=== PATIENT | male | born 1960 | race Caucasian/White ===

== ENCOUNTER 2022-03-05 08:15 | Outpatient (CLI) | payer BC, SELFPAY ==
[2022-03-05 14:59] LABS: PSA Screen* 7.67 ng/mL (0.10-4.00)
== END 2022-03-05 08:16 | disposition home or self-care (01) ==
PROVIDERS: PCP Family Medicine; Visit Provider Family Medicine
DX: R97.20 Elevated prostate specific antigen [PSA] (principal)
CPT/HCPCS: 84153

== ENCOUNTER 2022-03-29 13:44 | Outpatient (CLI) | payer BC, SELFPAY | END 2022-03-29 13:45 | disposition home or self-care (01) | LOC: LKVREF 13:45 | PROVIDERS: PCP Family Medicine; Visit Provider Family Medicine | DX: G51.0 Bell's palsy (principal) | CPT/HCPCS: 86618 ==

== ENCOUNTER 2022-11-05 08:55 | Outpatient (CLI) | payer BC, SELFPAY | END 2022-11-05 08:56 | disposition home or self-care (01) | LOC: NFLDREF 11-06 02:33 | PROVIDERS: PCP Family Medicine; Referring Provider Family Medicine; Visit Provider Family Medicine | DX: E11.9 Type 2 diabetes mellitus without complications (principal); I10 Essential (primary) hypertension; E78.5 Hyperlipidemia, unspecified; R97.20 Elevated prostate specific antigen [PSA] | CPT/HCPCS: 80048; 80061; 82043; 82570 ==

== ENCOUNTER 2023-02-25 09:10 | Outpatient (CLI) | payer BC, SELFPAY | END 2023-02-25 09:11 | disposition home or self-care (01) | LOC: NFLDREF 14:39 | PROVIDERS: PCP Family Medicine; Referring Provider Family Medicine; Visit Provider Family Medicine | DX: I10 Essential (primary) hypertension (principal); E11.9 Type 2 diabetes mellitus without complications; E78.5 Hyperlipidemia, unspecified; C61 Malignant neoplasm of prostate | CPT/HCPCS: 80053; 80061; 82043; 82570 ==

== ENCOUNTER 2023-03-13 08:55 | Outpatient (CLI) | payer BC, SELFPAY | END 2023-03-13 08:56 | disposition home or self-care (01) | LOC: NFLDREF 03-14 13:44 | PROVIDERS: PCP Family Medicine; Referring Provider Family Medicine; Visit Provider Family Medicine | DX: C61 Malignant neoplasm of prostate (principal) | CPT/HCPCS: 84153 ==

== ENCOUNTER 2023-06-12 14:26 | Outpatient (REF) | payer BC, SELFPAY ==
[2023-06-12 15:44] LABS: PSA Diagnostic* 0.56 ng/mL (0.10-4.00)
== END 2023-06-12 14:27 | disposition home or self-care (01) ==
LOC: NPINS 14:26
PROVIDERS: PCP Family Medicine; Visit Provider Urology
DX: C61 Malignant neoplasm of prostate (principal)
CPT/HCPCS: 84153

== ENCOUNTER 2023-06-20 07:04 | Outpatient (CLI) | payer BC, SELFPAY ==
--- NOTE | 2023-06-20 08:48 | W.ANESCHARGE ---
Anesthesia Charges Start Date/Time Anesthesia Start Date: 06/20/23 Anesthesia Start Time: 08:13 Stop Date/Time Anesthesia Stop Date: 06/20/23 Anesthesia Stop Time: 08:45
--- NOTE | 2023-06-20 11:19 | W.ANESCHARGE ---
Anesthesia Charges Start Date/Time Anesthesia Start Date: 06/20/23 Anesthesia Start Time: 08:13 Stop Date/Time Anesthesia Stop Date: 06/20/23 Anesthesia Stop Time: 08:45
== END 2023-06-20 07:05 | disposition home or self-care (01) ==
LOC: OP CLINIC 07:05
PROVIDERS: PCP Family Medicine; Visit Provider Surgery
DX: Z12.11 Encounter for screening for malignant neoplasm of colon (principal); K63.5 Polyp of colon; Z86.010 Personal history of colon polyps
CPT/HCPCS: 00811; 45385; 88305; J2704

== ENCOUNTER 2023-06-27 08:16 | Outpatient (CLI) | payer BC, SELFPAY ==
--- NOTE | 2023-06-27 08:15 | CRLHL7_ITS ---
For Patients: As a result of the Century Cures Act, medical imaging exams and procedure reports are released immediately into your electronic medical record. You may view this report before your referring provider. If you have questions, please contact your health care provider. NM whole-body bone Scan: Technique: Nuclear medicine whole-body bone scan per protocol including anterior and posterior whole body images and spot images of the pelvis. Radiopharmaceutical: 27.2 millicuries technetium 99 M MDP intravenously. Clinical information: Prostate cancer Comparison: CT abdomen pelvis June 27, 2023 Findings: There are no abnormal focal areas of activity suspicious for metastatic disease. Degenerative type uptake is noted within the shoulders, lumbar spine, hips and knees. There is normal renal and urinary bladder activity. There is no abnormal soft tissue uptake. Impression: No scintigraphic evidence of osteoblastic metastatic disease. Dictated by Marlo Gallo MD @ 06/28/2023 8:13:32 AM (Electronically Signed)
--- NOTE | 2023-06-27 09:00 | CRLHL7_ITS ---
For Patients: As a result of the Century Cures Act, medical imaging exams and procedure reports are released immediately into your electronic medical record. You may view this report before your referring provider. If you have questions, please contact your health care provider. Indication: Malignant tumor of prostate Technique: CT Abdomen/Pelvis W/ ISOVUE 370 Please note that all CT scans at this facility use dose modulation, iterative reconstruction, and/or weight-based dosing when appropriate to reduce radiation dose to as low as reasonably achievable. Comparison: None Findings: Lung bases clear. No pleural effusion. No free intraperitoneal air. No suspicious intrahepatic lesion. Mild hepatic steatosis. Gallbladder is incompletely distended. No biliary obstruction. Incidental duodenal diverticulum. No pancreatic lesion. Normal spleen. The adrenal glands are normal. Normal kidneys. No enlarged lymph nodes. Ureters normal. Postop changes prostatectomy. Bladder nondistended. Mild sigmoid diverticulosis. No diverticulitis. No bowel obstruction. No free fluid or abscess. Appendix normal. Small supraumbilical hernia defect containing fat measuring 1 cm. Bilateral pars defects L5 with slight anterolisthesis of L5 on S1. 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 Severe degenerative disc disease L3-4 with discogenic sclerosis. No vertebral body compression fracture. Mild spurring at the hip joints. Impression: No evidence of metastatic disease. Please note that all CT scans at this facility use dose modulation, iterative reconstruction, and/or weight-based dosing when appropriate to reduce radiation dose to as low as reasonably achievable. Dictated by Jean Camacho MD @ 06/27/2023 11:45:18 AM (Electronically Signed)
[2023-06-27 09:14] LABS: Creatinine* 0.7 mg/dL (0.5-1.5); Estimated Glomerular Filt Rate 102 ml/min
== END 2023-06-27 08:17 | disposition home or self-care (01) ==
LOC: NM 08:17
PROVIDERS: PCP Family Medicine; Visit Provider Urology
DX: C61 Malignant neoplasm of prostate (principal)
CPT/HCPCS: 36415; 74177; 78306; 82565; A9503; Q9967

== ENCOUNTER 2023-09-27 08:00 | Outpatient (RCR) | payer BC, MEDICARE, SELFPAY ==
--- NOTE | 2023-07-17 14:19 | URNOTE ---
Prior authorization is not required for Antonio ([id number]) per [facility] REf #[id number]
== END 2024-01-25 23:59 | disposition home or self-care (01) ==
PROVIDERS: PCP Family Medicine; Visit Provider Nurse Practitioner
DX: C61 Malignant neoplasm of prostate (principal); Z51.89 Encounter for other specified aftercare
CPT/HCPCS: 97110; 97162; 97535

== ENCOUNTER 2023-10-03 09:53 | Outpatient (CLI) | payer BC, MEDICARE, SELFPAY | END 2023-10-03 09:54 | disposition home or self-care (01) | LOC: NFLDREF 10-04 06:06 | PROVIDERS: PCP Family Medicine; Referring Provider Family Medicine; Visit Provider Family Medicine | DX: E11.9 Type 2 diabetes mellitus without complications (principal); E78.5 Hyperlipidemia, unspecified; I10 Essential (primary) hypertension; Z79.84 Long term (current) use of oral hypoglycemic drugs; Z79.85 Long-term (current) use of injectable non-insulin antidiabetic drugs | CPT/HCPCS: 80053; 80061 ==

== ENCOUNTER 2023-11-19 10:45 | Outpatient (RCR) | payer BC, MEDICARE, SELFPAY ==
--- NOTE | 2023-07-18 12:10 | PC.NURSE ---
Diagnosis: Prostate Cancer
--- NOTE | 2023-07-18 12:10 | PC.NURSE ---
Called pt today to schedule his first Eligard injection for today or tomorrow per [facility] instructions. Pt states that he hasn't received his bicalutamide yet so cannot get his shot. He was instructed to get his first shot 5 days after starting the oral medication. Vick will call to schedule once he starts. This production underwriter called to update [facility]. Understanding verbalized.
[2023-07-30 13:32] VITALS: BP 112/71; PULSE 77; RESP 16; TEMP 36.5; O2SAT 97
[2023-07-30] MEDS: LEUPROLIDE ACETATE 7.5 MG (SQ) SYRINGE SUBCUT (14:43)
[2023-08-27 13:31] VITALS: BP 128/77; PULSE 77; RESP 16; TEMP 36.3; O2SAT 96
[2023-08-27] MEDS: LEUPROLIDE ACETATE 22.5 MG (SQ) SYRINGE SUBCUT (13:43)
[2023-11-19 09:58] VITALS: BP 130/84; PULSE 82; RESP 16; TEMP 35.3; O2SAT 95
[2023-11-19] MEDS: LEUPROLIDE ACETATE 7.5 MG (SQ) SYRINGE SUBCUT (10:31)
== END 2024-01-26 23:59 | disposition home or self-care (01) ==
LOC: CCIC 10:45
PROVIDERS: PCP Family Medicine; Referring Provider Family Medicine; Visit Provider Clinical Nurse Specialist
DX: C61 Malignant neoplasm of prostate (principal)
CPT/HCPCS: 96401; J9217

== ENCOUNTER 2024-02-07 09:10 | Outpatient (CLI) | payer BC, MEDICARE, SELFPAY ==
--- OUTSIDE RECORDS SUMMARY | 2024-02-07 09:14 | XMS_ITS | Clinical Summary ---
Author Organization [facility] Address [address] [place] [address] Care Team Providers Care Yarder Engineer Name Role Phone Unavailable Primary Care Provider Unavailabl e Source Comments Patient records contain information from all sites at [facility]. For routine questions regarding patient records, call [phone] during business hours, M-F 8:00 AM - 5:00 PM Central Time. Record requests for emergency care only can be directed to [phone] at any time.[facility] Allergies Active Allergy Reactions Criticality Noted Date Comments Flu Vac 2015 (65 Up)-Mf59c(Pf) Other (see comments) 07/04/2023 Haemophilus Influenzae Type B Other (see comments) 01/26/2008 Influenza Virus Vaccines Other (see comments) 0 03/29/2022 Yellow Fever Vaccine Live Other (see comments) 01/26/2008 Medications Medication Sig Dispensed Refills Start Date End Date Status aspirin 81 mg chewable tablet Chew 81 mg. 07/11/2022 Active bisacodyL (DULCOLAX) 10 mg suppository Insert 10 mg into the rectum daily as needed. 07/11/2022 Active Contour Test Strips Use to check blood sugars twice daily.* 06/24/2023 Active calcium carbonate-vitamin D3 1,500 mg (600 mg calcium)-5 mcg (200 Unit) per tablet daily. Active glipiZIDE (GLUCOTROL XL) 10 mg 24 hr tablet TAKE ONE TABLET BY MOUTH TWICE DAILY* Active lisinopril-hydroCH LOROthiazide (PRINZIDE,ZESTORET IC) 20-25 mg per tablet take 1 tab orally daily* 09/14/2021 Active metFORMIN (GLUCOPHAGE) 500 mg tablet Active Ozempic 1 mg/dose (4 mg/3 mL) injection INJECT 1 mg (0.75 mL) subcutaneously every week* Active simvastatin (ZOCOR) 20 mg tablet Take 1 tablet by mouth at bedtime. 09/10/2013 Active SITagliptin phosphate (JANUVIA) 100 mg tablet Take 100 mg by mouth. 09/10/2013 Active bicalutamide (CASODEX) 50 mg tablet Take 1 tablet (50 mg total) by mouth daily for 21 days. Take at the same time everyday. Take with or without food. 21 tablet 07/16/2023 Active Active Problems Problem Noted Date Diagnosed Date Rising Prostate Specific Ant igen Following Treatment For Malignant Cancer Of Prostate 07/01/2023 Primary Malignant Neoplasm Of Prostate Cancer Staging:Pathologic stage from 07/11/2022: pT2, cN0, cM0, PSA: 6.5, Grade Group: 2 - Unsigned Encounters Date Type Department Care Team Description 01/09/2024 Clinical Communication Department of Radiation Oncology in [address] [address] Nathen Baker M.D. 12/03/2023 9:06 AM CDT - 12/03/2023 11:59 PM CDT Hospital Encounter Department of Radiation Oncology in [address] [address] Nathen Baker M.D. Discharge Disposition: Home or Self Care 12/03/2023 Documentation Department of Radiation Oncology in [address] [address] Nathen Baker M.D. 12/02/2023 9:04 AM CDT - 12/02/2023 11:59 PM CDT Hospital Encounter Department of Radiation Oncology in [address] [address] Nathen Baker M.D. Discharge Disposition: Home or Self Care 11/29/2023 9:03 AM CDT - 11/29/2023 11:59 PM CDT Hospital Encounter Department of Radiation Oncology in [address] [address] Nathen Baker M.D. Discharge Disposition: Home or Self Care 11/28/2023 9:05 AM CDT - 11/28/2023 11:59 PM CDT Hospital Encounter Department of Radiation Oncology in [address] [address] Nathen Baker M.D. Discharge Disposition: Home or Self Care 11/27/2023 9:12 AM CDT - 12/02/2023 6:50 PM CDT Hospital Encounter Department of Radiation Oncology in [address] [address] Nathen Baker M.D. Rising Prostate Specific Antigen Following Treatment For Malignant Cancer Of Prostate (Primary Dx); Primary Malignant Neoplasm Of Prostate (HCC) 11/27/2023 9:11 AM CDT Hospital Encounter Department of Radiation Oncology in [address] [address] Nathen Baker M.D. Discharge Disposition: Home or Self Care 11/26/2023 9:05 AM CDT - 11/26/2023 11:59 PM CDT Hospital Encounter Department of Radiation Oncology in [address] [address] Nathen Baker M.D. Discharge Disposition: Home or Self Care 11/25/2023 9:04 AM CDT - 11/25/2023 11:59 PM CDT Hospital Encounter Department of Radiation Oncology in [address] [address] Nathen Baker M.D. Discharge Disposition: Home or Self Care 11/22/2023 9:00 AM CDT - 11/22/2023 11:59 PM CDT Hospital Encounter Department of Radiation Oncology in [address] [address] Nathen Baker M.D. Discharge Disposition: Home or Self Care 11/21/2023 9:02 AM CDT - 11/21/2023 11:59 PM CDT Hospital Encounter Department of Radiation Oncology in [address] [address] Nathen Baker M.D. Discharge Disposition: Home or Self Care 11/20/2023 9:01 AM CDT - 11/22/2023 10:02 PM CDT Hospital Encounter Department of Radiation Oncology in [address] [address] Nathen Baker M.D. Primary Malignant Neoplasm Of Prostate (HCC) 11/20/2023 9:01 AM CDT - 11/20/2023 11:59 PM CDT Hospital Encounter Department of Radiation Oncology in [address] [address] Nathen Baker M.D. Discharge Disposition: Home or Self Care 11/19/2023 9:03 AM CDT - 11/19/2023 11:59 PM CDT Hospital Encounter Department of Radiation Oncology in [address] [address] Nathen Baker M.D. Discharge Disposition: Home or Self Care 11/18/2023 9:01 AM CDT - 11/18/2023 11:59 PM CDT Hospital Encounter Department of Radiation Oncology in [address] [address] Nathen Baker M.D. Discharge Disposition: Home or Self Care 11/15/2023 9:02 AM CDT - 11/15/2023 11:59 PM CDT Hospital Encounter Department of Radiation Oncology in [address] [address] Nathen Baker M.D. Discharge Disposition: Home or Self Care 11/14/2023 9:02 AM CDT - 11/14/2023 11:59 PM CDT Hospital Encounter Department of Radiation Oncology in [address] [address] Nathen Baker M.D. Discharge Disposition: Home or Self Care 11/13/2023 9:04 AM CDT - 11/15/2023 9:58 AM CDT Hospital Encounter Department of Radiation Oncology in [address] [address] Nathen Baker M.D. Primary Malignant Neoplasm Of Prostate (HCC) 11/13/2023 9:04 AM CDT - 11/13/2023 11:59 PM CDT Hospital Encounter Department of Radiation Oncology in [address] [address] Nathen Baker M.D. Discharge Disposition: Home or Self Care 11/12/2023 9:02 AM CDT - 11/12/2023 11:59 PM CDT Hospital Encounter Department of Radiation Oncology in [address] [address] Nathen Baker M.D. Discharge Disposition: Home or Self Care 11/11/2023 9:03 AM CDT - 11/11/2023 11:59 PM CDT Hospital Encounter Department of Radiation Oncology in [address] [address] Nathen Baker M.D. Discharge Disposition: Home or Self Care 11/08/2023 9:02 AM CDT - 11/08/2023 11:59 PM CDT Hospital Encounter Department of Radiation Oncology in [address] [address] Nathen Baker M.D. Discharge Disposition: Home or Self Care 11/06/2023 9:03 AM CDT - 11/10/2023 1:15 PM CDT Hospital Encounter Department of Radiation Oncology in [address] [address] Nathen Baker M.D. Primary Malignant Neoplasm Of Prostate (HCC) from Last 3 Months Family History Medical History Relation Name Comments Skin cancer Father Breast cancer Paternal Grandmother Kidney cancer Sister Prostate cancer Neg Hx Relation Name Status Comments Father Paternal Grandmother Sister Social History Tobacco Use Types Packs/Day Years Used Date Smoking Tobacco: Never Smokeless Tobacco: Never Tobacco Cessation:Counseling Given: Not Answered Alcohol Use Standard Drinks/Week Comments Yes 0 (1 standard drink = 0.6 oz pur e alcohol) rarely [facility] Utilities Answer Date Recorded In the past 12 months has e [employer], gas, oil, or water [employer] threatened to shut off services in your home? No 06/28/2023 Exercise Vital Sign Answer Date Recorde d On average, how many days pe r week do you engage in moderate to strenuous exercise (like a brisk walk)? 4 days 06/28/2023 On average, how many minutes do you engage in exercise at this level? 20 min 06/28/2023 Hunger Vital Sign Answer Date Recorded Within the past 12 months, y ou worried that your food would run out before you got the money to buy more. Never true 06/28/20 Within the past 12 months, t he food you bought just didn't last and you didn't have money to get more. Never true 06/28/2023 PRAPARE - Transportation Answer Date Re corded In the past 12 months, has l ack of transportation kept you from medical appointments or from getting medications? No 06/14 In the past 12 months, has l ack of transportation kept you from meetings, work, or from getting things needed for daily living? No 06/28/2023 Nutrition Answer Date Recorded Nutrition: EVOO Fat Source Unknown 06/28 On average, how many serving s of fruits and vegetables do you eat per day (serving size is equal to 1 cup or approximately the size of a tennis ball)? 0-2 06/28/2023 Dental Answer Date Recorded Dental: Regular Dentist Yes 06/28/20 Employment Answer Date Recorded Employment status Employed and actively working without restrictions 06/28/2023 Housing Stability Answer Date Recorded What is your living situation today? I have a [facility] place to live 06/28/2023 Sex and Gender Information Value Date Recorded Sex Assigned at Male 06/28/2023 6:50 PM DIRECTOR UTILIZATION MANAGEMENT Gender Identity Male 06/28/2023 6:50 PM DIRECTOR UTILIZATION MANAGEMENT Sexual Orientation Straight 06/28/2023 6: 50 PM DIRECTOR UTILIZATION MANAGEMENT Last Filed Vital Signs Vital Sign Reading Time Taken Comments Blood Pressure 138/67 10/03/2023 1:28 PM CDT Pulse 87 10/03/2023 1:28 PM CDT Temperature 36.7 ??C (98 ??F) 11/27/2023 9:43 AM CDT Respiratory Rate - - Oxygen Saturation - - Inhaled Oxygen Concentration - - Weight 101 kg (223 lb 1.7 oz) 11/27/2023 9:43 AM CDT Height - - Body Mass Index - - Plan of Treatment Upcoming Encounters Date Type Department Care Team (Latest Contact Info) Description 03/30/2024 9:45 AM CDT Clinical Communication Virtual Review in [place], [place] [address] [place] [address] 04/01/2024 3:30 PM CDT Appointment Department of Radiation Oncology in [address] [address] Nathen Baker M.D. [address] [place] [phone] Health Maintenance Due Date Last Done Comments CT Colonography 1958 Cologuard 1958 HIV Screening 1960 Hepatitis C Screening 1960 Pneumococcal vaccine (65+ years) (1 of 2 - PCV) 1964 DTaP,Tdap,and Td Vaccines (3 - Td or Tdap) 06/10/2022 06/10/2012, 12/05/2007, 12/05/2007, Additional history exists Colonoscopy 07/14/2022 07/14/2017, 01/04/2009 Colorectal Cancer Surveillance 07/14/2022 COVID-19 Vaccine ( season) 2023 03/26/2022, 07/05/2021, 10/28/2020, Additional history exists Creatinine Level (Kidney Function Test) 07/12/2023 07/12/2022 Potassium Level 07/12/2023 07/12/2022 Sodium Level 07/12/2023 07/12/2022 Depression Screening (Annual PHQ-2) 07/15/2023 Fasting Glucose for Diabetes Screening 07/11/2026 07/11/2023, 07/12/2022 Zoster Vaccines Completed 10/19/2020, 08/15, 08/19/2020, Additional history exists Fall Risk Screen (Annual) Completed 10/25/2023 HPV Vaccines Aged Out No longer eligi ble based on patient's age to complete this topic Procedures Procedure Name Priority Date/Time Associated Diagnosis Comments ARIA COURSE COMPLETE TREATMENT INFORMATION Routine 12/03/2023 9:15 AM CDT ARIA DAILY TREATMENT INFORMATION Routine 12/03/2023 9:15 AM CDT ARIA DAILY TREATMENT INFORMATION Routine 12/02/2023 9:13 AM CDT ARIA DAILY TREATMENT INFORMATION Routine 11/29/2023 9:21 AM CDT ARIA DAILY TREATMENT INFORMATION Routine 11/28/2023 9:46 AM CDT ARIA DAILY TREATMENT INFORMATION Routine 11/27/2023 9:30 AM CDT ARIA DAILY TREATMENT INFORMATION Routine 11/26/2023 9:26 AM CDT ARIA DAILY TREATMENT INFORMATION Routine 11/25/2023 9:17 AM CDT ARIA DAILY TREATMENT INFORMATION Routine 11/22/2023 9:24 AM CDT ARIA DAILY TREATMENT INFORMATION Routine 11/21/2023 9:15 AM CDT ARIA DAILY TREATMENT INFORMATION Routine 11/20/2023 9:17 AM CDT ARIA DAILY TREATMENT INFORMATION Routine 11/19/2023 9:15 AM CDT ARIA DAILY TREATMENT INFORMATION Routine 11/18/2023 9:21 AM CDT ARIA DAILY TREATMENT INFORMATION Routine 11/15/2023 9:32 AM CDT ARIA DAILY TREATMENT INFORMATION Routine 11/14/2023 9:55 AM CDT ARIA DAILY TREATMENT INFORMATION Routine 11/13/2023 9:30 AM CDT ARIA DAILY TREATMENT INFORMATION Routine 11/12/2023 9:22 AM CDT ARIA DAILY TREATMENT INFORMATION Routine 11/11/2023 9:18 AM CDT ARIA DAILY TREATMENT INFORMATION Routine 11/08/2023 10:19 AM CDT GLUCOSE POCT, B Routine 07/11/2023 2:50 PM DIRECTOR UTILIZATION MANAGEMENT from Last 3 Months or Most Recently Relevant to Health Maintenance Results * Aria Course Complete Treatment Information (12/03/2023 9:15 AM CDT) [facility] Signature Course ID [id number] ESQUEDA ARIA Course Start Date 4 09:30 CDT ESQUEDA ARIA Course End Date 4 16:06 CDT ESQUEDA ARIA First Treatment Date 4 11:34 CDT ESQUEDA ARIA Last Treatment Date 4 09:15 CDT ESQUEDA ARIA Treatment Elapsed Days 43 ESQUEDA ARIA Reference Point [id number] ESQUEDA ARIA Dosage Given to Date cGy 6880 ESQUEDA ARIA Plan ID [id number] ESQUEDA ARIA Fractions Treated to Date 25 ESQUEDA ARIA Planned Total Fractions 25 ESQUEDA ARIA Prescribed Dose Per Fraction 215 ESQUEDA ARIA Prescription Dose in cGy 5375 ESQUEDA ARIA Plan Primary Reference Point [id number] ESQUEDA ARIA Plan ID [id number] ESQUEDA ARIA Fractions Treated to Date 7 ESQUEDA ARIA Planned Total Fractions 7 ESQUEDA ARIA Prescribed Dose Per Fraction 215 ESQUEDA ARIA Prescription Dose in cGy 1505 ESQUEDA ARIA Plan Primary Reference Point [id number] ESQUEDA ARIA 12/03/2023 9:15 AM CDT Provider Not In System RADIATION ONCOLOG Y ORDERABLES YIN LIZAMA na * Aria Daily Treatment Information (12/03/2023 9:15 AM CDT) Only the most recent of18 resultswithin the time period is included. Course ID [id number] ESQUEDA ARIA Course Start Date 4 09:30 CDT ESQUEDA ARIA First Treatment Date 4 11:34 CDT ESQUEDA ARIA Last Treatment Date 4 09:15 CDT ESQUEDA ARIA Treatment Elapsed Days 43 ESQUEDA ARIA Reference Point [id number] ESQUEDA ARIA Dosage Given to Date cGy 6880 ESQUEDA ARIA Session Dosage Given 215 ESQUEDA ARIA Plan ID [id number] ESQUEDA ARIA Fractions Treated to Date 7 ESQUEDA ARIA Planned Total Fractions 7 ESQUEDA ARIA Prescribed Dose Per Fraction 215 ESQUEDA ARIA Prescription Dose in cGy 1505 ESQUEDA ARIA Plan Primary Reference Point [id number] ESQUEDA ARIA 12/03/2023 9:15 AM CDT Provider Not In System RADIATION ONCOLOG Y ORDERABLES Performing Organization Address City/[facility] Co de Phone Number YIN LIZAMA na * (ABNORMAL) Glucose, POCT (07/11/2023 2:50 PM DIRECTOR UTILIZATION MANAGEMENT) Glucose, POCT, B 212(H) 70 - 140 mg/dL 07/11/2023 2:54 PM DIRECTOR UTILIZATION MANAGEMENT PCMO Site Capillary 07/11/2023 2:54 PM DIRECTOR UTILIZATION MANAGEMENT PCMO Blood 07/11/2023 2:50 PM DIRECTOR UTILIZATION MANAGEMENT 07/11/2023 2:54 PM DIRECTOR UTILIZATION MANAGEMENT Unknown Provider LAB POCT ORDERABLES- MANUAL POC [facility] [address] [place] [address], [facility] PCMO [facility] POC [address] [place] [address] from Last 3 Months or Most Recently Relevant to Health Maintenance
--- OUTSIDE RECORDS SUMMARY | 2024-02-07 09:14 | XMS_ITS | Encounter Summary ---
Author Organization [facility] Address [address] [place] [address] Care Team Providers Care .Net Programmer Name Role Phone Unavailable Primary Care Provider Unavailabl e Encounter Details Date Type Department Care Team (Late st Contact Info) Description 01/09/2024 Clinical Communication Department of Radiation Oncology in [place], [place] [address] [place] [address] Nathen Baker M.D. [address] [place] [address] Social History Tobacco Use Types Packs/Day Years Used Date Smoking Tobacco: Never Smokeless Tobacco: Never Alcohol Use Standard Drinks/Week Comments Yes 0 (1 standard drink = 0.6 oz pur e alcohol) rarely [facility] Utilities Answer Date Recorded In the past 12 months has [employer], gas, oil, or water [employer] threatened to shut off services in your [...] money to buy more. Never true 06/28/20 23 Within the past 12 months, t he [...] your living situation today? I have a [facility] place to live 06/28/2023 Sex and Gender Information Value Date Recorded Sex Assigned at Male 06/28/2023 6:50 PM ORAL SURGERY PHYSICIAN Gender Identity Male 06/28/2023 6:50 PM ORAL SURGERY PHYSICIAN Sexual Orientation Straight 06/28/2023 6: 50 PM ORAL SURGERY PHYSICIAN documented as of this encounter Plan of Treatment Upcoming Encounters Date Type Department Care Team (Latest Contact Info) Description 03/30/2024 9:45 AM CDT Clinical Communication Virtual Review in [place], [place] [address] [place] [address] 04/01/2024 3:30 PM CDT Appointment Department of Radiation Oncology in [place] [address] [place] [address] Nathen Baker M.D. [address] [place] [address] documented as of this encounter Visit Diagnoses Not on filedocumented in this encounter
--- OUTSIDE RECORDS SUMMARY | 2024-02-07 09:14 | XMS_ITS | Encounter Summary ---
Author Organization [facility] Address [address] [place] [address] Care Team Providers Care Amusement Centre Manager Name Role Phone Unavailable Primary Care Provider Unavailabl e Encounter Details Date Type Department Care Team (Late st Contact Info) Description 12/03/2023 Documentation Department of Radiation Oncology in [place], [place] [address] [place] [address] Nathen Baker M.D. [address] [place] [phone] Social History Tobacco Use Types Packs/Day Years Used Date Smoking Tobacco: Never Smokeless Tobacco: Never Alcohol Use Standard Drinks/Week Comments Yes 0 (1 standard drink = 0.6 oz pur e alcohol) rarely [facility] Utilities Answer Date Recorded In the past 12 months has [employer], [employer], oil, or water [employer] threatened to shut off services in your [...] your living situation today? I have a [facility] place to live 06/28/2023 Sex and Gender Information Value Date Recorded Sex Assigned at Male 06/28/2023 6:50 PM C SOFTWARE DEVELOPER Gender Identity Male 06/28/2023 6:50 PM C SOFTWARE DEVELOPER Sexual Orientation Straight 06/28/2023 6: 50 PM C SOFTWARE DEVELOPER documented as of this encounter Miscellaneous Notes * Radiation Completion Notes - Anni Godwin R.N. - 12/03/2023 11:59 PM CDT DIAGNOSIS: 1. Primary Malignant Neoplasm Of Prostate (HCC) Attending Physician: Nathen Baker M.D. ([phone]) Treatment Intent: Curative Concomitant Therapy: Hormonal Therapy Single Plan Treatment Course: [id number] Plan ID Fractions Dose / Fraction (cGy) Dose Treated (cGy) Dose Planned (cGy) First Treatment Last Treatment Elapsed Days [id number] 215 5375 5375 10/21/2023 11/22/2023 32 [id number] 215 1505 1505 11/25/2023 12/03/2023 8 Treatment Site Summary 6880 6880 10/21/2023 12/03/2023 43 Course Summary 10/21/2023 12/03/2023 43 Radiation Modality: Photons CLINICAL SUMMARY Mr. Vick Lafleur completed radiation treatment as planned without interruptions. The course of treatment was tolerated well. The patient experienced toxicities of grade 1 diarrhea and grade 1 urinary frequency during radiation treatment. TREATMENT RESPONSE: Response to treatment will be determined by post-treatment imaging and/or laboratory work. RECOMMENDED FOLLOW UP: Radiation Oncologist. He will follow-up with us in March after pre-visitPSA and testosterone labs are drawn at [facility] in [place]. Signed by: Anni Godwin R.N., 12/16/2023 2:59 PM CDT [facility] [address] [place] [address] documented in this encounter Plan of Treatment Upcoming Encounters Date Type Department Care Team (Latest Contact Info) Description 03/30/2024 9:45 AM CDT Clinical Communication Virtual Review in [address] [address] 04/01/2024 3:30 PM CDT Appointment Department of Radiation Oncology in [address] [address] Nathen Baker M.D. [address] [place] [phone] documented as of this encounter Visit Diagnoses Diagnosis Primary Malignant Neoplasm Of Prostate (HCC)- Primary documented in this encounter
--- OUTSIDE RECORDS SUMMARY | 2024-02-07 09:14 | XMS_ITS | Encounter Summary ---
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 200 [place] [address] [facility] Referral ID Status Reason Start Date Expiration Date V isits Requested Visits Authorized [id number] Authorized 10/16/2023 07/14/2024 36 36 Encounter Details Date Type Department Care Team (Latest Contact Info) Description 12/02/2023 9:04 AM CDT - 12/02/2023 11:59 PM CDT Hospital Encounter Department of Radiation Oncology in [place], [place] [address] [place] [phone] Nathen Baker M.D. [address] [place] [phone] Discharge Disposition: Home or Self Care Social History Tobacco Use Types Packs/Day Years Used Date Smoking Tobacco: Never Smokeless Tobacco: Never Alcohol Use Standard Drinks/Week Comments Yes 0 (1 standard drink = 0.6 oz pur e alcohol) rarely [facility] Utilities Answer Date Recorded In the past 12 months has e [employer], [employer], oil, or water [employer] threatened to shut off services in your [...] your living situation today? 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 07/11/2022 bisacodyL (DULCOLAX) 10 mg suppository Insert 10 mg into the rectum daily as needed. 07/11/2022 calcium carbonate-vitamin D3 1,500 mg (600 mg calcium)-5 mcg (200 Unit) per tablet daily. Contour Test Strips Use to check blood sugars twice daily.* 06/24/2023 glipiZIDE (GLUCOTROL XL) 10 mg 24 hr tablet TAKE ONE TABLET BY MOUTH TWICE DAILY* lisinopril-hydroCHLORO thiazide (PRINZIDE,ZESTORETIC) 20-25 mg per tablet take 1 tab orally daily* metFORMIN (GLUCOPHAGE) 500 mg tablet Ozempic 1 mg/dose (4 mg/3 mL) injection INJECT 1 mg (0.75 mL) subcutaneously every week* simvastatin (ZOCOR) 20 mg tablet Take 1 tablet by mouth at bedtime. 09/10/2013 SITagliptin phosphate (JANUVIA) 100 mg tablet Take 100 mg by mouth. 09/10/2013 documented as of this encounter Plan of Treatment Upcoming Encounters Date Type Department Care Team (Latest Contact Info) Description 03/30/2024 9:45 AM CDT Clinical Communication Virtual Review in [place], [place] 200 [place] [address] 04/01/2024 3:30 PM CDT Appointment Department of Radiation Oncology in [address] [phone] Nathen Baker M.D. [address] [place] [phone] documented as of this encounter Visit Diagnoses Not on filedocumented in this encounter
--- OUTSIDE RECORDS SUMMARY | 2024-02-07 09:14 | XMS_ITS | Encounter Summary ---
Author Organization [facility] Address [address] [place] [address] Care Team Providers Care Transfer Pumper Name Role Phone Unavailable Primary Care Provider Unavailabl e Reason for Visit * Radiation Therapy (Routine) - Authorized Specialty Diagnoses / Procedures Referred By Amandeep baez Referred To Contact Diagnoses Primary Malignant Neoplasm Of Prostate (HCC) Procedures Prior Auth Rad Tx [place] IMRT SIMPLE IMRT prostate Nathen Baker M.D. 200 [place] [address] [facility] Referral ID Status Reason Start Date Expiration Date V isits Requested Visits Authorized [id number] Authorized 10/16/2023 07/14/2024 36 36 Encounter Details Date Type Department Care Team (Latest Contact Info) Description 11/29/2023 9:03 AM CDT - 11/29/2023 11:59 PM CDT Hospital Encounter Department of Radiation Oncology in [place], [place] [address] [place] [phone] Nathen Baker M.D. [address] [place] [phone] Discharge Disposition: Home or Self Care Social History Tobacco Use Types Packs/Day Years Used Date Smoking Tobacco: Never Smokeless Tobacco: Never Alcohol Use Standard Drinks/Week Comments Yes 0 (1 standard drink = 0.6 oz pur e alcohol) rarely [facility] Utilities Answer Date Recorded In the past 12 months has e [employer], [employer], oil, or water [employer] threatened to shut off services in your [...] your living situation today? 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 [address] [place] [phone] documented as of this encounter Visit Diagnoses Not on filedocumented in this encounter
--- OUTSIDE RECORDS SUMMARY | 2024-02-07 09:14 | XMS_ITS | Referral Summary ---
Author Organization [facility] Address [address] [place] [address] Care Team Providers Care Assurance Senior Manager Insurance Name Role Phone Unavailable Primary Care Provider Unavailabl e Source Comments Patient records contain information from all sites at [facility]. For routine questions regarding patient records, call [phone] during business hours, M-F 8:00 AM - 5:00 PM Central Time. Record requests for emergency care only can be directed to [phone] at any time.[facility] Encounters Date Type Department Care Team Description 01/09/2024 Clinical Communication Department of Radiation Oncology in [address] [phone] Nathen Baker M.D. 12/03/2023 Documentation Department of Radiation Oncology in [address] [phone] Nathen Baker M.D. 12/03/2023 9:06 AM CDT - 12/03/2023 11:59 PM CDT Hospital Encounter Department of Radiation Oncology in [address] [address] Nathen Baker M.D. Discharge Disposition: Home or Self Care 12/02/2023 9:04 AM CDT - 12/02/2023 11:59 PM CDT Hospital Encounter Department of Radiation Oncology in [address] [address] Nathen Baker M.D. Discharge Disposition: Home or Self Care 11/27/2023 9:12 AM CDT - 12/02/2023 6:50 PM CDT Hospital Encounter Department of Radiation Oncology in [address] [address] Nathen Baker M.D. Rising Prostate Specific Antigen Following Treatment For Malignant Cancer Of Prostate (Primary Dx); Primary Malignant Neoplasm Of Prostate (HCC) 11/29/2023 9:03 AM CDT - 11/29/2023 11:59 PM CDT Hospital Encounter Department of Radiation Oncology in [address] [address] Nathen Baker M.D. Discharge Disposition: Home or Self Care 11/28/2023 9:05 AM CDT - 11/28/2023 11:59 PM CDT Hospital Encounter Department of Radiation Oncology in [address] [address] Nathen Baker M.D. Discharge Disposition: Home or Self Care 11/27/2023 9:11 AM CDT Hospital Encounter Department of Radiation Oncology in [address] [phone] Nathen Baker M.D. Discharge Disposition: Home or Self Care 11/26/2023 9:05 AM CDT - 11/26/2023 11:59 PM CDT Hospital Encounter Department of Radiation Oncology in [address] [address] Nathen Baker M.D. Discharge Disposition: Home or Self Care 11/25/2023 9:04 AM CDT - 11/25/2023 11:59 PM CDT Hospital Encounter Department of Radiation Oncology in [address] [address] Nathen Baker M.D. Discharge Disposition: Home or Self Care 11/22/2023 9:00 AM CDT - 11/22/2023 11:59 PM CDT Hospital Encounter Department of Radiation Oncology in [address] [address] Nathen Baker M.D. Discharge Disposition: Home or Self Care 11/20/2023 9:01 AM CDT - 11/22/2023 10:02 PM CDT Hospital Encounter Department of Radiation Oncology in [address] [phone] Nathen Baker M.D. Primary Malignant Neoplasm Of Prostate (HCC) 11/21/2023 9:02 AM CDT - 11/21/2023 11:59 PM CDT Hospital Encounter Department of Radiation Oncology in [address] [address] Nathen Baker M.D. Discharge Disposition: Home or Self Care 11/20/2023 9:01 AM CDT - 11/20/2023 11:59 PM CDT Hospital Encounter Department of Radiation Oncology in [address] [address] Nathen Baker M.D. Discharge Disposition: Home or Self Care 11/19/2023 9:03 AM CDT - 11/19/2023 11:59 PM CDT Hospital Encounter Department of Radiation Oncology in [address] [address] Nathen Baker M.D. Discharge Disposition: Home or Self Care 11/18/2023 9:01 AM CDT - 11/18/2023 11:59 PM CDT Hospital Encounter Department of Radiation Oncology in [address] [address] Nathen Baker M.D. Discharge Disposition: Home or Self Care 11/15/2023 9:02 AM CDT - 11/15/2023 11:59 PM CDT Hospital Encounter Department of Radiation Oncology in [address] [address] Nathen Baker M.D. Discharge Disposition: Home or Self Care 11/13/2023 9:04 AM CDT - 11/15/2023 9:58 AM CDT Hospital Encounter Department of Radiation Oncology in [address] [address] Nathen Baker M.D. Primary Malignant Neoplasm Of Prostate (HCC) 11/14/2023 9:02 AM CDT - 11/14/2023 11:59 PM CDT Hospital Encounter Department of Radiation Oncology in [address] [address] Nathen Baker M.D. Discharge Disposition: Home or Self Care 11/13/2023 9:04 AM CDT - 11/13/2023 11:59 PM CDT Hospital Encounter Department of Radiation Oncology in [address] [address] Nathen Baker M.D. Discharge Disposition: Home or Self Care 11/12/2023 9:02 AM CDT - 11/12/2023 11:59 PM CDT Hospital Encounter Department of Radiation Oncology in [address] [address] Nathen Baker M.D. Discharge Disposition: Home or Self Care 11/11/2023 9:03 AM CDT - 11/11/2023 11:59 PM CDT Hospital Encounter Department of Radiation Oncology in [address] [address] Nathen Baker M.D. Discharge Disposition: Home or Self Care 11/06/2023 9:03 AM CDT - 11/10/2023 1:15 PM CDT Hospital Encounter Department of Radiation Oncology in [address] [address] Nathen Baker M.D. Primary Malignant Neoplasm Of Prostate (HCC) 11/08/2023 9:02 AM CDT - 11/08/2023 11:59 PM CDT Hospital Encounter Department of Radiation Oncology in [place], [place] [address] [place] [address] Nathen Baker M.D. Discharge Disposition: Home or Self Care from Last 3 Months Allergies Active Allergy Reactions Criticality Noted Date Comments Flu Vac 2014 (65 Up)-Mf59c(Pf) Other (see comments) 07/04/2023 Haemophilus [...] PSA: 6.5, Grade Group: 2 - Unsigned Social History Tobacco Use Types Packs/Day Years Used Date Smoking Tobacco: Never Smokeless Tobacco: Never Tobacco Cessation:Counseling Given: Not Answered Alcohol Use Standard Drinks/Week Comments Yes 0 (1 standard drink = 0.6 oz pur e alcohol) rarely [facility] Utilities Answer Date Recorded In the past 12 months has e electric, gas, oil, or water company threatened to shut off services in your [...] your living situation today? I have a [facility] place to live 06/28/2023 Sex and Gender Information Value Date Recorded Sex Assigned at Male 06/28/2023 6:50 PM ACCOUNTS PAYABLE ASSOCIATE Gender Identity Male 06/28/2023 6:50 PM ACCOUNTS PAYABLE ASSOCIATE Sexual Orientation Straight 06/28/2023 6: 50 PM ACCOUNTS PAYABLE ASSOCIATE Last Filed Vital Signs Vital Sign Reading [...] AM CDT Clinical Communication Virtual Review in [place], [place] [address] [place] [address] 04/01/2024 3:30 PM CDT Appointment Department of Radiation Oncology in [place], [place] [address] [place] [phone] Nathen Baker M.D. [address] [place] [address] Procedures Procedure Name Priority Date/Time Associated Diagnosis [...] GLUCOSE POCT, B Routine 07/11/2023 2:50 PM ACCOUNTS PAYABLE ASSOCIATE from Last 3 Months or Most Recently Relevant to Health Maintenance Results * Aria Course Complete Treatment Information (12/03/2023 9:15 AM CDT) [facility] Signature Course ID [id number] ESQUEDA ARIA Course Start Date 4 09:30 CDT [place] ARIA Course End Date 4 16:06 CDT [place] ARIA First Treatment Date 4 11:34 CDT ESQUEDA ARIA Last Treatment Date 4 09:15 CDT ESQUEDA ARIA Treatment Elapsed Days 43 [place] ARIA Reference Point [id number] ESQUEDA ARIA Dosage Given to Date cGy 6880 ESQUEDA ARIA Plan ID [id number] ESQUEDA ARIA Fractions Treated to Date 25 ESQUEDA ARIA Planned Total Fractions 25 ESQUEDA ARIA Prescribed Dose Per Fraction 215 ESQUEDA ARIA Prescription Dose in cGy 5375 ESQUEDA ARIA Plan Primary Reference Point [id number] ESQUEDA ARIA Plan ID [id number] S ESQUEDA ARIA Fractions Treated to Date 7 ESQUEDA ARIA Planned Total Fractions 7 ESQUEDA ARIA Prescribed Dose Per Fraction 215 ESQUEDA ARIA Prescription Dose in cGy 1505 ESQUEDA ARIA Plan Primary Reference Point [id number] ESQUEDA ARIA 12/03/2023 9:15 AM CDT Provider [...] Elapsed Days 43 ESQUEDA ARIA Reference Point [id number] ESQUEDA ARIA Dosage Given to Date cGy 6880 ESQUEDA ARIA Session Dosage Given 215 ESQUEDA ARIA Plan ID [id number] S ESQUEDA ARIA Fractions Treated to Date 7 ESQUEDA ARIA Planned Total Fractions 7 ESQUEDA ARIA Prescribed Dose Per Fraction 215 ESQUEDA ARIA Prescription Dose in cGy 1505 ESQUEDA ARIA Plan Primary Reference Point [id number] ESQUEDA ARIA 12/03/2023 9:15 AM CDT Provider Not In System RADIATION ONCOLOG Y ORDERABLES YIN LIZAMA na * (ABNORMAL) Glucose, POCT (07/11/2023 2:50 PM ACCOUNTS PAYABLE ASSOCIATE) Glucose, POCT, B 212(H) 70 - 140 mg/dL 07/11/2023 2:54 PM ACCOUNTS PAYABLE ASSOCIATE PCMO Site Capillary 07/11/2023 2:54 PM ACCOUNTS PAYABLE ASSOCIATE PCMO Blood 07/11/2023 2:50 PM ACCOUNTS PAYABLE ASSOCIATE 07/11/2023 2:54 PM ACCOUNTS PAYABLE ASSOCIATE Unknown Provider LAB POCT ORDERABLES- MANUAL POC [facility] [address] [place] [address], [facility] PCMO [facility] POC [address] [place] [address] from Last 3 Months or Most Recently Relevant to Health Maintenance
--- OUTSIDE RECORDS SUMMARY | 2024-02-07 09:14 | XMS_ITS ---
Author Organization [facility] Address [address] [place] [address] Care Team Providers Care Spanner Operator Name Role Phone Unavailable Primary Care Provider Unavailabl e Active Problems Problem Noted Date Diagnosed Date Rising Prostate Specific Ant igen Following Treatment For Malignant Cancer Of Prostate 07/01/2023 Primary Malignant Neoplasm Of Prostate Cancer Staging:Pathologic stage from 07/11/2022: pT2, cN0, cM0, PSA: 6.5, Grade Group: 2 - Unsigned Current Oncology Plans Leuprolide Acetate Every 12 Weeks* Plan Start Date:08/27/2023 Plan Provider:Magdalena Haskins APRN, C.N.P., D.N.P. Linked Problems Primary Malignant Neoplasm O f Prostate (HCC) Treatment Medications No medications scheduled. Leuprolide Acetate Every 4 Weeks* Plan Start Date:11/20/2023 Plan Provider:Nathen Baker M.D. Linked Problems Primary Malignant Neoplasm O f Prostate (HCC)Rising Prostate Specific Antigen Following Treatment For Malignant Cancer Of Prostate Treatment Medications No medications scheduled. Past Plans Hem/Onc Therapy Plan 1 Plan Name Start Date Discontinue Date Treatment Medications Discontinue Reason Plan Provider Leuprolide Acetate Every 4 Weeks 07/12/2023 08/26/2023 No medications scheduled. Amendment Change Nathen Baker M.D. Radiation Treatments * Plan Last Treated On Elapsed Days Fractions Treated Prescribed Fraction Dose Prescribed Total Dose [id number] 12/03/2023 43 7 of 7 215 cGy 1,505 cGy [id number] 11/22/2023 32 25 of 25 215 cGy 5,375 cGy Reference Point Last Treated On Elapsed Days Session Dose Total Dose [id number] 12/03/2023 43 215 cGy 6,880 cGy
--- OUTSIDE RECORDS SUMMARY | 2024-02-07 09:14 | XMS_ITS | Encounter Summary ---
Author Organization [facility] Address [address] [place] [address] Care Team Providers Care Manager Star Name Role Phone Unavailable Primary Care Provider Unavailabl e Reason for Referral * Outpatient (Routine) - Authorized Specialty Diagnoses / Procedures Referred By Amandeep baez Referred To Contact Radiation Oncology Nathen Baker M.D. [address] [place] [address] [facility] Region Referral ID Status Reason Start Date Expiration Date V isits Requested Visits Authorized [id number] Authorized 12/02/2023 06/02/2025 1 1 Scheduling Instructions Mar 2024 * Radiation Therapy (Routine) - Authorized Specialty Diagnoses / Procedures Referred By Amandeep baez Referred To Contact Diagnoses Primary Malignant Neoplasm Of Prostate (HCC) Procedures Management Visit Nathen Baker M.D. [address] [place] [address] [facility] Region Referral ID Status Reason Start Date Expiration Date V isits Requested Visits Authorized [id number] Authorized 08/26/2023 08/25/2024 10 10 Reason for Visit * Radiation Therapy (Routine) - Authorized Specialty Diagnoses / Procedures Referred By Contac t Referred To Contact Diagnoses Primary Malignant Neoplasm Of Prostate (HCC) Procedures Management Visit Nathen Baker M.D. [address] [place] [address] [facility] Referral ID Status Reason Start Date Expiration Date V isits Requested Visits Authorized [id number] Authorized 08/26/2023 08/25/2024 10 10 Encounter Details Date Type Department Care Team (Latest Contact Info) Description 11/27/2023 9:12 AM CDT - 12/02/2023 6:50 PM CDT Hospital Encounter Department of Radiation Oncology in [place], [place] [address] [place] [phone] Nathen Baker M.D. [address] [place] [phone] Rising Prostate Specific Antigen Following Treatment For Malignant Cancer Of Prostate (Primary Dx); Primary Malignant Neoplasm Of Prostate (HCC) Social History Tobacco Use Types Packs/Day Years Used Date Smoking Tobacco: Never Smokeless Tobacco: Never Alcohol Use Standard Drinks/Week Comments Yes 0 (1 standard drink = 0.6 oz pur e alcohol) rarely [facility] Utilities Answer Date Recorded In the past 12 months has e [employer], gas, oil, or water [employer] threatened to shut off services in your [...] your living situation today? I have a [facility] place to live 06/28/2023 Sex and Gender Information Value Date Recorded Sex Assigned at Male 06/28/2023 6:50 PM INJECTION MOLD TECHNICIAN Gender Identity Male 06/28/2023 6:50 PM INJECTION MOLD TECHNICIAN Sexual Orientation Straight 06/28/2023 6: 50 PM INJECTION MOLD TECHNICIAN documented as of this encounter Last Filed Vital Signs Vital Sign Reading Time Taken Comments Blood Pressure - - Pulse - - Temperature 36.7 ??C (98 ??F) 11/27/2023 9:43 AM CDT Respiratory Rate - - Oxygen Saturation - - Inhaled Oxygen Concentration - - Weight 101 kg (223 lb 1.7 oz) 11/27/2023 9:43 AM CDT Height - - Body Mass Index - - documented in this encounter Medications at Time of Discharge [...] mouth. 09/10/2013 documented as of this encounter Progress Notes * Nathen Baker M.D. - 11/27/2023 9:30 AM CDT SUBJECTIVE REASON FOR VISIT Evaluation for side effects while receiving radiation treatment for 1. Primary Malignant Neoplasm Of Prostate (HCC) SUPERVISED BY: Nathen Baker M.D. ([id number]) HISTORY OF PRESENT ILLNESS Mr. Vick Lafleur is a 63 y.o. male with a rising PSA following prostatectomy for prostate cancer. This was completed on July 11, 2022. Postoperative PSA on March 13, 2023 was elevated at 0.4 ng/mL, with an increase on June 12, 2023 at 0.56 ng/mL. PSMA PET/MRI demonstrated indeterminate lesion at the vesicourethral anastomosis. He was initiated on androgen deprivation therapy with 50 mg bicalutamide for 21 days and a 7.5 mg leuprolide injection on July 30, 2023. He received a 22.5mg leuprolide injection on August 27, 2023. Patient is now undergoing salvage radiotherapy to theprostate fossa and pelvic lymph nodes. Treatment Course: 1xProsLN Plan ID Fractions Dose / Fraction (cGy) Dose Treated (cGy) Dose Planned (cGy) First Treatment Last Treatment Elapsed Days [id number] 10/21/2023 11/22/2023 32 [id number] 11/25/2023 11/27/2023 2 Treatment Site Summary [id number] 10/21/2023 11/27/2023 37 Course Summary 10/21/2023 11/27/2023 37 Oncology History Primary Malignant Neoplasm Of Prostate (HCC) 11/29/2021 Other 09/08/2021: PSA 6.28 ng/mL 11/29/2021: PSA 6.5 ng/mL Patient evaluated by Dr. Aubrey Stringer, Urology, for elevated PSA. RAUL demonstrated 40 cc prostate without firmness or nodularity, no tenderness or bogginess 01/20/2022 Critical Imaging MR prostate FINDINGS: The prostate measures 4.8 x 4.0 x 3.6 cm. The prostate volume was estimated at 35.4 mL. No suspicious area of restricted diffusion either within the peripheral zone or within a transitionzone. No focal masslike area of reduced T2 signal or suspicious or enhancement. 03/21/2022 Biopsy/Pathology Final diagnosis Left: A. Benign prostatic tissue B. Adenocarcinoma; Santa Maria score 6 (3+3); 20% of the needle core tissue involved by tumor; 1 of 1 core involved C. Adenocarcinoma; Hemal score 6 (3+3); 5% of the needle core tissue involved by tumor; 1 of 1 core involved D. Adenocarcinoma; Hemal score 6 (3+3); 5% of the needle core tissue involved by tumor; 1 of 1 core involved E. Adenocarcinoma; Hemal score 6 (3+3); 20% of the needle core tissue involved by tumor; 1 of 1 core involved F. Benign prostatic tissue Right: G. Benign prostatic tissue H. Benign prostatic tissue I. Adenocarcinoma; Santa Maria score 6 (3+3); 5% of the needle core tissue involved by tumor; 1 of 1 core involved J. Atypical small acinar proliferation K. Adenocarcinoma; Santa [place] score 6 (3+3); 50% of the needle core tissue involved by tumor; 1 of 1 core involved L. Atypical small acinar proliferation 6/12 positive cores 05/02/2022 Critical Imaging Bone scan demonstrated no signs of osseous metastases CT abdomen and pelvis demonstrated mild prostatic enlargement with no convincing evidence for metastatic disease in the abdomen or pelvis 07/11/2022 Surgery and Procedures Robotic assisted laparoscopic prostatectomy performed by Dr. Mal Serrano Final Diagnosis A) PROSTATE AND PERIPROSTATIC ADIPOSE TISSUE, ROBOT ASSISTED PROSTATECTOMY: 1. Adenocarcinoma, characterized by: a. Santa Maria grade: 3 + 4 = 7 b. Grade group: 2 of 5 c. Extent: pT2c. (Tumor confined within prostate, involves both lobes) d. Margins: Positive (limited extent) - Right apical (1 mm), right mid lateral (2 mm) and right posterior (2 mm) - See synoptic staging parameters for details e. Extracapsular extension: Not identified f. Seminal vesicle involvement: Absent g. Angiolymphatic invasion: Not identified h. Perineural invasion: Present 2. Benign periprostatic adipose tissue; no lymph nodes identified 3. See synoptic staging parameters below SYNOPTIC REPORTING SPECIMEN Procedure: Radical prostatectomy Prostate Size: Prostate Weight (Grams): 34 g Prostate Greatest Dimension (Centimeters): 4.6 cm Additional Prostate Dimension (Centimeters): 4.1 cm Additional Prostate Dimension (Centimeters): 3.5 cm TUMOR Histologic Type: Acinar adenocarcinoma Histologic Grade: Grade: Grade group 2 (Hemal Score 3 + 4 = 7) Minor Tertiary Pattern 5 (less than 5%): Not applicable Percentage of Pattern 4: 6 - 10% Intraductal Carcinoma (IDC): Not identified Treatment Effect: No known presurgical therapy TUMOR QUANTITATION: Estimated Percentage of Prostate Involved by Tumor: 11 - 20% Extraprostatic Extension (EPE): Not identified Urinary Bladder Neck Invasion: Not identified Seminal Vesicle Invasion: Not identified Lymphovascular Invasion: Not Identified Perineural Invasion: Present MARGINS Margin Status: Invasive carcinoma present at margin Linear Length of Margin(s) Involved by Carcinoma: Less than 3 mm (limited) Focality of Margin Involvement: Multifocal Margin(s) Involved by Invasive Carcinoma: Right apical Margin(s) Involved by Invasive Carcinoma: Right lateral Margin(s) Involved by Invasive Carcinoma: Right posterior Margin Involvement by Invasive Carcinoma in Area of Extraprostatic Extension (EPE): Not identified Hemal Pattern at Margin(s) Involved by Carcinoma: Pattern 3 REGIONAL LYMPH NODES Regional Lymph Node Status: Not applicable (no regional lymph nodes submitted or found) PATHOLOGIC STAGE CLASSIFICATION (pTNM, AJCC 8th Edition) Primary Tumor (pT): pT2 pN Category: pN not assigned (no nodes submitted or found) ADDITIONAL FINDINGS Additional Findings: High-grade prostatic intraepithelial neoplasia (PIN) 03/13/2023 Other 03/13/2023: PSA 0.4 ng/mL 06/12/2023: PSA 0.56 ng/mL 06/19/[address] Stringer recommended referral to Radiation Oncology to discuss salvage radiation therapy. 06/27/2023 Critical Imaging Bone scan revealed no evidence of metastatic osseous disease CT abdomen and pelvis demonstrated no evidence of metastatic disease 07/11/2023 Critical Imaging PSA 0.45 ng/mL. Testosterone 188 ng/dL PSMA PET/MRI revealed an area indeterminate lesion measuring 1.3 x 2.2 cm in the right prostatectomy bed between the vesicourethral anastomosis in the rectum that had very low level PSMA uptake. There were no metastatic lymph nodes or bone lesions. There was another area of minimal patchy PSMA activity between the right obturator internus and adjacent to the bulbous spongiosis that was indeterminate. 07/30/2023 - Biological/Targeted/Hormone Therapy 07/30/2023: 7.5 mg leuprolide injection 08/27/2023: 22.5 mg leuprolide injection Planned 4-6 months 10/16/2023 - Radiation Therapy Radiation Therapy Treatment Details (Noted on 08/26/2023) Site: Prostate bed Technique: No technique specified Goal: Curative Planned Treatment Start Date: 10/16/2023 The patient was seen and examined today with Dr. Baker. Patient reports to be feeling well overall. Diarrhea is minimal and he takes 1 tablet of Imodium at3 pm and 1 at 5 pm. He also takes Ibuprofen. Patient denies incontinence, hematuria, dysuria or urinary retention. Patient reports mild urinary frequency. Nocturia x 2. PATIENT REPORTED SYMPTOM SCREEN FATIGUE (Scale: 0 = no fatigue; 10 = worst fatigue you can imagine): 1 PAIN (Scale: 0 = no pain; 10 = worst pain you can imagine): 0 OVERALL QUALITY OF LIFE (Scale: 0 = as bad as can be; 10 = as good as can be): 10 OBJECTIVE Temp 36.7 ??C (Temporal) Wt 101 kg PHYSICAL EXAM General: Alert and oriented in no apparent distress. ASSESSMENT / PLAN #1 Stage IIB (pT2, cN0, cM0, PSA 6.5, Grade Group 2) adenocarcinoma of the prostate s/p margin positive prostatectomy on July 11, 2022 #2 Postoperative PSA detectable on March 13, 2023 at 0.4 ng/mL; most recent at 0.56 ng/mL on June 12, 2023 #3 Stress urinary incontinence following prostatectomy #4 Indeterminate lesion at the vesicourethral anastomosis on PET/MRI on July 11, 2023 #5 ADT initiated in July 2023 with 50 mg bicalutamide x21 days and 7.5 mg leuprolide injection on July 30, 2023; 22.5 mg leuprolide injection on August 27, 2023; Leuprolide 7.5 mg on November 19, 2023; no further ADT planned #6 Intensity modulated radiotherapy to the prostate fossa and pelvic lymph nodes initiated on 2023; anticipated completion on December 03, 2023 Patient is tolerating treatment well overall. Radiation related side effects should start to improve in the coming weeks. Patient will stop Ibuprofen with in the next 2 weeks as urination symptoms improve. Dr. Baker will follow up with patient in March 2024. We will check PSA, testosterone at [facility] location in March 2024. He received his last 7.5 mgleuprolide injection at [facility] on November 19, 2023. He will contact us with any questions or concerns. We will continue with radiation treatment as planned. Toxicities reviewed with Dr. Baker today. Signed by: Anni Godwin R.N. 11/27/2023 10:16 AM CDT I saw and evaluated the patient and participated in the burkett portions of the service. I reviewed thedocumentation of Anni Godwin R.N. and agree with the findings and plan. The patient appears well on exam. He is tolerating treatment well with anticipated side effects including grade 1 diarrhea and grade 1 urinary frequency. He will finish treatment as planned next Saturday. He will follow-up with us in March after pre-visit PSA and testosterone labs are drawn at [facility] in [place]. He will contact us in the interim with questions or concerns. He verbalized satisfaction with this plan. Signed by: Nathen Baker M.D. 12/02/2023 6:49 PM CDT [facility] [address] [place] [address] documented in this encounter Miscellaneous Notes * Addendum Note - Emily Cross C.N.ALizzette - 11/27/2023 9:30 AM CDTEncounter addended by: Emily Cross C.NEnoch on: 12/03/2023 7:57 AM Actions taken: Letter saved documented in this encounter Plan of Treatment Upcoming Encounters Date Type Department Care Team (Latest Contact Info) Description 03/30/2024 9:45 AM CDT Clinical Communication Virtual Review in [address] [phone] 04/01/2024 3:30 PM CDT Appointment Department of Radiation Oncology in [place], [place] [address] [place] [phone] Nathen Baker M.D. [address] [place] [address] Scheduled Orders Name Type Priority Associated Diagnoses Order Schedule Management Visit Radiation Oncology Routine Primary Malignant Neoplasm Of Prostate (HCC) Once for 1 Occurrences starting 11/27/2023 until 11/27/2023 PSA (Prostate-Specific Antigen), Diagnostic Lab Routine Rising Prostate Specific Antigen Following Treatment For Malignant Cancer Of Prostate Expected: 03/19/2024 (Approximate), Expires: 11/26/2024 Testosterone, Total by Mass Spectrometry, Serum Lab Routine Rising Prostate Specific Antigen Following Treatment For Malignant Cancer Of Prostate Expected: 03/19/2024 (Approximate), Expires: 11/26/2024 Scheduled Referrals Name Type Priority Associated Diagnoses Orde r Schedule Radiation Oncology office visit (clinic) Outpatient Referral Routine Expected: 03/26/2024 (Approximate), Expires: 11/26/2024 documented as of this encounter Visit Diagnoses Diagnosis Rising Prostate Specific Antigen Following Treatment For Malignant Cancer Of Prostate- Primary Primary Malignant Neoplasm Of Prostate (HCC) documented in this encounter
--- OUTSIDE RECORDS SUMMARY | 2024-02-07 09:14 | XMS_ITS | Encounter Summary ---
Author Organization [facility] Address [address] [place] [id number] Care Team Providers Care Superintendent [employer] Name Role Phone Unavailable Primary Care Provider Unavailabl e Reason for Visit * Radiation Therapy (Routine) - Authorized Specialty Diagnoses / Procedures Referred By Amandeep baez Referred To Contact Diagnoses Primary Malignant Neoplasm Of Prostate (HCC) Procedures Prior Auth Rad Tx [place] IMRT SIMPLE IMRT prostate Nathen Baker M.D. [address] [place] [address] [facility] Referral ID Status Reason Start Date Expiration Date V isits Requested Visits Authorized [id number] Authorized 10/16/2023 07/14/2024 36 36 Encounter Details Date Type Department Care Team (Latest Contact Info) Description 12/03/2023 9:06 AM CDT - 12/03/2023 11:59 PM CDT Hospital Encounter Department of Radiation Oncology in [place], [place] [address] [place] [phone] Nathen Baker M.D. [address] [place] [phone] Discharge Disposition: Home or Self Care Social History Tobacco Use Types Packs/Day Years Used Date Smoking Tobacco: Never Smokeless Tobacco: Never Alcohol Use Standard Drinks/Week Comments Yes 0 (1 standard drink = 0.6 oz pur e alcohol) rarely [facility] Utilities Answer Date Recorded In the past 12 months has e [employer], [employer] oil, or water [employer] threatened to shut off services in your [...] your living situation today? I have a [facility] place to live 06/28/2023 Sex and Gender Information Value Date Recorded Sex Assigned at Male 06/28/2023 6:50 PM DIRECTOR LABOR STANDARDS Gender Identity Male 06/28/2023 6:50 PM DIRECTOR LABOR STANDARDS Sexual Orientation Straight 06/28/2023 6: 50 PM DIRECTOR LABOR STANDARDS documented as of this encounter Medications at [...] AM CDT Clinical Communication Virtual Review in [place], [place] [address] [place] [phone] 04/01/2024 3:30 PM CDT Appointment Department of Radiation Oncology in [address] [phone] Nathen Baker M.D. [address] [place] [phone] documented as of this encounter Visit Diagnoses Not on filedocumented in this encounter
--- OUTSIDE RECORDS SUMMARY | 2024-02-07 09:14 | XMS_ITS ---
Author Organization [facility] Address [address] [place] [address] Care Team Providers Care Nitrocellulose Maker Name Role Phone Unavailable Unavailable Unavailable Surgery Details Not on file Complications Check Surgery Details section. Procedure Estimated Blood Loss Check Surgery Details section. Procedure Findings Check Surgery Details section. Procedure Specimens Taken Check Surgery Details section.
--- OUTSIDE RECORDS SUMMARY | 2024-02-07 09:15 | XMS_ITS | Encounter Summary ---
Author Organization [facility] Address [address] [place] [address] Care Team Providers Care Career Resource Technician Name Role Phone Unavailable Primary Care Provider Unavailabl e Reason for Referral * Radiation Therapy (Routine) - Authorized Specialty Diagnoses / Procedures Referred By Amandeep baez Referred To Contact Diagnoses Primary Malignant Neoplasm Of Prostate (HCC) Procedures Management Visit Nathen Baker M.D. [address] [place] [address] [facility] Region Referral ID Status Reason Start Date Expiration Date V isits Requested Visits Authorized [id number] Authorized 08/26/2023 08/25/2024 10 10 Reason for Visit * Radiation Therapy (Routine) - Authorized Specialty Diagnoses / Procedures Referred By Amandeep baez Referred To Contact Diagnoses Primary Malignant Neoplasm Of Prostate (HCC) Procedures Management Visit Nathen Baker M.D. [address] [place] [address] [facility] Region Referral ID Status Reason Start Date Expiration Date V isits Requested Visits Authorized [id number] Authorized 08/26/2023 08/25/2024 10 10 Encounter Details Date Type Department Care Team (Latest Contact Info) Description 11/20/2023 9:01 AM CDT - 11/22/2023 10:02 PM CDT Hospital Encounter Department of Radiation Oncology in [place], [place] [address] [place] [phone] Nathen Baker M.D. [address] [place] [address] Primary Malignant Neoplasm Of Prostate (HCC) Social History Tobacco Use Types Packs/Day Years Used Date Smoking Tobacco: Never Smokeless Tobacco: Never Alcohol Use Standard Drinks/Week Comments Yes 0 (1 standard drink = 0.6 oz pur e alcohol) rarely [facility] Utilities Answer Date Recorded In the past 12 months has th e electric, gas, oil, or water company [...] your living situation today? I have a [facility] place to live 06/28/2023 Sex and Gender Information Value Date Recorded Sex Assigned at Male 06/28/2023 6:50 PM GLIDING PILOT INSTRUCTOR Gender Identity Male 06/28/2023 6:50 PM GLIDING PILOT INSTRUCTOR Sexual Orientation Straight 06/28/2023 6: 50 PM GLIDING PILOT INSTRUCTOR documented as of this encounter Last Filed Vital Signs Vital Sign Reading Time Taken Comments Blood Pressure - - Pulse - - Temperature 36.6 ??C (97.9 ??F) 11/20/2023 9:29 AM CD T Respiratory Rate - - Oxygen Saturation - - Inhaled Oxygen Concentration - - Weight 98.6 kg (217 lb 6 oz) 11/20/2023 9:29 AM CDT Height - - Body Mass [...] Progress Notes * Nathen Baker M.D. - 11/20/2023 9:30 AM CDT SUBJECTIVE REASON FOR VISIT Evaluation for side effects while receiving radiation treatment for 1. Primary Malignant Neoplasm Of Prostate (HCC) SUPERVISED BY: Nathen Baker M.D. ([id number]) HISTORY OF PRESENT ILLNESS Mr. Vick Lafleur [...] (cGy) First Treatment Last Treatment Elapsed Days [id number] 215 [id number] 10/21/2023 11/19/2023 29 Course Summary 10/21/2023 11/19/2023 The patient was seen and examined today with Dr. Baker. Patient reports to be feeling well overall. He started taking Ibuprofen 200 mg with his evening meal and that has helped with nocturia. He reports nocturia x 2-3 which is his baseline. He continues to take 1/2 tablet of Imodium for diarrhea management. Patient denies hematuria, rectal bleeding, dysuria. PATIENT REPORTED SYMPTOM SCREEN FATIGUE (Scale: 0 = no fatigue; 10 = worst fatigue you can imagine): 1 PAIN (Scale: 0 = no pain; 10 = worst pain you can imagine): 0 OVERALL QUALITY OF LIFE (Scale: 0 = as bad as can be; 10 = as good as can be): 10 OBJECTIVE There were no vitals taken for this visit. PHYSICAL EXAM General: Alert and oriented in [...] 2023; Leuprolide 7.5 mg on November 19, 2023-No further ADT planned. #6 Intensity modulated radiotherapy to the prostate fossa and pelvic lymph nodes initiated on 2023; anticipated completion on December 03, 2023 Patient is tolerating treatment well overall. He can continue to take Imodium for diarrhea management. He can continue to take Ibuprofen to help manage nocturia. He received his last 7.5 [address] injection at [facility] on November 19, 2023. He will contact us with any questions or concerns. We will continue with radiation treatment as planned. Signed by: Megha Alfred R.N. 11/20/2023 9:12 AM CDT I saw and evaluated the patient and participated in the burkett portions of the service. I reviewed thedocumentation of Megha Alfred R.N. and agree with the findings and plan. The patient appears well on exam. He is tolerating treatment well. He will continue with treatment as planned. Signed by: Nathen Baker M.D. 11/22/2023 10:02 PM CDT [facility] [address] [place] [phone] documented in this encounter Plan of Treatment Upcoming Encounters Date Type Department Care Team (Latest Contact Info) Description 03/30/2024 9:45 AM CDT Clinical Communication Virtual Review in [place], [place] [address] [place] [address] 04/01/2024 3:30 PM CDT Appointment Department of Radiation Oncology in [address] [phone] Nathen Baker M.D. [address] [place] [phone] Scheduled Orders Name Type Priority Associated Diagnoses Orde r Schedule Management Visit Radiation Oncology Routine Primary Malignant Neoplasm Of Prostate (HCC) Once for 1 Occurrences starting 11/20/2023 until 11/20/2023 documented as of this encounter Visit Diagnoses Diagnosis Primary Malignant Neoplasm Of Prostate (HCC) documented in this encounter
--- OUTSIDE RECORDS SUMMARY | 2024-02-07 09:15 | XMS_ITS | Encounter Summary ---
Author Organization [facility] Address [address] [place] [address] Care Team Providers Care Sheet Metal Engineer Name Role Phone Unavailable Primary Care Provider Unavailabl e Reason for Visit * Radiation Therapy (Routine) - Authorized Specialty Diagnoses / Procedures Referred By Amandeep baez Referred To Contact Diagnoses Primary Malignant Neoplasm Of Prostate (HCC) Procedures Prior Auth Rad Tx [place] IMRT SIMPLE IMRT prostate Nathen Baker M.D. 200 [place] [address] [facility] Referral ID Status Reason Start Date Expiration Date V isits Requested Visits Authorized [id number] Authorized 10/16/2023 07/14/2024 36 36 Encounter Details Date Type Department Care Team (Latest Contact Info) Description 11/12/2023 9:02 AM CDT - 11/12/2023 11:59 PM CDT Hospital Encounter Department of Radiation Oncology in [place], [place] [address] [place] [phone] Nathen Baker M.D. [address] [place] [phone] Discharge Disposition: Home or Self Care Social History Tobacco Use Types Packs/Day Years Used Date Smoking Tobacco: Never Smokeless Tobacco: Never Alcohol Use Standard Drinks/Week Comments Yes 0 (1 standard drink = 0.6 oz pur e alcohol) rarely [facility] Utilities Answer Date Recorded In the past 12 months has e [employer], [employer], oil, or water [employer] threatened to shut off services in your [...] your living situation today? I have a [facility] place to live 06/28/2023 Sex and Gender Information Value Date Recorded Sex Assigned at Male 06/28/2023 6:50 PM AUTO PARKER Gender Identity Male 06/28/2023 6:50 PM AUTO PARKER Sexual Orientation Straight 06/28/2023 6: 50 PM AUTO PARKER documented as of this encounter Medications at [...] AM CDT Clinical Communication Virtual Review in [place], [place] 200 [place] [address] 04/01/2024 3:30 PM CDT Appointment Department of Radiation Oncology in [address] [phone] Nathen Baker M.D. [address] [place] [phone] documented as of this encounter Visit Diagnoses Not on filedocumented in this encounter
--- OUTSIDE RECORDS SUMMARY | 2024-02-07 09:15 | XMS_ITS | Encounter Summary ---
Author Organization [facility] Address [address] [place] [address] Care Team Providers Care Diamond Wheel Molder Name Role Phone Unavailable Primary Care Provider Unavailabl e Reason for Visit * Radiation Therapy (Routine) - Authorized Specialty Diagnoses / Procedures Referred By Amandeep baez Referred To Contact Diagnoses Primary Malignant Neoplasm Of Prostate (HCC) Procedures Prior Auth Rad Tx [place] IMRT SIMPLE IMRT prostate Nathen Baker M.D. 200 [place] [address] [facility] Referral ID Status Reason Start Date Expiration Date V isits Requested Visits Authorized [id number] Authorized 10/16/2023 07/14/2024 36 36 Encounter Details Date Type Department Care Team (Latest Contact Info) Description 11/27/2023 9:11 AM CDT Hospital Encounter Department of Radiation Oncology in [place], [place] [address] [place] [address] Nathen Baker M.D. [address] [place] [phone] Discharge Disposition: Home or Self Care Social History Tobacco Use Types Packs/Day Years Used Date Smoking Tobacco: Never Smokeless Tobacco: Never Alcohol Use Standard Drinks/Week Comments Yes 0 (1 standard drink = 0.6 oz pur e alcohol) rarely C Utilities Answer Date Recorded In the past 12 months has [employer], oil, or [employer] threatened to shut off services in your [...] your living situation today? I have a [facility] place to live 06/28/2023 Sex and Gender Information Value Date Recorded Sex Assigned at Male 06/28/2023 6:50 PM ROVING CARRIER Gender Identity Male 06/28/2023 6:50 PM ROVING CARRIER Sexual Orientation Straight 06/28/2023 6: 50 PM ROVING CARRIER documented as of this encounter Medications at [...] AM CDT Clinical Communication Virtual Review in [place], [place] 200 [place] [address] 04/01/2024 3:30 PM CDT Appointment Department of Radiation Oncology in [address] [phone] Nathen Baker M.D. [address] [place] [phone] documented as of this encounter Visit Diagnoses Not on filedocumented in this encounter
--- OUTSIDE RECORDS SUMMARY | 2024-02-07 09:15 | XMS_ITS | Encounter Summary ---
Author Organization [facility] Address [address] [place] [address] Care Team Providers Care Customs Compliance Specialist Name Role Phone Unavailable Primary Care Provider Unavailabl e Reason for Visit * Radiation Therapy (Routine) - Authorized Specialty Diagnoses / Procedures Referred By Amandeep baez Referred To Contact Diagnoses Primary Malignant Neoplasm Of Prostate (HCC) Procedures Prior Auth Rad Tx [place] IMRT SIMPLE IMRT prostate Nathen Baker M.D. 200 [place] [address] [facility] Referral ID Status Reason Start Date Expiration Date V isits Requested Visits Authorized [id number] Authorized 10/16/2023 07/14/2024 36 36 Encounter Details Date Type Department Care Team (Latest Contact Info) Description 11/11/2023 9:03 AM CDT - 11/11/2023 11:59 PM CDT Hospital Encounter Department of Radiation Oncology in [place], [place] [address] [place] [phone] Nathen Baker M.D. [address] [place] [phone] Discharge Disposition: Home or Self Care Social History Tobacco Use Types Packs/Day Years Used Date Smoking Tobacco: Never Smokeless Tobacco: Never Alcohol Use Standard Drinks/Week Comments Yes 0 (1 standard drink = 0.6 oz pur e alcohol) rarely [facility] Utilities Answer Date Recorded In the past 12 months has e [employer], [employer], oil, or water [employer] threatened to shut off services in your [...] your living situation today? I have a [facility] place to live 06/28/2023 Sex and Gender Information Value Date Recorded Sex Assigned at Male 06/28/2023 6:50 PM TETRYL BOILING TUB OPERATOR Gender Identity Male 06/28/2023 6:50 PM TETRYL BOILING TUB OPERATOR Sexual Orientation Straight 06/28/2023 6: 50 PM TETRYL BOILING TUB OPERATOR documented as of this encounter Medications at [...] AM CDT Clinical Communication Virtual Review in [place], [place] 200 [place] [address] 04/01/2024 3:30 PM CDT Appointment Department of Radiation Oncology in [address] [phone] Nathen Baker M.D. [address] [place] [phone] documented as of this encounter Visit Diagnoses Not on filedocumented in this encounter
--- OUTSIDE RECORDS SUMMARY | 2024-02-07 09:15 | XMS_ITS | Encounter Summary ---
Author Organization [facility] Address [address] [place] [address] Care Team Providers Care Plumbing Hardware Assembler Name Role Phone Unavailable Primary Care Provider Unavailabl e Reason for Visit * Radiation Therapy (Routine) - Authorized Specialty Diagnoses / Procedures Referred By Amandeep baez Referred To Contact Diagnoses Primary Malignant Neoplasm Of Prostate (HCC) Procedures Prior Auth Rad Tx [place] IMRT SIMPLE IMRT prostate Nathen Baker M.D. 200 [place] [address] [facility] Referral ID Status Reason Start Date Expiration Date V isits Requested Visits Authorized [id number] Authorized 10/16/2023 07/14/2024 36 36 Encounter Details Date Type Department Care Team (Latest Contact Info) Description 11/19/2023 9:03 AM CDT - 11/19/2023 11:59 PM CDT Hospital Encounter Department of Radiation Oncology in [place], [place] [address] [place] [phone] Nathen Baker M.D. [address] [place] [phone] Discharge Disposition: Home or Self Care Social History Tobacco Use Types Packs/Day Years Used Date Smoking Tobacco: Never Smokeless Tobacco: Never Alcohol Use Standard Drinks/Week Comments Yes 0 (1 standard drink = 0.6 oz pur e alcohol) rarely [facility] Utilities Answer Date Recorded In the past 12 months has e [employer], [employer], oil, or water [employer] threatened to shut off services in your [...] situation today? I have a [facility] place to live 06/28/2023 Sex and Gender Information Value Date Recorded Sex Assigned at Male 06/28/2023 6:50 PM COMMISSION SALES ASSOCIATE Gender Identity Male 06/28/2023 6:50 PM COMMISSION SALES ASSOCIATE Sexual Orientation Straight 06/28/2023 6: 50 PM COMMISSION SALES ASSOCIATE documented as of this encounter Medications at [...] AM CDT Clinical Communication Virtual Review in [place], [place] 200 [place] [address] 04/01/2024 3:30 PM CDT Appointment Department of Radiation Oncology in [address] [phone] Nathen Baker M.D. [address] [place] [phone] documented as of this encounter Visit Diagnoses Not on filedocumented in this encounter
--- OUTSIDE RECORDS SUMMARY | 2024-02-07 09:15 | XMS_ITS | Encounter Summary ---
Author Organization [facility] Address [address] [place] [address] Care Team Providers Care Outreach Counselor Name Role Phone Unavailable Primary Care Provider Unavailabl e Reason for Visit * Radiation Therapy (Routine) - Authorized Specialty Diagnoses / Procedures Referred By Amandeep baez Referred To Contact Diagnoses Primary Malignant Neoplasm Of Prostate (HCC) Procedures Prior Auth Rad Tx [place] IMRT SIMPLE IMRT prostate Nathen Baker M.D. 200 [place] [address] [facility] Referral ID Status Reason Start Date Expiration Date V isits Requested Visits Authorized [id number] Authorized 10/16/2023 07/14/2024 36 36 Encounter Details Date Type Department Care Team (Latest Contact Info) Description 11/28/2023 9:05 AM CDT - 11/28/2023 11:59 PM CDT Hospital Encounter Department of Radiation Oncology in [place], [place] [address] [place] [phone] aNthen Baker M.D. [address] [place] [phone] Discharge Disposition: Home or Self Care Social History Tobacco Use Types Packs/Day Years Used Date Smoking Tobacco: Never Smokeless Tobacco: Never Alcohol Use Standard Drinks/Week Comments Yes 0 (1 standard drink = 0.6 oz pur e alcohol) rarely [place] Utilities Answer Date Recorded In the past 12 months has e [employer], [employer], oil, or water [employer] threatened to shut off services in your [...] your living situation today? I have a [facility] place to live 06/28/2023 Sex and Gender Information Value Date Recorded Sex Assigned at Male 06/28/2023 6:50 PM INCOMING FREIGHT CLERK Gender Identity Male 06/28/2023 6:50 PM INCOMING FREIGHT CLERK Sexual Orientation Straight 06/28/2023 6: 50 PM INCOMING FREIGHT CLERK documented as of this encounter Medications at [...] AM CDT Clinical Communication Virtual Review in [place], [place] 200 [place] [address] 04/01/2024 3:30 PM CDT Appointment Department of Radiation Oncology in [address] [phone] Nathen Baker M.D. [address] [place] [phone] documented as of this encounter Visit Diagnoses Not on filedocumented in this encounter
--- OUTSIDE RECORDS SUMMARY | 2024-02-07 09:15 | XMS_ITS | Encounter Summary ---
Author Organization [facility] Address [address] [place] [address] Care Team Providers Care Composite Engineer Name Role Phone Unavailable Primary Care Provider Unavailabl e Reason for Visit * Radiation Therapy (Routine) - Authorized Specialty Diagnoses / Procedures Referred By Amandeep baez Referred To Contact Diagnoses Primary Malignant Neoplasm Of Prostate (HCC) Procedures Prior Auth Rad Tx [place] IMRT SIMPLE IMRT prostate Nathen Baker M.D. 200 [place] [address] [facility] Referral ID Status Reason Start Date Expiration Date V isits Requested Visits Authorized [id number] Authorized 10/16/2023 07/14/2024 36 36 Encounter Details Date Type Department Care Team (Latest Contact Info) Description 11/15/2023 9:02 AM CDT - 11/15/2023 11:59 PM CDT Hospital Encounter Department of Radiation Oncology in [place], [place] [address] [place] [phone] Nathen Baker M.D. [address] [place] [phone] Discharge Disposition: Home or Self Care Social History Tobacco Use Types Packs/Day Years Used Date Smoking Tobacco: Never Smokeless Tobacco: Never Alcohol Use Standard Drinks/Week Comments Yes 0 (1 standard drink = 0.6 oz pur e alcohol) rarely [facility] Utilities Answer Date Recorded In the past 12 months has e [employer], [employer], oil, or water [employer] threatened to shut off services in your [...] your living situation today? I have a [facility] place to live 06/28/2023 Sex and Gender Information Value Date Recorded Sex Assigned at Male 06/28/2023 6:50 PM LEATHER HEEL BREASTER Gender Identity Male 06/28/2023 6:50 PM LEATHER HEEL BREASTER Sexual Orientation Straight 06/28/2023 6: 50 PM LEATHER HEEL BREASTER documented as of this encounter Medications at [...] AM CDT Clinical Communication Virtual Review in [place], [place] 200 [place] [address] 04/01/2024 3:30 PM CDT Appointment Department of Radiation Oncology in [address] [phone] Nathen Baker M.D. [address] [place] [phone] documented as of this encounter Visit Diagnoses Not on filedocumented in this encounter
--- OUTSIDE RECORDS SUMMARY | 2024-02-07 09:15 | XMS_ITS | Encounter Summary ---
Author Organization [facility] Address [address] [place] [address] Care Team Providers Care Urban Anthropologist Name Role Phone Unavailable Primary Care Provider Unavailabl e Reason for Visit * Radiation Therapy (Routine) - Authorized Specialty Diagnoses / Procedures Referred By Amandeep baez Referred To Contact Diagnoses Primary Malignant Neoplasm Of Prostate (HCC) Procedures Prior Auth Rad Tx [place] IMRT SIMPLE IMRT prostate Nathen Baker M.D. 200 [place] [address] [facility] Referral ID Status Reason Start Date Expiration Date V isits Requested Visits Authorized [id number] Authorized 10/16/2023 07/14/2024 36 36 Encounter Details Date Type Department Care Team (Latest Contact Info) Description 11/18/2023 9:01 AM CDT - 11/18/2023 11:59 PM CDT Hospital Encounter Department of Radiation Oncology in [place], [place] [address] [place] [phone] Nathen Baker M.D. [address] [place] [phone] Discharge Disposition: Home or Self Care Social History Tobacco Use Types Packs/Day Years Used Date Smoking Tobacco: Never Smokeless Tobacco: Never Alcohol Use Standard Drinks/Week Comments Yes 0 (1 standard drink = 0.6 oz pur e alcohol) rarely [facility] Utilities Answer Date Recorded In the past 12 months has e [employer], [employer], oil, or water [employer] threatened to shut off services in your [...] your living situation today? I have a [facility] place to live 06/28/2023 Sex and Gender Information Value Date Recorded Sex Assigned at Male 06/28/2023 6:50 PM DUAL HOSE CEMENTER Gender Identity Male 06/28/2023 6:50 PM DUAL HOSE CEMENTER Sexual Orientation Straight 06/28/2023 6: 50 PM DUAL HOSE CEMENTER documented as of this encounter Medications at [...] AM CDT Clinical Communication Virtual Review in [place], [place] 200 [place] [address] 04/01/2024 3:30 PM CDT Appointment Department of Radiation Oncology in [address] [phone] Nathen Baker M.D. [address] [place] [phone] documented as of this encounter Visit Diagnoses Not on filedocumented in this encounter
--- OUTSIDE RECORDS SUMMARY | 2024-02-07 09:15 | XMS_ITS | Encounter Summary ---
Author Organization [facility] Address [address] [place] [address] Care Team Providers Care Grinder Name Role Phone Unavailable Primary Care Provider Unavailabl e Reason for Visit * Radiation Therapy (Routine) - Authorized Specialty Diagnoses / Procedures Referred By Amandeep baez Referred To Contact Diagnoses Primary Malignant Neoplasm Of Prostate (HCC) Procedures Prior Auth Rad Tx [place] IMRT SIMPLE IMRT prostate Nathen Baker M.D. 200 [place] [address] [facility] Referral ID Status Reason Start Date Expiration Date V isits Requested Visits Authorized [id number] Authorized 10/16/2023 07/14/2024 36 36 Encounter Details Date Type Department Care Team (Latest Contact Info) Description 11/14/2023 9:02 AM CDT - 11/14/2023 11:59 PM CDT Hospital Encounter Department of Radiation Oncology in [place], [place] [address] [place] [phone] Nathen Baker M.D. [address] [place] [phone] Discharge Disposition: Home or Self Care Social History Tobacco Use Types Packs/Day Years Used Date Smoking Tobacco: Never Smokeless Tobacco: Never Alcohol Use Standard Drinks/Week Comments Yes 0 (1 standard drink = 0.6 oz pur e alcohol) rarely [facility] Utilities Answer Date Recorded In the past 12 months has e [employer], [employer], oil, or water [employer] threatened to shut off services in your [...] your living situation today? I have a [facility] place to live 06/28/2023 Sex and Gender Information Value Date Recorded Sex Assigned at Male 06/28/2023 6:50 PM DIRECTOR DIVERSITY Gender Identity Male 06/28/2023 6:50 PM DIRECTOR DIVERSITY Sexual Orientation Straight 06/28/2023 6: 50 PM DIRECTOR DIVERSITY documented as of this encounter Medications at [...] AM CDT Clinical Communication Virtual Review in [place], [place] 200 [place] [address] 04/01/2024 3:30 PM CDT Appointment Department of Radiation Oncology in [address] [phone] Nathen Baker M.D. [address] [place] [phone] documented as of this encounter Visit Diagnoses Not on filedocumented in this encounter
--- OUTSIDE RECORDS SUMMARY | 2024-02-07 09:15 | XMS_ITS | Encounter Summary ---
Author Organization [facility] Address [address] [place] [address] Care Team Providers Care Cementer Machine Applicator Name Role Phone Unavailable Primary Care Provider Unavailabl e Reason for Referral * Radiation Therapy (Routine) - Authorized Specialty Diagnoses / Procedures Referred By Amandeep baez Referred To Contact Diagnoses Primary Malignant Neoplasm Of Prostate (HCC) Procedures Management Visit Nathen Baker M.D. 200 [place] [address] [facility] Region Referral ID Status Reason Start Date Expiration Date V isits Requested Visits Authorized [id number] Authorized 08/26/2023 08/25/2024 10 10 Reason for Visit * Radiation Therapy (Routine) - Authorized Specialty Diagnoses / Procedures Referred By Amandeep baez Referred To Contact Diagnoses Primary Malignant Neoplasm Of Prostate (HCC) Procedures Management Visit Nathen Baker M.D. 200 [place] [address] [facility] Region Referral ID Status Reason Start Date Expiration Date V isits Requested Visits Authorized [id number] Authorized 08/26/2023 08/25/2024 10 10 Encounter Details Date Type Department Care Team (Latest Contact Info) Description 11/06/2023 9:03 AM CDT - 11/10/2023 1:15 PM CDT Hospital Encounter Department of Radiation Oncology in [place], [place] [address] [place] [phone] Nathen Baker M.D. [address] [place] [address] Primary Malignant Neoplasm Of Prostate (HCC) Social History Tobacco Use Types Packs/Day Years Used Date Smoking Tobacco: Never Smokeless Tobacco: Never Alcohol Use Standard Drinks/Week Comments Yes 0 (1 standard drink = 0.6 oz pur e alcohol) rarely [facility] Utilities Answer Date Recorded In [...] Sex Assigned at Male 06/28/2023 6:50 PM GARAGE LABORER Gender Identity Male 06/28/2023 6:50 PM GARAGE LABORER Sexual Orientation Straight 06/28/2023 6: 50 PM GARAGE LABORER documented as of this encounter Last Filed Vital Signs Vital Sign Reading Time Taken Comments Blood Pressure - - Pulse - - Temperature 36.8 ??C (98.2 ??F) 11/06/2023 9:47 AM CD T Respiratory Rate - - Oxygen Saturation - - Inhaled Oxygen Concentration - - Weight 98.3 kg (216 lb 11.4 oz) 11/06/2023 9:47 AM CDT Height - - Body Mass [...] Progress Notes * Nathen Baker M.D. - 11/06/2023 9:30 AM CDT SUBJECTIVE REASON FOR VISIT Evaluation for side effects while receiving radiation treatment for 1. Primary Malignant Neoplasm Of Prostate (HCC) SUPERVISED BY: Nathen Baker M.D. ([id number]) HISTORY OF PRESENT ILLNESS Mr. Vick Lafleur [...] (cGy) First Treatment Last Treatment Elapsed Days [id number] 10/21/2023 11/06/2023 16 Course Summary 10/21/2023 11/06/2023 16 The patient was seen and examined today with Dr. Baker. Patient reports that he has started to experience small, frequent episodes of diarrhea that happen each time he urinates. He has been taking 1/2 tablet of Imodium daily. He does feel like the Imodiumis helpful. The patient denies dysuria, hematuria or rectal bleeding. Baseline nocturia of 2-3 has not changed in nature. PATIENT REPORTED SYMPTOM SCREEN FATIGUE (Scale: 0 = no fatigue; 10 = worst fatigue you can imagine): 2 PAIN (Scale: 0 = no pain; 10 = worst pain you can imagine): 0 OVERALL QUALITY OF LIFE (Scale: 0 = as bad as can be; 10 = as good as can be): 10 OBJECTIVE Temp 36.8 ??C (Temporal) Wt 98.3 kg PHYSICAL EXAM General: Alert and oriented [...] 27, 2023; Leuprolide 7.5 mg on November 20, 2023-No further ADT planned. #6 Intensity modulated radiotherapy to the prostate fossa and pelvic lymph nodes initiated on 2023; anticipated completion on December 03, 2023 The patient is tolerating radiation treatment well overall. Discussed with patient that if needed he could increase the amount of Imodium he is taking to help better control his diarrhea. Reviewed low fiber dietary modifications that he could make to also help with diarrhea management. He will contact us with any questions or concerns. We will continue with radiation treatment as planned. Signed by: Megha Alfred R.N. 11/06/2023 3:55 PM CDT I saw and evaluated the patient and participated in the burkett portions of the service. I reviewed thedocumentation of Megha Alfred R.N. and agree with the findings and plan. The patient appears well on exam. He is tolerating treatment well. He will continue with treatment as planned. Signed by: Nathen Baker M.D. 11/10/2023 1:14 PM CDT [facility] [address] [place] [address] documented in this encounter Plan of Treatment Upcoming Encounters Date Type Department Care Team (Latest Contact Info) Description 03/30/2024 9:45 AM CDT Clinical Communication Virtual Review in [place], [place] 200 [place] [address] 04/01/2024 3:30 PM CDT Appointment Department of Radiation Oncology in [address] [phone] Nathen Baker M.D. [address] [place] [phone] Scheduled Orders Name Type Priority Associated Diagnoses Orde r Schedule Management Visit Radiation Oncology Routine Primary Malignant Neoplasm Of Prostate (HCC) Once for 1 Occurrences starting 11/06/2023 until 11/06/2023 documented as of this encounter Visit Diagnoses Diagnosis Primary Malignant Neoplasm Of Prostate (HCC) documented in this encounter
--- OUTSIDE RECORDS SUMMARY | 2024-02-07 09:15 | XMS_ITS | Encounter Summary ---
Author Organization [facility] Address [address] [place] [address] Care Team Providers Care Glass Driller Name Role Phone Unavailable Primary Care Provider Unavailabl e Reason for Visit * Radiation Therapy (Routine) - Authorized Specialty Diagnoses / Procedures Referred By Amandeep baez Referred To Contact Diagnoses Primary Malignant Neoplasm Of Prostate (HCC) Procedures Prior Auth Rad Tx CT IMRT SIMPLE IMRT prostate Nathen Baker M.D. 200 [place] [address] [facility] Referral ID Status Reason Start Date Expiration Date V isits Requested Visits Authorized [id number] Authorized 10/16/2023 07/14/2024 36 36 Encounter Details Date Type Department Care Team (Latest Contact Info) Description 11/20/2023 9:01 AM CDT - 11/20/2023 11:59 PM CDT Hospital Encounter Department of Radiation Oncology in [place], [place] [address] [place] [phone] Nathen Baker M.D. [address] [place] [address] [phone] Discharge Disposition: Home or Self Care Social History Tobacco Use Types Packs/Day Years Used Date Smoking Tobacco: Never Smokeless Tobacco: Never Alcohol Use Standard Drinks/Week Comments Yes 0 (1 standard drink = 0.6 oz pur e alcohol) rarely [facility] Utilities Answer Date Recorded In the past 12 months has e [employer], [employer], oil, or water [employer] threatened to shut off services in your [...] your living situation today? I have a [facility] place to live 06/28/2023 Sex and Gender Information Value Date Recorded Sex Assigned at Male 06/28/2023 6:50 PM FIELD PIPE LINES SUPERVISOR Gender Identity Male 06/28/2023 6:50 PM FIELD PIPE LINES SUPERVISOR Sexual Orientation Straight 06/28/2023 6: 50 PM FIELD PIPE LINES SUPERVISOR documented as of this encounter Medications at [...] AM CDT Clinical Communication Virtual Review in [place], [place] 200 [place] [address] 04/01/2024 3:30 PM CDT Appointment Department of Radiation Oncology in [address] [phone] Nathen Baker M.D. [address] [place] [phone] documented as of this encounter Visit Diagnoses Not on filedocumented in this encounter
--- OUTSIDE RECORDS SUMMARY | 2024-02-07 09:15 | XMS_ITS | Encounter Summary ---
Author Organization [facility] Address [address] [place] [address] Care Team Providers Care Gauger Chief Delivery Name Role Phone Unavailable Primary Care Provider Unavailabl e Reason for Visit * Radiation Therapy (Routine) - Authorized Specialty Diagnoses / Procedures Referred By Amandeep baez Referred To Contact Diagnoses Primary Malignant Neoplasm Of Prostate (HCC) Procedures Prior Auth Rad Tx [place] IMRT SIMPLE IMRT prostate Nathen Baker M.D. 200 [place] [address] [facility] Referral ID Status Reason Start Date Expiration Date V isits Requested Visits Authorized [id number] Authorized 10/16/2023 07/14/2024 36 36 Encounter Details Date Type Department Care Team (Latest Contact Info) Description 11/25/2023 9:04 AM CDT - 11/25/2023 11:59 PM CDT Hospital Encounter Department of Radiation Oncology in [place], [place] [address] [place] [address] Nathen Baker M.D. [address] [place] [address] [phone] Discharge Disposition: Home or Self Care Social History Tobacco Use Types Packs/Day Years Used Date Smoking Tobacco: Never Smokeless Tobacco: Never Alcohol Use Standard Drinks/Week Comments Yes 0 (1 standard drink = 0.6 oz pur e alcohol) rarely [facility] Utilities Answer Date Recorded In the past 12 months has e [employer], [employer], oil, or water [employer] threatened to shut off services in your [...] your living situation today? I have a [facility] place to live 06/28/2023 Sex and Gender Information Value Date Recorded Sex Assigned at Male 06/28/2023 6:50 PM TRASH COLLECTOR Gender Identity Male 06/28/2023 6:50 PM TRASH COLLECTOR Sexual Orientation Straight 06/28/2023 6: 50 PM TRASH COLLECTOR documented as of this encounter Medications at [...] AM CDT Clinical Communication Virtual Review in [place], [place] 200 [place] [address] 04/01/2024 3:30 PM CDT Appointment Department of Radiation Oncology in [address] [phone] Nathen Baker M.D. [address] [place] [phone] documented as of this encounter Visit Diagnoses Not on filedocumented in this encounter
--- OUTSIDE RECORDS SUMMARY | 2024-02-07 09:15 | XMS_ITS | Encounter Summary ---
Author Organization [facility] Address [address] [place] [address] Care Team Providers Care Therapy Coordinator Name Role Phone Unavailable Primary Care Provider Unavailabl e Reason for Visit * Radiation Therapy (Routine) - Authorized Specialty Diagnoses / Procedures Referred By Amandeep baez Referred To Contact Diagnoses Primary Malignant Neoplasm Of Prostate (HCC) Procedures Prior Auth Rad Tx [place] IMRT SIMPLE IMRT prostate Nathen Baker M.D. 200 [place] [address] [facility] Referral ID Status Reason Start Date Expiration Date V isits Requested Visits Authorized [id number] Authorized 10/16/2023 07/14/2024 36 36 Encounter Details Date Type Department Care Team (Latest Contact Info) Description 11/26/2023 9:05 AM CDT - 11/26/2023 11:59 PM CDT Hospital Encounter Department of Radiation Oncology in [place], [place] [address] [place] [phone] Nathen Baker M.D. [address] [place] [address] [phone] Discharge Disposition: Home or Self Care Social History Tobacco Use Types Packs/Day Years Used Date Smoking Tobacco: Never Smokeless Tobacco: Never Alcohol Use Standard Drinks/Week Comments Yes 0 (1 standard drink = 0.6 oz pur e alcohol) rarely [facility] Utilities Answer Date Recorded In the past 12 months has e [email or web address], [employer], oil, or water [employer] threatened to shut off services in your [...] your living situation today? I have a [facility] place to live 06/28/2023 Sex and Gender Information Value Date Recorded Sex Assigned at Male 06/28/2023 6:50 PM WIRE STRETCHER Gender Identity Male 06/28/2023 6:50 PM WIRE STRETCHER Sexual Orientation Straight 06/28/2023 6: 50 PM WIRE STRETCHER documented as of this encounter Medications at [...] AM CDT Clinical Communication Virtual Review in [place], [place] 200 [place] [address] 04/01/2024 3:30 PM CDT Appointment Department of Radiation Oncology in [address] [phone] Nathen Baker M.D. [address] [place] [phone] documented as of this encounter Visit Diagnoses Not on filedocumented in this encounter
--- OUTSIDE RECORDS SUMMARY | 2024-02-07 09:15 | XMS_ITS | Encounter Summary ---
Author Organization [facility] Address [address] [place] [address] Care Team Providers Care Sales Representative Sales Manager Name Role Phone Unavailable Primary Care Provider Unavailabl e Reason for Visit * Radiation Therapy (Routine) - Authorized Specialty Diagnoses / Procedures Referred By Amandeep baez Referred To Contact Diagnoses Primary Malignant Neoplasm Of Prostate (HCC) Procedures Prior Auth Rad Tx [place] IMRT SIMPLE IMRT prostate Nathen Baker M.D. 200 [place] [address] [facility] Referral ID Status Reason Start Date Expiration Date V isits Requested Visits Authorized [id number] Authorized 10/16/2023 07/14/2024 36 36 Encounter Details Date Type Department Care Team (Latest Contact Info) Description 11/07/2023 9:02 AM CDT - 11/07/2023 11:59 PM CDT Hospital Encounter Department of Radiation Oncology in [place], [place] [address] [place] [address] Nathen Baker M.D. [address] [place] [address] [phone] Discharge Disposition: Home or Self Care Social History Tobacco Use Types Packs/Day Years Used Date Smoking Tobacco: Never Smokeless Tobacco: Never Alcohol Use Standard Drinks/Week Comments Yes 0 (1 standard drink = 0.6 oz pur e alcohol) rarely [facility] Utilities Answer Date Recorded In the past 12 months has e [employer], [employer], oil, or water [email or web address] threatened to shut off services in your [...] your living situation today? I have a [facility] place to live 06/28/2023 Sex and Gender Information Value Date Recorded Sex Assigned at Male 06/28/2023 6:50 PM ASSURANCE SENIOR MANAGER Gender Identity Male 06/28/2023 6:50 PM ASSURANCE SENIOR MANAGER Sexual Orientation Straight 06/28/2023 6: 50 PM ASSURANCE SENIOR MANAGER documented as of this encounter Medications at [...] AM CDT Clinical Communication Virtual Review in [place], [place] 200 [place] [address] 04/01/2024 3:30 PM CDT Appointment Department of Radiation Oncology in [address] [phone] Nathen Baker M.D. [address] [place] [phone] documented as of this encounter Visit Diagnoses Not on filedocumented in this encounter
--- OUTSIDE RECORDS SUMMARY | 2024-02-07 09:15 | XMS_ITS | Encounter Summary ---
Author Organization [facility] Address [address] [place] [address] Care Team Providers Care Electrical Control Assembler Name Role Phone Unavailable Primary Care Provider Unavailabl e Reason for Visit * Radiation Therapy (Routine) - Authorized Specialty Diagnoses / Procedures Referred By Amandeep beaz Referred To Contact Diagnoses Primary Malignant Neoplasm Of Prostate (HCC) Procedures Prior Auth Rad Tx [place] IMRT SIMPLE IMRT prostate Nathen Baker M.D. 200 [place] [address] [facility] Referral ID Status Reason Start Date Expiration Date V isits Requested Visits Authorized [id number] Authorized 10/16/2023 07/14/2024 36 36 Encounter Details Date Type Department Care Team (Latest Contact Info) Description 11/13/2023 9:04 AM CDT - 11/13/2023 11:59 PM CDT Hospital Encounter Department of Radiation Oncology in [place], [place] [address] [place] [phone] Nathen Baker M.D. [address] [place] [phone] Discharge Disposition: Home or Self Care Social History Tobacco Use Types Packs/Day Years Used Date Smoking Tobacco: Never Smokeless Tobacco: Never Alcohol Use Standard Drinks/Week Comments Yes 0 (1 standard drink = 0.6 oz pur e alcohol) rarely [facility] Utilities Answer Date Recorded In the past 12 months has e Remote [employer], [employer], oil, or water [employer] threatened to shut off services in your [...] your living situation today? I have a [facility] place to live 06/28/2023 Sex and Gender Information Value Date Recorded Sex Assigned at Male 06/28/2023 6:50 PM DIGITAL PHOTOGRAPHER Gender Identity Male 06/28/2023 6:50 PM DIGITAL PHOTOGRAPHER Sexual Orientation Straight 06/28/2023 6: 50 PM DIGITAL PHOTOGRAPHER documented as of this encounter Medications at [...] AM CDT Clinical Communication Virtual Review in [place], [place] 200 [place] [address] 04/01/2024 3:30 PM CDT Appointment Department of Radiation Oncology in [address] [phone] Nathen Baker M.D. [address] [place] [phone] documented as of this encounter Visit Diagnoses Not on filedocumented in this encounter
--- OUTSIDE RECORDS SUMMARY | 2024-02-07 09:15 | XMS_ITS | Encounter Summary ---
Author Organization [facility] Address [address] [place] [address] Care Team Providers Care Supervisor Baking Name Role Phone Unavailable Primary Care Provider Unavailabl e Reason for Visit * Radiation Therapy (Routine) - Authorized Specialty Diagnoses / Procedures Referred By Amandeep baez Referred To Contact Diagnoses Primary Malignant Neoplasm Of Prostate (HCC) Procedures Prior Auth Rad Tx [place] IMRT SIMPLE IMRT prostate Nathen Baker M.D. 200 [place] [address] [facility] Referral ID Status Reason Start Date Expiration Date V isits Requested Visits Authorized [id number] Authorized 10/16/2023 07/14/2024 36 36 Encounter Details Date Type Department Care Team (Latest Contact Info) Description 11/08/2023 9:02 AM CDT - 11/08/2023 11:59 PM CDT Hospital Encounter Department of Radiation Oncology in [place], [place] [address] [place] [phone] Nathen Baker M.D. [address] [place] [address] [phone] Discharge Disposition: Home or Self Care Social History Tobacco Use Types Packs/Day Years Used Date Smoking Tobacco: Never Smokeless Tobacco: Never Alcohol Use Standard Drinks/Week Comments Yes 0 (1 standard drink = 0.6 oz pur e alcohol) rarely [facility] Utilities Answer Date Recorded In the past 12 months has e [employer], [employer], oil, or water [employer] threatened to shut off services in your [...] your living situation today? I have a [facility] place to live 06/28/2023 Sex and Gender Information Value Date Recorded Sex Assigned at Male 06/28/2023 6:50 PM CLAM DIGGER Gender Identity Male 06/28/2023 6:50 PM CLAM DIGGER Sexual Orientation Straight 06/28/2023 6: 50 PM CLAM DIGGER documented as of this encounter Medications at [...] AM CDT Clinical Communication Virtual Review in [place], [place] 200 [place] [address] 04/01/2024 3:30 PM CDT Appointment Department of Radiation Oncology in [address] [phone] Nathen Baker M.D. [address] [place] [phone] documented as of this encounter Visit Diagnoses Not on filedocumented in this encounter
--- OUTSIDE RECORDS SUMMARY | 2024-02-07 09:15 | XMS_ITS | Encounter Summary ---
Author Organization [facility] Address [address] [place] [address] Care Team Providers Care Spare Hand Carding Name Role Phone Unavailable Primary Care Provider Unavailabl e Reason for Referral * Radiation Therapy (Routine) - Authorized Specialty Diagnoses / Procedures Referred By Amandeep baez Referred To Contact Diagnoses Primary Malignant Neoplasm Of Prostate (HCC) Procedures Management Visit Nathen Baker M.D. 200 [place] [address] [facility] Region Referral ID Status Reason Start Date Expiration Date V isits Requested Visits Authorized [id number] Authorized 08/26/2023 08/25/2024 10 10 Reason for Visit * Radiation Therapy (Routine) - Authorized Specialty Diagnoses / Procedures Referred By Amandeep baez Referred To Contact Diagnoses Primary Malignant Neoplasm Of Prostate (HCC) Procedures Management Visit Nathen Baker M.D. 200 [place] [address] [facility] Region Referral ID Status Reason Start Date Expiration Date V isits Requested Visits Authorized [id number] Authorized 08/26/2023 08/25/2024 10 10 Encounter Details Date Type Department Care Team (Latest Contact Info) Description 11/13/2023 9:04 AM CDT - 11/15/2023 9:58 AM CDT Hospital Encounter Department of Radiation Oncology in [place], [place] [address] [place] [address] Nathen Baker M.D. [address] [place] [address] Primary Malignant Neoplasm Of Prostate (HCC) Social History Tobacco Use Types Packs/Day Years Used Date Smoking Tobacco: Never Smokeless Tobacco: Never Alcohol Use Standard Drinks/Week Comments Yes 0 (1 standard drink = 0.6 oz pur e alcohol) rarely [facility] Utilities Answer Date Recorded In [...] Sex Assigned at Male 06/28/2023 6:50 PM CUTTER AND PASTER PRESS CLIPPINGS Gender Identity Male 06/28/2023 6:50 PM CUTTER AND PASTER PRESS CLIPPINGS Sexual Orientation Straight 06/28/2023 6: 50 PM CUTTER AND PASTER PRESS CLIPPINGS documented as of this encounter Last Filed Vital Signs Vital Sign Reading Time Taken Comments Blood Pressure - - Pulse - - Temperature 36.4 ??C (97.5 ??F) 11/13/2023 9:37 AM CD T Respiratory Rate - - Oxygen Saturation - - Inhaled Oxygen Concentration - - Weight 98.3 kg (216 lb 11.4 oz) 11/13/2023 9:37 AM CDT Height - - Body Mass [...] Progress Notes * Nathen Baker M.D. - 11/13/2023 9:30 AM CDT SUBJECTIVE REASON FOR VISIT Evaluation for side effects while receiving radiation treatment for 1. Primary Malignant Neoplasm Of Prostate (HCC) SUPERVISED BY: Nathen Baker M.D. ([id number]) HISTORY OF PRESENT ILLNESS Mr. Vick Lafleur [...] (cGy) First Treatment Last Treatment Elapsed Days [id number] 10/21/2023 11/13/2023 Course Summary 10/21/2023 11/13/2023 The patient was seen and examined today with Dr. Baker. Patient reports nocturia hourly at night time. Baseline nocturia is 2-3 times a night. He has been taking 1/2 tablet of Imodium twice a day for management of diarrhea. Patient reports that last nighthe experienced more occurrences of diarrhea at night time compared to usual. Patient denies hematuria, rectal bleeding, dysuria. PATIENT REPORTED SYMPTOM SCREEN FATIGUE (Scale: 0 = no fatigue; 10 = worst fatigue you can imagine): 1 PAIN (Scale: 0 = no pain; 10 = worst pain you can imagine): 0 OVERALL QUALITY OF LIFE (Scale: 0 = as bad as can be; 10 = as good as can be): 10 OBJECTIVE Temp 36.4 ??C (Temporal) Wt 98.3 kg PHYSICAL EXAM [...] completion on December 03, 2023 Patient is to titrate up Imodium dosage depending on frequency of diarrhea. We discussed trialing 2tablets of Ibuprofen at bedtime to help manage nocturia. Ibuprofen is to be taken with food to avoid stomach upset. Patient will stop usage when nocturia improves post treatment completion. He will have his final 7.5 mg leuprolide injection at [facility] on November 20, 2023. He will contact us with any questions or concerns. We will continue with radiation treatment as planned. Signed by: Anni Godwin R.N. 11/13/2023 9:51 AM CDT I saw and evaluated the patient and participated in the burkett portions of the service. I reviewed thedocumentation of Anni Godwin R.N. and agree with the findings and plan. The patient appears well on exam. He is tolerating treatment well. He will continue with treatment as planned. Signed by: Nathen Baker M.D. 11/15/2023 9:58 AM CDT [facility] [address] [place] [address] documented in this encounter Plan of Treatment Upcoming Encounters Date Type Department Care Team (Latest Contact Info) Description 03/30/2024 9:45 AM CDT Clinical Communication Virtual Review in [place], [place] 200 [place] [address] 04/01/2024 3:30 PM CDT Appointment Department of Radiation Oncology in [address] [phone] Nathen Baker M.D. [address] [place] [phone] Scheduled Orders Name Type Priority Associated Diagnoses Orde r Schedule Management Visit Radiation Oncology Routine Primary Malignant Neoplasm Of Prostate (HCC) Once for 1 Occurrences starting 11/13/2023 until 11/13/2023 documented as of this encounter Visit Diagnoses Diagnosis Primary Malignant Neoplasm Of Prostate (HCC) documented in this encounter
--- OUTSIDE RECORDS SUMMARY | 2024-02-07 09:15 | XMS_ITS | Encounter Summary ---
Author Organization [facility] Address [address] [place] [address] Care Team Providers Care Roll Mill Operator Name Role Phone Unavailable Primary Care Provider Unavailabl e Reason for Visit * Radiation Therapy (Routine) - Authorized Specialty Diagnoses / Procedures Referred By Amandeep baez Referred To Contact Diagnoses Primary Malignant Neoplasm Of Prostate (HCC) Procedures Prior Auth Rad Tx [place] IMRT SIMPLE IMRT prostate Nathen Baker M.D. 200 [place] [address] [facility] Referral ID Status Reason Start Date Expiration Date V isits Requested Visits Authorized [id number] Authorized 10/16/2023 07/14/2024 36 36 Encounter Details Date Type Department Care Team (Latest Contact Info) Description 11/21/2023 9:02 AM CDT - 11/21/2023 11:59 PM CDT Hospital Encounter Department of Radiation Oncology in [place], [place] [address] [place] [phone] Nathen Baker M.D. [address] [place] [phone] Discharge Disposition: Home or Self Care Social History Tobacco Use Types Packs/Day Years Used Date Smoking Tobacco: Never Smokeless Tobacco: Never Alcohol Use Standard Drinks/Week Comments Yes 0 (1 standard drink = 0.6 oz pur e alcohol) rarely [facility] Utilities Answer Date Recorded In the past 12 months has e [employer], [employer], oil, or water [employer] threatened to shut off services in your [...] your living situation today? I have a [facility] place to live 06/28/2023 Sex and Gender Information Value Date Recorded Sex Assigned at Male 06/28/2023 6:50 PM CAR AUDIO INSTALLER Gender Identity Male 06/28/2023 6:50 PM CAR AUDIO INSTALLER Sexual Orientation Straight 06/28/2023 6: 50 PM CAR AUDIO INSTALLER documented as of this encounter Medications at [...] AM CDT Clinical Communication Virtual Review in [place], [place] 200 [place] [address] 04/01/2024 3:30 PM CDT Appointment Department of Radiation Oncology in [address] [phone] Nathen Baker M.D. [address] [place] [phone] documented as of this encounter Visit Diagnoses Not on filedocumented in this encounter
--- OUTSIDE RECORDS SUMMARY | 2024-02-07 09:15 | XMS_ITS | Encounter Summary ---
Author Organization [facility] Address [address] [place] [address] Care Team Providers Care Depositing Machine Operator Name Role Phone Unavailable Primary Care Provider Unavailabl e Reason for Visit * Radiation Therapy (Routine) - Authorized Specialty Diagnoses / Procedures Referred By Amandeep baez Referred To Contact Diagnoses Primary Malignant Neoplasm Of Prostate (HCC) Procedures Prior Auth Rad Tx [place] IMRT SIMPLE IMRT prostate Nathen Baker M.D. 200 [place] [address] [facility] Referral ID Status Reason Start Date Expiration Date V isits Requested Visits Authorized [id number] Authorized 10/16/2023 07/14/2024 36 36 Encounter Details Date Type Department Care Team (Latest Contact Info) Description 11/22/2023 9:00 AM CDT - 11/22/2023 11:59 PM CDT Hospital Encounter Department of Radiation Oncology in [place], [place] [address] [place] [phone] Nathen Baker M.D. [address] [place] [phone] Discharge Disposition: Home or Self Care Social History Tobacco Use Types Packs/Day Years Used Date Smoking Tobacco: Never Smokeless Tobacco: Never Alcohol Use Standard Drinks/Week Comments Yes 0 (1 standard drink = 0.6 oz pur e alcohol) rarely [facility] Utilities Answer Date Recorded In the past 12 months has e [employer], [employer], oil, or water [employer] threatened to shut off services in your [...] your living situation today? I have a [facility] place to live 06/28/2023 Sex and Gender Information Value Date Recorded Sex Assigned at Male 06/28/2023 6:50 PM PIN DRAFTER OPERATOR Gender Identity Male 06/28/2023 6:50 PM PIN DRAFTER OPERATOR Sexual Orientation Straight 06/28/2023 6: 50 PM PIN DRAFTER OPERATOR documented as of this encounter Medications [...] AM CDT Clinical Communication Virtual Review in [place], [place] 200 [place] [address] 04/01/2024 3:30 PM CDT Appointment Department of Radiation Oncology in [address] [phone] Nathen Baker M.D. [address] [place] [phone] documented as of this encounter Visit Diagnoses Not on filedocumented in this encounter
--- OUTSIDE RECORDS SUMMARY | 2024-02-07 09:16 | XMS_ITS | Encounter Summary ---
Author Organization [facility] Address [address] [place] [address] Care Team Providers Care Breaker Boss Name Role Phone Unavailable Primary Care Provider Unavailabl e Reason for Referral * Radiation Therapy (Routine) - Authorized Specialty Diagnoses / Procedures Referred By Amandeep baez Referred To Contact Diagnoses Primary Malignant Neoplasm Of Prostate (HCC) Procedures Management Visit Nathen Baker M.D. 200 [place] [address] [facility] Region Referral ID Status Reason Start Date Expiration Date V isits Requested Visits Authorized [id number] Authorized 08/26/2023 08/25/2024 10 10 Reason for Visit * Radiation Therapy (Routine) - Authorized Specialty Diagnoses / Procedures Referred By Amandeep baez Referred To Contact Diagnoses Primary Malignant Neoplasm Of Prostate (HCC) Procedures Management Visit Nathen Baker M.D. [address] [place] [address] [facility] Region Referral ID Status Reason Start Date Expiration Date V isits Requested Visits Authorized [id number] Authorized 08/26/2023 08/25/2024 10 10 Encounter Details Date Type Department Care Team (Latest Contact Info) Description 10/30/2023 9:34 AM CDT - 11/03/2023 9:05 AM CDT Hospital Encounter Department of Radiation Oncology in [place], [place] [address] [place] [phone] Nathen Baker M.D. [address] [place] [address] Rising Prostate Specific Antigen Following Treatment For [...] In the past 12 months has e [email or web address], gas, oil, or water company threatened to [...] your living situation today? I have a [place] place to live 06/28/2023 Sex and Gender Information Value Date Recorded Sex Assigned at Male 06/28/2023 6:50 PM ENTEROSTOMAL THERAPY NURSE Gender Identity Male 06/28/2023 6:50 PM ENTEROSTOMAL THERAPY NURSE Sexual Orientation Straight 06/28/2023 6: 50 PM ENTEROSTOMAL THERAPY NURSE documented as of this encounter Last Filed Vital Signs Vital Sign Reading Time Taken Comments Blood Pressure - - Pulse - - Temperature 36.2 ??C (97.1 ??F) 10/30/2023 10:10 AM C DT Respiratory Rate - - Oxygen Saturation - - Inhaled Oxygen Concentration - - Weight 99 kg (218 lb 4.1 oz) 10/30/2023 10:10 AM CDT Height - - Body Mass [...] Progress Notes * Nathen Baker M.D. - 10/30/2023 10:00 AM CDT SUBJECTIVE REASON FOR VISIT Evaluation for side effects while receiving radiation treatment for 1. Rising Prostate Specific Antigen Following Treatment For Malignant Cancer Of Prostate 2. Primary Malignant Neoplasm Of Prostate (HCC) SUPERVISED BY: Nathen Baker M.D. ([phone]) HISTORY OF PRESENT ILLNESS Mr. Vick Lafleur [...] (cGy) First Treatment Last Treatment Elapsed Days [id number] 10/21/2023 10/30/2023 9 Course Summary 10/21/2023 10/30/2023 9 The patient was seen and examined today with Dr. Baker. The patient denies dysuria, hematuria, rectal bleeding, diarrhea. He is participating in pelvic floor therapy in [place]. He denies hot flashes are any side effects from ADT. Baseline nocturia of 2-3 has not changed in nature. PATIENT REPORTED SYMPTOM SCREEN FATIGUE (Scale: 0 = no fatigue; 10 = worst fatigue you can imagine): 2 PAIN (Scale: 0 = no pain; 10 = worst pain you can imagine): 0 OVERALL QUALITY OF LIFE (Scale: 0 = as bad as can be; 10 = as good as can be): 10 OBJECTIVE Temp 36.2 ??C (Temporal) Wt 99 kg PHYSICAL EXAM General: Alert and oriented [...] mg leuprolide injection on August 27, 2023; planned 4-6 months #6 Intensity modulated radiotherapy to the prostate fossa and pelvic lymph nodes initiated on 2023; anticipated completion on December 03, 2023 The patient is tolerating radiation treatment well overall. Dr. Baker ordered 1 month leuprolideinjection to be completed at [facility] on November 20, 2023. This will complete a total of 5 months of ADT and no more further ADT planned. He will contact us with any questions or concerns. We will continue with radiation treatment as planned. Signed by: Anni Godwin R.N. 10/30/2023 10:36 AM CDT I saw and evaluated the patient and participated in the burkett portions of the service. I reviewed thedocumentation of Anni Godwin R.N. and agree with the findings and plan. The patient appears well on exam. He is tolerating treatment well. He will have his final 7.5 mg leuprolide injection at [facility] on November 20, 2023. He will continue with treatment as planned. Signed by: Nathen Baker M.D. 11/03/2023 9:04 AM CDT [facility] [address] [place] [address] documented in this encounter Miscellaneous Notes * Addendum Note - Emily Cross C.NEnoch - 10/30/2023 10:00 AM CDTEncounter addended by: Emily Cross C.NEnoch on: 11/04/2023 10:06 AM Actions taken: Letter saved documented in this encounter Plan of Treatment Upcoming Encounters Date Type Department Care Team (Latest Contact Info) Description 03/30/2024 9:45 AM CDT Clinical Communication Virtual Review in [place], [place] [address] [place] [address] 04/01/2024 3:30 PM CDT Appointment Department of Radiation Oncology in [place], [place] [address] [place] [address] Nathen Baker M.D. [address] [place] [address] Scheduled Orders Name Type Priority Associated Diagnoses Orde r Schedule Management Visit Radiation Oncology Routine Primary Malignant Neoplasm Of Prostate (HCC) Once for 1 Occurrences starting 10/30/2023 until 10/30/2023 documented as of this encounter Visit Diagnoses Diagnosis Rising Prostate Specific Antigen Following Treatment For Malignant Cancer Of Prostate- Primary Primary Malignant Neoplasm Of Prostate (HCC) documented in this encounter
--- OUTSIDE RECORDS SUMMARY | 2024-02-07 09:16 | XMS_ITS | Encounter Summary ---
Author Organization [facility] Address [address] [place] [address] Care Team Providers Care Dental Chair Assembler Name Role Phone Unavailable Primary Care Provider Unavailabl e Reason for Visit * Radiation Therapy (Routine) - Authorized Specialty Diagnoses / Procedures Referred By Amandeep baez Referred To Contact Diagnoses Primary Malignant Neoplasm Of Prostate (HCC) Procedures Prior Auth Rad Tx [place] IMRT SIMPLE IMRT prostate aNthen Baker M.D. 200 [place] [address] [facility] Referral ID Status Reason Start Date Expiration Date V isits Requested Visits Authorized [id number] Authorized 10/16/2023 07/14/2024 36 36 Encounter Details Date Type Department Care Team (Latest Contact Info) Description 10/30/2023 9:34 AM CDT - 10/30/2023 11:59 PM CDT Hospital Encounter Department of Radiation Oncology in [place], [place] [address] [place] [phone] Nathen Baker M.D. [address] [place] [phone] Discharge Disposition: Home or Self Care Social History Tobacco Use Types Packs/Day Years Used Date Smoking Tobacco: Never Smokeless Tobacco: Never Alcohol Use Standard Drinks/Week Comments Yes 0 (1 standard drink = 0.6 oz pur e alcohol) rarely [facility] Utilities Answer Date Recorded In the past 12 months has e [employer], [employer], oil, or water [employer] threatened to shut off services in your [...] your living situation today? I have a [facility] place to live 06/28/2023 Sex and Gender Information Value Date Recorded Sex Assigned at Male 06/28/2023 6:50 PM MEDICATION ADMINISTRATION PROFESSIONAL Gender Identity Male 06/28/2023 6:50 PM MEDICATION ADMINISTRATION PROFESSIONAL Sexual Orientation Straight 06/28/2023 6: 50 PM MEDICATION ADMINISTRATION PROFESSIONAL documented as of this encounter Medications at [...] AM CDT Clinical Communication Virtual Review in [place], [place] [address] [place] [address] 04/01/2024 3:30 PM CDT Appointment Department of Radiation Oncology in [address] [phone] Nathen Baker M.D. [address] [place] [phone] documented as of this encounter Visit Diagnoses Not on filedocumented in this encounter
--- OUTSIDE RECORDS SUMMARY | 2024-02-07 09:16 | XMS_ITS | Clinical Summary ---
Author Organization [facility] Address [place], [place] [address] Care Team Providers Care Production Service Manager Name Role Phone Toi Schwartz MD Primary Care Provider Allergies Active Allergy Reactions Criticality Noted Date Comments Unlisted Allergen (Include D etail In Comments) *Unknown 09/14/2021 Yellow Fever Vaccine Live *Unknown 09/14/2021 Medications Medication Sig Dispensed Refills Start Date End Date Status calcium carbonate-cholec alciferol, 600mg-200 units, (CALTRATE-600 + VIT D) tablet Daily Active glipiZIDE (GLUCOTROL) 10 mg tablet TAKE 1 TABLET (10 MG) BY MOUTH 2 TIMES A DAY. 09/24/2021 Active lisinopril-hydro chlorothiazide, 20-25 mg, (PRINZIDE, ZESTORETIC) 20-25 mg per tablet Daily 09/14/2021 Active metFORMIN (GLUCOPHAGE XR) 500 mg Extended-Release tablet 2,000 mg. 09/14/2021 Active simvastatin (ZOCOR) 20 mg tablet Bedtime 09/14/2021 Active semaglutide (OZEMPIC) 1 mg/dose (4 mg/3 mL) Inject 1 mg subcutaneous once weekly. Active aspirin chewable 81 mg chewable tabletIndication s:Prostate cancer (HC) Chew 1 Tablet (81 mg) by mouth once daily. Ok to resume taking 5 days after surgery 0 07/11/2022 Active bisacodyL (DULCOLAX) 10 mg suppositoryIndic ations:Prostate cancer (HC) Unwrap and insert 1 Suppository (10 mg) rectally one time if needed for Constipation (If no bowel movement 3 days after surgery (two days after hospital discharge), use one suppository) for up to 1 dose. 1 Suppository 07/11/2022 Active oxyCODONE (ROXICODONE) 5 mg immediate release tabletIndication s:Prostate cancer (HC) Take 1 Tablet (5 mg) by mouth every 6 hours if needed for Pain (For severe pain.). 10 Tablet 07/12/2022 Active Active Problems Problem Noted Date Diagnosed Date Prostate cancer 07/11/2022 Type 2 diabetes mellitus without complication HTN (hypertension) 01/27/2015 Hyperlipidemia 01/27/2015 Social History Tobacco Use Types Packs/Day Years Used Date Smoking Tobacco: Never Smokeless Tobacco: Former Chew Quit: 07/15/1980 Tobacco Cessation:Counseling Given: Not Answered Comments:only chewed occasionally for one year Alcohol Use Standard Drinks/Week Comments Yes 1 (1 standard drink = 0.6 oz pur e alcohol) I go months without drinking Sex and Gender Information Value Date Recorded Sex Assigned at Not on file Gender Identity Not on file Sexual Orientation Not on file Obstetrics History Last Filed Vital Signs Vital Sign Reading Time Taken Comments Blood Pressure 117/61 07/12/2022 7:00 AM MINESWEEPING OFFICER Pulse 79 07/12/2022 7:00 AM MINESWEEPING OFFICER Temperature 36.7 ??C (98.1 ??F) 07/12/2022 7:00 AM CS T Respiratory Rate 14 07/12/2022 7:00 AM MINESWEEPING OFFICER Oxygen Saturation 93% 07/12/2022 7:00 AM MINESWEEPING OFFICER Inhaled Oxygen Concentration - - Weight 97.7 kg (215 lb 4.8 oz) 07/12/2022 6:00 A M MINESWEEPING OFFICER Height 167.6 cm (5' 6) 07/11/2022 6:47 AM MINESWEEPING OFFICER Body Mass Index 34.75 07/11/2022 6:47 AM MINESWEEPING OFFICER Plan of Treatment Health Maintenance Due Date Last Done Comments Tdap 1969 Depression screening for age 12+ 1970 HIV for age 15-65 1973 BMI (ht and wt on same day) for age 18+ 1976 Hepatitis C screening for ag e 18-79 1976 Tetanus booster 1978 Colonoscopy through age 75 2003 Lipids for age 45-75 2003 Zoster (shingles) series for age 50+ (1 of 2) 2008 Pneumococcal series for age 65+ (1 of 1 - PCV) 2023 COVID-19 vaccine series (5 - 2022- season) 2023 03/26/2022, 07/05/2021, 10/28/2020, Additional history exists Influenza for age 65+ 03/15/2024 Advance Directives * Full Code (Latest Code Status on File) Date Activated Date Inactivated Comments 07/11/2022 5:59 AM 07/12/2022 3:22 PM Question Answer Comments Code Status Discussion: Not Discussed Care Teams Production Service Manager Relationship Specialty Start Date End Date Toi Schwartz MD [address] [place] [address] PCP - General Family Practice 06/22/22
--- OUTSIDE RECORDS SUMMARY | 2024-02-07 09:16 | XMS_ITS | Encounter Summary ---
Author Organization [facility] Address [address] [place] [address] Care Team Providers Care Cuprous Chloride Operator Name Role Phone Unavailable Primary Care Provider Unavailabl e Reason for Visit * Radiation Therapy (Routine) - Authorized Specialty Diagnoses / Procedures Referred By Amandeep baez Referred To Contact Diagnoses Primary Malignant Neoplasm Of Prostate (HCC) Procedures Prior Auth Rad Tx [place] IMRT SIMPLE IMRT prostate Nathen Baker M.D. 200 [place] [address] [facility] Referral ID Status Reason Start Date Expiration Date V isits Requested Visits Authorized [id number] Authorized 10/16/2023 07/14/2024 36 36 Encounter Details Date Type Department Care Team (Latest Contact Info) Description 11/01/2023 9:35 AM CDT - 11/01/2023 11:59 PM CDT Hospital Encounter Department of Radiation Oncology in [place], [place] [address] [place] [phone] Nathen Baker M.D. [address] [place] [phone] Discharge Disposition: Home or Self Care Social History Tobacco Use Types Packs/Day Years Used Date Smoking Tobacco: Never Smokeless Tobacco: Never Alcohol Use Standard Drinks/Week Comments Yes 0 (1 standard drink = 0.6 oz pur e alcohol) rarely [facility] Utilities Answer Date Recorded In the past 12 months has e [employer], oil, or water [employer] threatened to shut off services in your [...] Sex Assigned at Male 06/28/2023 6:50 PM ACTOR UNDERSTUDY Gender Identity Male 06/28/2023 6:50 PM ACTOR UNDERSTUDY Sexual Orientation Straight 06/28/2023 6: 50 PM ACTOR UNDERSTUDY documented as of this encounter Medications at [...] CDT Clinical Communication Virtual Review in [place], [place] 200 [place] [address] 04/01/2024 3:30 PM CDT Appointment Department of Radiation Oncology in [address] [phone] Nathen Baker M.D. [address] [place] [phone] documented as of this encounter Visit Diagnoses Not on filedocumented in this encounter
--- OUTSIDE RECORDS SUMMARY | 2024-02-07 09:16 | XMS_ITS | Encounter Summary ---
Author Organization [facility] Address [address] [place] [address] Care Team Providers Care Industrial Garage Servicer Name Role Phone Unavailable Primary Care Provider Unavailabl e Reason for Visit * Radiation Therapy (Routine) - Authorized Specialty Diagnoses / Procedures Referred By Amandeep baez Referred To Contact Diagnoses Primary Malignant Neoplasm Of Prostate (HCC) Procedures Prior Auth Rad Tx [place] IMRT SIMPLE IMRT prostate Nathen Baker M.D. 200 [place] [address] [facility] Referral ID Status Reason Start Date Expiration Date V isits Requested Visits Authorized [id number] Authorized 10/16/2023 07/14/2024 36 36 Encounter Details Date Type Department Care Team (Latest Contact Info) Description 11/06/2023 9:03 AM CDT - 11/06/2023 11:59 PM CDT Hospital Encounter Department of Radiation Oncology in [place], [place] [address] [place] [phone] Nathen Baker M.D. [address] [place] [phone] Discharge Disposition: Home or Self Care Social History Tobacco Use Types Packs/Day Years Used Date Smoking Tobacco: Never Smokeless Tobacco: Never Alcohol Use Standard Drinks/Week Comments Yes 0 (1 standard drink = 0.6 oz pur e alcohol) rarely [facility] Utilities Answer Date Recorded In the past 12 months has e [employer], [employer], oil, or water [employer] threatened to shut off services in your [...] your living situation today? I have a [facility] place to live 06/28/2023 Sex and Gender Information Value Date Recorded Sex Assigned at Male 06/28/2023 6:50 PM MEDICAL RECEPTIONIST ASSISTANT Gender Identity Male 06/28/2023 6:50 PM MEDICAL RECEPTIONIST ASSISTANT Sexual Orientation Straight 06/28/2023 6: 50 PM MEDICAL RECEPTIONIST ASSISTANT documented as of this encounter Medications at [...] AM CDT Clinical Communication Virtual Review in [place], [place] [address] [place] [address] 04/01/2024 3:30 PM CDT Appointment Department of Radiation Oncology in [address] [phone] Nathen Baker M.D. [address] [place] [phone] documented as of this encounter Visit Diagnoses Not on filedocumented in this encounter
--- OUTSIDE RECORDS SUMMARY | 2024-02-07 09:16 | XMS_ITS | Referral Summary ---
Author Organization [facility] Address [address] [place] [address] Care Team Providers Care Print Binding Worker Name Role Phone No Ref-Primary, Physician Primary Care Provider Allergies Active Allergy Reactions Criticality Noted Date Comments Flu Virus Vaccine 01/26/2008 Yellow Fever Vaccine 01/26/2008 Medications Medication Sig Dispensed Refills Start Date End Date Status ACCU-CHEK MULTICLIX LANCETS MISCIndications:Type II or unspecified type diabetes mellitus without mention of complication, not stated as uncontrolled test QID as directed 3 months 1 year 02/09/2008 Active ASPIRIN 81 MG OR TABSIndications:Type II or unspecified type diabetes mellitus without mention of complication, not stated as uncontrolled ONE DAILY 0 0 02/18/2008 Active FISH OIL 1000 MG PO CAPS 1 daily Active CALCIUM + D PO 1 daily Active glucose blood test strips stripIndications:Type II or unspecified type diabetes mellitus without mention of complication, not stated as uncontrolled 1 strip by In Vitro route 4 times daily (before meals and nightly) test QID as directed. 3 Month 0 06/09/2013 Active metFORMIN (GLUCOPHAGE-XR) 500 MG 24 hr tabletIndications:Typ e 2 diabetes, HbA1c goal < 7% (H) Take 2 tablets (1,000 mg) by mouth 2 times daily (with meals) 360 tablet 1 09/10/2013 Active glipiZIDE (GLUCOTROL) 10 MG tabletIndications:Typ e 2 diabetes, HbA1c goal < 7% (H) Take 1 tablet (10 mg) by mouth 2 times daily (before meals) 180 tablet 1 09/10/2013 Active sitagliptan (JANUVIA) 100 MG tabletIndications:Typ e 2 diabetes, HbA1c goal < 7% (H) Take 1 tablet (100 mg) by mouth daily 90 tablet 1 09/10/2013 Active lisinopril-hydrochlor othiazide (PRINZIDE,ZESTORETIC) 20-12.5 MG per tabletIndications:Hyp ertension goal BP (blood pressure) < 140/90 Take 2 tablets by mouth daily 180 tablet 1 09/10/2013 Active simvastatin (ZOCOR) 20 MG tabletIndications:Hyp erlipidemia LDL goal <100 1 tab in the evening 90 tablet 1 09/10/2013 Active Active Problems Problem Noted Date Diagnosed Date Hypertension goal BP (blood pressure) < 140/90 0 12/12/2010 TYPE 2 DIABETES, HBA1C GOAL < 7% 05/14/2010 Hyperlipidemia LDL goal <100 01/26/2008 Resolved Problems Problem Noted Date Diagnosed Date Resolved Date Diabetes mellitus, type 2 01/26/2008 Overview: Problem list name updated by automated process. Provider to review HTN (hypertension) 01/26/2008 1 Immunizations Name Administration Dates Next Due TD,PF 7+ (Tenivac) 12/05/2007,08/15/1998 TDAP Vaccine (Boostrix) 06/10/2012 Social History Tobacco Use Types Packs/Day Years Used Date Smoking Tobacco: Never Smokeless Tobacco: Never Alcohol Use Standard Drinks/Week Comments Yes 0 (1 standard drink = 0.6 oz pur e alcohol) RARE Adolescent Education Answer Date Record ed Getting School Help Needed Not on file 04/28 Sex and Gender Information Value Date Recorded Sex Assigned at Not on file Gender Identity Not on file Sexual Orientation Not on file Last Filed Vital Signs Vital Sign Reading Time Taken Comments Blood Pressure 134/78 11/23/2013 10:19 AM CDT Pulse 75 11/23/2013 10:19 AM CDT Temperature 36.7 ??C (98.1 ??F) 11/23/2013 10:19 AM C DT Respiratory Rate 16 12/26/2011 9:46 AM CDT Oxygen Saturation 95% 11/23/2013 10:19 AM CDT Inhaled Oxygen Concentration - - Weight 111.7 kg (246 lb 5 oz) 11/23/2013 10:19 A M CDT Height 170.2 cm (5' 7) 11/23/2013 10:19 AM CDT Body Mass Index 38.58 11/23/2013 10:19 AM CDT Plan of Treatment Not on file Procedures Procedure Name Priority Date/Time Associated Diagnosis Comments BASIC METABOLIC PANEL Routine 11/13/2013 8:17 AM CDT Type 2 diabetes, HbA1C goal < 7% (H) Hypertension goal BP (blood pressure) < 140/90 HEMOGLOBIN A1C Routine 11/13/2013 8:17 AM CDT Type 2 diabetes, HbA1C goal < 7% (H) ALBUMIN RANDOM URINE QUANTITATIVE Routine 05/07/2013 8:32 AM CDT Hypertension goal BP (blood pressure) < 140/90 Type 2 diabetes, HbA1C goal < 7% (H) LIPID REFLEX TO DIRECT LDL PANEL Routine 05/07/2013 8:22 AM CDT Hyperlipidemia LDL goal <100 Hypertension goal BP (blood pressure) < 140/90 HCL PROSTATE SPEC ANTIGEN,SCREEN Routine 08/01/2009 9:37 AM AIRCRAFT PART ASSEMBLER Screening PSA (Prostate Specific Antigen) COLONOSCOPY Routine 01/04/2009 10:55 AM CDT from Last 3 Months or Most Recently Relevant to Health Maintenance Results * (ABNORMAL) Hemoglobin A1c (11/13/2013 8:17 AM CDT) Hemoglobin A1C 7.9(H) 4.3 - 6.0 % [facility] Blood specimen (specimen) 11/13/2013 8:17 AM CDT 11/13/2013 8:22 AM CDT Hardeep Pickett MD LAB - BLOOD OR DERABLES [facility] [address] [place] [address] * (ABNORMAL) Basic metabolic panel (11/13/2013 8:17 AM CDT) Sodium 135 133 - 144 mmol/L [facility] Potassium 4.3 3.4 - 5.3 mmol/L [facility] Chloride 95 94 - 109 mmol/L [facility] Carbon Dioxide 27 20 - 32 mmol/L [facility] Anion Gap 13 6 - 17 mmol/L [facility] Glucose 177(H) 60 - 99 mg/dL [facility] Urea Nitrogen 14 7 - 30 mg/dL [facility] Creatinine 0.77 0.66 - 1.25 mg/dL [facility] GFR Estimate >90 >60 mL/min/1.[address] [facility] GFR Estimate If Black >90 >60 mL/min/1.[address] [facility] Calcium 8.8 8.5 - 10.4 mg/dL [facility] Blood specimen (specimen) 11/13/2013 8:17 AM CDT 11/13/2013 8:22 AM CDT Hardeep Pickett MD LAB - BLOOD OR DERABLES Performing Organization Address City/[facility]/ZIP Co de Phone Number [facility] [address] [place], [place] [id number] * Microalbumin quantitative random urine (05/07/2013 8:32 AM CDT) Creatinine Urine 154 mg/dL [facility] Albumin Urine mg/L <5 Urine Microalbumin lowest reportable value has been changed from 2 mg/L to 5 mg/L due to a methodology change on October. mg/L [facility] Albumin Urine mg/g Cr Unable to calculate 0 - 17 mg/g Cr [facility] Urine specimen (specimen) 05/07/2013 8:32 AM CDT 05/07/2013 8:34 AM CDT Hardeep Pickett MD LAB - URINE OR DERABLES [facility] * (ABNORMAL) Lipid Profile with reflex to direct LDL (05/07/2013 8:22 AM CDT) Cholesterol 122 0 - 200 mg/dL [facility] Comment: LDL Cholesterol is the primary guide to therapy. The NCEP recommends further evaluation of: patients with cholesterol greater than 200 mg/dL if additional risk factors are present, cholesterol greater than 240 mg/dL, triglycerides greater than 150 mg/dL, or HDL less than 40 mg/dL. Triglycerides 248(H) 0 - 150 mg/dL [facility] HDL Cholesterol 32(L) 40 - 110 mg/dL [facility] LDL Cholesterol Calculated 40 0 - 129 mg/dL [facility] Comment: LDL Cholesterol is the primary guide to therapy: LDL-cholesterol goal in high risk patients is <100 mg/dL and in very high risk patients is <70 mg/dL. VLDL-Cholesterol 50(H) 0 - 30 mg/dL [facility] Cholesterol/HDL Ratio 3.8 0.0 - 5.0 [facility] Blood specimen (specimen) 05/07/2013 8:22 AM CDT 05/07/2013 8:24 AM CDT Hardeep Pickett MD LAB - BLOOD OR DERABLES Performing Organization Address City/[facility]/ZIP Co de Phone Number [address] [address] * PROSTATE SPEC ANTIGEN,SCREEN (08/01/2009 9:37 AM AIRCRAFT PART ASSEMBLER) PSA 2.60 0 - 4 ug/L [facility] 08/01/2009 9:37 AM AIRCRAFT PART ASSEMBLER 08/01/2009 9:39 AM AIRCRAFT PART ASSEMBLER Hardeep Pickett MD LABORATORY [facility] * COLONOSCOPY (01/04/2009 10:55 AM CDT) COLONOSCOPY Endoscopy Patient Name: Vick Lafleur ? Gender: M ? Procedure Date: 01/04/2009 10:55 AM ? Date of : 1960 ?Age: 48 ? Admit Type: Outpatient ? Attending MD: Jassi Menezes MD ? Procedure: ? Colonoscopy Indications: ? Average risk screening for malignant neoplasm in the ? colon Providers: ? Jassi Menezes MD Referring MD: ?Hardeep Pickett MD Medicines: ? Fentanyl 100 micrograms IV, Midazolam 2 mg IV, Atropine ? 0.6 mg IV Complications: ? No immediate complications Procedure: ? - Prior to the procedure, a History and Physical was ? performed, and patient medication allergies were ? reviewed. The patient is competent. The risks and ? benefits of the procedure and the sedation options and ? risks were discussed with the patient. All questions ? were answered and informed consent was obtained. Patient ? identification and proposed procedure were verified by ? the physician in the procedure room. Mental Status ? Examination: alert and oriented. Airway Examination: ? normal oropharyngeal airway and neck mobility. ? Respiratory Examination: clear to auscultation. CV ? Examination: normal. ASA Grade Assessment: II - A ? patient with mild systemic disease. After reviewing the ? risks and benefits, the patient was deemed in ? satisfactory condition to undergo the procedure. The ? anesthesia plan was to use moderate sedation / analgesia ? (conscious sedation). Immediately prior to ? administration of medications, the patient was ? re-assessed for adequacy to receive sedatives. The heart ? rate, respiratory rate, oxygen saturations, blood ? pressure, adequacy of pulmonary ventilation, and ? response to care were monitored throughout the ? procedure. The physical status of the patient was ? re-assessed after the procedure. ? After obtaining informed consent, the colonoscope was ? passed under direct vision. Throughout the procedure, ? the patient's blood pressure, pulse, and oxygen ? saturations were monitored continuously. The ? [id number] was introduced through the anus and ? advanced to the ileum. The colonoscopy was performed ? without difficulty. The patient tolerated the procedure ? well. The quality of the prep was good. ? Findings: ? The digital rectal exam was normal. A benign appearing sessile polyp was ? found in the rectum. The polyp was 2 mm in size. This was biopsied with ? a hot forceps for histology. The sigmoid colon, descending colon, ? splenic flexure, transverse colon, hepatic flexure, ascending colon, ? cecum, ileocecal valve and ileum appeared normal. The retroflexed view ? of the anal verge was normal and showed no anal or rectal abnormalities. ? The terminal ileum appeared normal. ? Impression: ?- A 2 mm polyp in the rectum. Tissue was removed. ? - The sigmoid colon, descending colon, splenic flexure, ? transverse colon, hepatic flexure, ascending colon, ? cecum, ileocecal valve and terminal ileum are normal. ? - The terminal ileum is normal. Recommendation: ?- Discharge patient to home (ambulatory). ? - Patient should telephone endoscopist in 1 week. ? - If polyp is adenomatous repeat colonoscopy in 3 years. ? If polyp is hyperplastic then hemoccults q yr and flex ? sigmoidoscopy in 3 yrs. ? - Return to primary care physician PRN. ? R Riri Landin Jassi Menezes MD Signed Date: 01/04/2009 11:10 AM Number of Addenda: 0 I was physically present for the entire viewing portion of the exam. Note initiated on 01/04/2009 10:53 AM RADIOLOGY RESULTS COLONOSCOPY RADIOLOG Y RESULTS 01/04/2009 10:5 5 AM CDT Hardeep Pickett MD PROCEDURES RADIOLOGY RESULTS from Last 3 Months or Most Recently Relevant to Health Maintenance Care Teams Print Binding Worker Relationship Specialty Start Date End Date No Ref-Primary, Physician PCP - General 05/02/22
--- OUTSIDE RECORDS SUMMARY | 2024-02-07 09:16 | XMS_ITS | Encounter Summary ---
Author Organization [facility] Address [address] [place] [address] Care Team Providers Care Layout Man Name Role Phone Unavailable Primary Care Provider Unavailabl e Reason for Visit * Radiation Therapy (Routine) - Authorized Specialty Diagnoses / Procedures Referred By Amandeep baez Referred To Contact Diagnoses Primary Malignant Neoplasm Of Prostate (HCC) Procedures Prior Auth Rad Tx [place] IMRT SIMPLE IMRT prostate Nathen Baker M.D. 200 [place] [address] Health System Referral ID Status Reason Start Date Expiration Date V isits Requested Visits Authorized [id number] Authorized 10/16/2023 07/14/2024 36 36 Encounter Details Date Type Department Care Team (Latest Contact Info) Description 11/04/2023 9:16 AM CDT - 11/04/2023 11:59 PM CDT Hospital Encounter Department of Radiation Oncology in [place], [place] [address] [place] [phone] Nathen Baker M.D. [address] [place] [phone] Discharge Disposition: Home or Self Care Social History Tobacco Use Types Packs/Day Years Used Date Smoking Tobacco: Never Smokeless Tobacco: Never Alcohol Use Standard Drinks/Week Comments Yes 0 (1 standard drink = 0.6 oz pur e alcohol) rarely [facility] Utilities Answer Date Recorded In the past 12 months has e [employer], [employer], oil, or water [employer] threatened to shut off services in your [...] your living situation today? I have a [facility] place to live 06/28/2023 Sex and Gender Information Value Date Recorded Sex Assigned at Male 06/28/2023 6:50 PM PRODUCTION SUPPORT SUPERVISOR Gender Identity Male 06/28/2023 6:50 PM PRODUCTION SUPPORT SUPERVISOR Sexual Orientation Straight 06/28/2023 6: 50 PM PRODUCTION SUPPORT SUPERVISOR documented as of this encounter Medications [...] AM CDT Clinical Communication Virtual Review in [place], [place] [address] [place] [address] 04/01/2024 3:30 PM CDT Appointment Department of Radiation Oncology in [address] [phone] Nathen Baker M.D. [address] [place] [phone] documented as of this encounter Visit Diagnoses Not on filedocumented in this encounter
--- OUTSIDE RECORDS SUMMARY | 2024-02-07 09:16 | XMS_ITS | Encounter Summary ---
Author Organization [facility] Address [address] [place] [address] Care Team Providers Care Trumpet Teacher Name Role Phone Unavailable Primary Care Provider Unavailabl e Reason for Visit * Radiation Therapy (Routine) - Authorized Specialty Diagnoses / Procedures Referred By Amandeep baez Referred To Contact Diagnoses Primary Malignant Neoplasm Of Prostate (HCC) Procedures Prior Auth Rad Tx [place] IMRT SIMPLE IMRT prostate Nathen Baker M.D. 200 [place] [address] [facility] Referral ID Status Reason Start Date Expiration Date V isits Requested Visits Authorized [id number] Authorized 10/16/2023 07/14/2024 36 36 Encounter Details Date Type Department Care Team (Latest Contact Info) Description 10/29/2023 9:32 AM CDT - 10/29/2023 11:59 PM CDT Hospital Encounter Department of Radiation Oncology in [place], [place] [address] [place] [phone] Nathen Baker M.D. [address] [place] [phone] Discharge Disposition: Home or Self Care Social History Tobacco Use Types Packs/Day Years Used Date Smoking Tobacco: Never Smokeless Tobacco: Never Alcohol Use Standard Drinks/Week Comments Yes 0 (1 standard drink = 0.6 oz pur e alcohol) rarely [facility] Utilities Answer Date Recorded In the past 12 months has e [employer], [employer], oil, or water [employer] threatened to shut off services in your [...] your living situation today? I have a [facility] place to live 06/28/2023 Sex and Gender Information Value Date Recorded Sex Assigned at Male 06/28/2023 6:50 PM ASSISTANT PASTRY CHEF Gender Identity Male 06/28/2023 6:50 PM ASSISTANT PASTRY CHEF Sexual Orientation Straight 06/28/2023 6: 50 PM ASSISTANT PASTRY CHEF documented as of this encounter Medications at [...] AM CDT Clinical Communication Virtual Review in [place], [place] 200 [place] [address] 04/01/2024 3:30 PM CDT Appointment Department of Radiation Oncology in [address] [phone] Nathen Baker M.D. [address] [place] [phone] documented as of this encounter Visit Diagnoses Not on filedocumented in this encounter
--- OUTSIDE RECORDS SUMMARY | 2024-02-07 09:16 | XMS_ITS | Encounter Summary ---
Author Organization [facility] Address [address] [place] [address] Care Team Providers Care Nut Former Name Role Phone Unavailable Primary Care Provider Unavailabl e Reason for Visit * Radiation Therapy (Routine) - Authorized Specialty Diagnoses / Procedures Referred By Amandeep baez Referred To Contact Diagnoses Primary Malignant Neoplasm Of Prostate (HCC) Procedures Prior Auth Rad Tx [place] IMRT SIMPLE IMRT prostate Nathen Baker M.D. 200 [place] [address] [facility] Referral ID Status Reason Start Date Expiration Date V isits Requested Visits Authorized [id number] Authorized 10/16/2023 07/14/2024 36 36 Encounter Details Date Type Department Care Team (Latest Contact Info) Description 10/31/2023 9:34 AM CDT - 10/31/2023 11:59 PM CDT Hospital Encounter Department of Radiation Oncology in [place], [place] [address] [place] [phone] Nathen Baker M.D. [address] [place] [phone] Discharge Disposition: Home or Self Care Social History Tobacco Use Types Packs/Day Years Used Date Smoking Tobacco: Never Smokeless Tobacco: Never Alcohol Use Standard Drinks/Week Comments Yes 0 (1 standard drink = 0.6 oz pur e alcohol) rarely [facility] Utilities Answer Date Recorded In the past 12 months has e [employer], [employer], oil, or water [employer] threatened to shut off services in your [...] your living situation today? I have a [facility] place to live 06/28/2023 Sex and Gender Information Value Date Recorded Sex Assigned at Male 06/28/2023 6:50 PM ANGLE ROLL OPERATOR Gender Identity Male 06/28/2023 6:50 PM ANGLE ROLL OPERATOR Sexual Orientation Straight 06/28/2023 6: 50 PM ANGLE ROLL OPERATOR documented as of this encounter Medications [...] AM CDT Clinical Communication Virtual Review in [place], [place] 200 [place] [phone] 04/01/2024 3:30 PM CDT Appointment Department of Radiation Oncology in [address] [phone] Nathen Baker M.D. [address] [place] [phone] documented as of this encounter Visit Diagnoses Not on filedocumented in this encounter
--- OUTSIDE RECORDS SUMMARY | 2024-02-07 09:16 | XMS_ITS | Clinical Summary ---
Author Organization [facility] Address [address] [place] [id number] Care Team Providers Care Credit Associate Name Role Phone No Ref-Primary, Physician Primary [...] 7+ (Tenivac) 12/05/2007,08/15/1998 TDAP Vaccine (Boostrix) 06/10/2012 Family History Medical History Relation Comments Breast Cancer Daughter Diabetes Father Heart Disease Father pacemaker Hypertension Father Heart Disease Maternal Grandfather Cerebrovascular Disease Maternal Grandmother Neurologic Disorder Maternal Grandmother [place] ONS Heart Disease Mother Hypertension Mother Cancer Paternal Grandmother Cancer Sister Diabetes Sister Relation Status Comments Daughter Father Alive Maternal Grandfather Maternal Grandmother Mother Alive Paternal Grandfather Paternal Grandmother Sister Social History Tobacco Use [...] 11/23/2013 10:19 AM CDT Plan of Treatment Health Maintenance Due Date Last Done Comments ADVANCE CARE PLANNING 1960 ANNUAL REVIEW OF HM ORDERS 1960 CT COLONOGRAPHY 1958 DIABETIC FOOT EXAM 1960 EYE EXAM 1960 FIT 1960 FLEX SIG 1958 sDNA (Cologuard) 1960 Pneumococcal Vaccine: 65+ Years (1 of 2 - PCV) 1964 HIV SCREENING 1973 HEPATITIS C SCREENING 1976 PSA 08/01/2010 08/01/2009, 06/14, 12/08/2004, Additional history exists LIPID 05/07/2014 05/07/2013, 05/16, 05/02/2011, Additional history exists MICROALBUMIN 05/07/2014 05/07/2013, 06/01/2012, 05/02/2011, Additional history exists A1C 05/16/2014 11/13/2013, 08/16, 05/07/2013, Additional history exists BMP 11/13/2014 11/13/2013, 04/15, 01/13/2013, Additional history exists RSV VACCINE ( & 60+) (1 - 1-dose 60+ series) 2018 COLONOSCOPY 01/04/2019 01/04/2009 COLORECTAL CANCER SCREENING 01/04/2019 DTAP/TDAP/TD IMMUNIZATION (2 - Td or Tdap) 06/10/2022 06/10/2012, 12/05/2007, 12/05/2007, Additional history exists FALL RISK ASSESSMENT 2023 MEDICARE ANNUAL WELLNESS VISIT 2023 COVID-19 Vaccine (5 - 2023-24 season) 2023 03/26/2022, 07/05/2021, 10/28/2020, Additional history exists PHQ-2 (once per calendar year) 2023 INFLUENZA VACCINE (#1) 2024 ZOSTER IMMUNIZATION Completed 10/19/2020, 08/30/2020, 08/19/2020, Additional history exists HPV IMMUNIZATION Aged Out No longer e ligible based on patient's age to complete this topic IPV IMMUNIZATION Aged Out No longer e ligible based on patient's age to complete this topic MENINGITIS IMMUNIZATION Aged Out No l onger eligible based on patient's age to complete this topic RSV MONOCLONAL ANTIBODY Aged Out No l onger eligible based on patient's age to complete this [...] PROSTATE SPEC ANTIGEN,SCREEN Routine 08/01/2009 9:37 AM FINANCIAL REPRESENTATIVE Screening PSA (Prostate Specific Antigen) COLONOSCOPY Routine 01/04/2009 10:55 AM CDT from Last 3 Months or Most Recently Relevant to Health Maintenance Results * (ABNORMAL) Hemoglobin A1c (11/13/2013 8:17 AM CDT) Hemoglobin A1C 7.9(H) 4.3 - 6.0 % [facility] Blood specimen (specimen) 11/13/2013 8:17 AM CDT 11/13/2013 8:22 AM CDT Hardeep Pickett MD LAB - BLOOD OR DERABLES Performing Organization Address [facility] Co de Phone Number [facility] [address] [place] [address] * (ABNORMAL) Basic metabolic panel (11/13/2013 8:17 AM CDT) Sodium 135 133 - 144 mmol/L [facility] Potassium 4.3 3.4 - 5.3 mmol/L [facility] Chloride 95 94 - 109 mmol/L [facility] Carbon Dioxide 27 20 - 32 mmol/L [facility] Anion Gap 13 6 - 17 mmol/L [facility] Glucose 177(H) 60 - 99 mg/dL [facility] Urea Nitrogen 14 7 - 30 mg/dL [facility] Creatinine 0.77 0.66 - 1.25 mg/dL [facility] GFR Estimate >90 >60 mL/min/1.7 m2 [facility] G[facility] Estimate If Black >90 >60 mL/min/1.7 m2 [facility] Calcium 8.8 8.5 - 10.4 mg/dL [facility] Blood specimen (specimen) 11/13/2013 8:17 AM CDT 11/13/2013 8:22 AM CDT Hardeep Pickett MD LAB - BLOOD OR DERABLES Performing Organization Address City/[facility]/ZIP Co de Phone Number [facility] [address] [place] [address] * Microalbumin quantitative random urine (05/07/2013 8:32 AM CDT) Creatinine Urine 154 mg/dL [facility] Albumin Urine mg/L <5 Urine Microalbumin lowest reportable value has been changed from 2 mg/L to 5 mg/L due to a methodology change on October. mg/L [facility] Albumin Urine mg/g Cr Unable to calculate 0 - 17 mg/g Cr [facility] Urine specimen (specimen) 05/07/2013 8:32 AM CDT 05/07/2013 8:34 AM CDT Hardeep Pickett MD LAB - URINE OR DERABLES [facility] * (ABNORMAL) Lipid Profile with reflex to direct LDL (05/07/2013 8:22 AM CDT) Cholesterol 122 0 - 200 mg/dL [facility] Comment: LDL Cholesterol is the primary guide to therapy. The NCEP recommends further evaluation of: patients with cholesterol greater than 200 mg/dL if additional risk factors are present, cholesterol greater than 240 mg/dL, triglycerides greater than 150 mg/dL, or HDL less than 40 mg/dL. Triglycerides 248(H) 0 - 150 mg/dL [facility] HDL Cholesterol 32(L) 40 - 110 mg/dL [facility] LDL Cholesterol Calculated 40 0 - 129 mg/dL [facility] Comment: LDL Cholesterol is the primary guide to therapy: LDL-cholesterol goal in high risk patients is <100 mg/dL and in very high risk patients is <70 mg/dL. VLDL-Cholesterol 50(H) 0 - 30 mg/dL [facility] Cholesterol/HDL Ratio 3.8 0.0 - 5.0 [facility] Blood specimen (specimen) 05/07/2013 8:22 AM CDT 05/07/2013 8:24 AM CDT Hardeep Pickett MD LAB - BLOOD OR DERABLES [place] [id number] [place], [place] [id number] * PROSTATE SPEC ANTIGEN,SCREEN (08/01/2009 9:37 AM FINANCIAL REPRESENTATIVE) PSA 2.60 0 - 4 ug/L [facility] 08/01/2009 9:37 AM FINANCIAL REPRESENTATIVE 08/01/2009 9:39 AM FINANCIAL REPRESENTATIVE Hardeep Pickett MD LABORATORY [facility] * COLONOSCOPY (01/04/2009 10:55 AM CDT) [...] ? saturations were monitored continuously. The ? [facility]-[id number] was introduced through the anus and ? [...] Recently Relevant to Health Maintenance Care Teams Credit Associate Relationship Specialty Start Date End Date No Ref-Primary, Physician PCP - General 05/02/22
--- OUTSIDE RECORDS SUMMARY | 2024-02-07 09:16 | XMS_ITS | Encounter Summary ---
Author Organization [facility] Address [address] [place] [address] Care Team Providers Care Processing Mgr Name Role Phone Unavailable Primary Care Provider Unavailabl e Reason for Visit * Radiation Therapy (Routine) - Authorized Specialty Diagnoses / Procedures Referred By Amandeep baez Referred To Contact Diagnoses Primary Malignant Neoplasm Of Prostate (HCC) Procedures Prior Auth Rad Tx [facility] IMRT SIMPLE IMRT prostate Nathen Baker M.D. [address] [place] [address] [facility] Referral ID Status Reason Start Date Expiration Date V isits Requested Visits Authorized [id number] Authorized 10/16/2023 07/14/2024 36 36 Encounter Details Date Type Department Care Team (Latest Contact Info) Description 11/05/2023 9:02 AM CDT - 11/05/2023 11:59 PM CDT Hospital Encounter Department of Radiation Oncology in [place], [place] [address] [place] [phone] Nathen Baker M.D. [address] [place] [phone] Discharge Disposition: Home or Self Care Social History Tobacco Use Types Packs/Day Years Used Date Smoking Tobacco: Never Smokeless Tobacco: Never Alcohol Use Standard Drinks/Week Comments Yes 0 (1 standard drink = 0.6 oz pur e alcohol) rarely [facility] Utilities Answer Date Recorded In the past 12 months has e [employer], [employer], oil, or water [employer] threatened to shut off services in your [...] Sex Assigned at Male 06/28/2023 6:50 PM BROOM MACHINE OPERATOR Gender Identity Male 06/28/2023 6:50 PM BROOM MACHINE OPERATOR Sexual Orientation Straight 06/28/2023 6: 50 PM BROOM MACHINE OPERATOR documented as of this encounter Medications [...] AM CDT Clinical Communication Virtual Review in [place], [place] [address] [place] [address] 04/01/2024 3:30 PM CDT Appointment Department of Radiation Oncology in [address] [phone] Nathen Baker M.D. [address] [place] [phone] documented as of this encounter Visit Diagnoses Not on filedocumented in this encounter
--- OUTSIDE RECORDS SUMMARY | 2024-02-07 09:16 | XMS_ITS | Encounter Summary ---
Author Organization [facility] Address [address] [place] [address] Care Team Providers Care Curbing Stonecutter Name Role Phone Hardeep Pickett MD Primary Care Provider None Primary Care Provider Unavailabl e No Ref-Primary, Physician Primary Care Provider Reason for Visit * Reason Onset Date Comments MyChart Communication 06/08/2013 Encounter Details Date Type Department Care Team (Latest Contact Info) Description 06/08/[address] [phone] Hardeep Pickett MD [address] [place] [phone] MyChart Communication Social History Tobacco Use Types Packs/Day Years Used Date Smoking Tobacco: Never Smokeless Tobacco: Never Alcohol Use Standard Drinks/Week Comments Yes 0 (1 standard drink = 0.6 oz pur e alcohol) RARE Sex and Gender Information Value Date Recorded Sex Assigned at Not on file Gender Identity Not on file Sexual Orientation Not on file documented as of this encounter Plan of Treatment Not on file documented as of this encounter Visit Diagnoses Not on filedocumented in this encounter Care Teams Curbing Stonecutter Relationship Specialty Start Date End Date Hardeep Pickett MD PCP - General 01/26/08 08/31/14 None PCP - General 09/01/14 03/14/17 No Ref-Primary, Physician PCP - General 05/02/22 documented as of this encounter
== END 2024-02-07 09:11 | disposition home or self-care (01) ==
PROVIDERS: PCP Family Medicine; Visit Provider Family Medicine
DX: E11.9 Type 2 diabetes mellitus without complications (principal); I10 Essential (primary) hypertension; E78.5 Hyperlipidemia, unspecified
CPT/HCPCS: 80053

== ENCOUNTER 2024-03-23 13:36 | Outpatient (REF) | payer BC, MEDICARE, SELFPAY ==
--- OUTSIDE RECORDS SUMMARY | 2024-03-23 13:39 | XMS_ITS | Clinical Summary ---
Author Organization [facility] Address [address] [place] [address] Care Team Providers Care Director Of Education And Training Name Role Phone Unavailable Primary Care Provider Unavailabl e Source Comments Patient records contain information from all sites at [facility]. For routine questions regarding patient records, call [phone] during business hours, M-F 8:00 AM - 5:00 PM Central Time. Record requests for emergency care only can be directed to [phone] at any time.[facility] Allergies Active Allergy Reactions Criticality Noted [...] Prostate 07/01/2023 Primary Malignant Neoplasm Of Prostate 2 Cancer Staging:Pathologic stage from 07/11/2022: pT2, cN0, cM0, PSA: 6.5, Grade Group: 2 - Unsigned Encounters Date Type Department Care Team Description 01/09/2024 Clinical Communication Department of Radiation Oncology in [place], [place] [address] [place] [address] Nathen Baker M.D. from Last 3 Months Family History Medical [...] Recorded In the past 12 months has [employer], gas, oil, or water [employer] threatened to shut off services in your [...] your living situation today? I have a [employer] place to live 06/28/2023 Sex and Gender Information Value Date Recorded Sex Assigned at Male 06/28/2023 6:50 PM ADULT EDUCATION PROFESSIONAL Gender Identity Male 06/28/2023 6:50 PM ADULT EDUCATION PROFESSIONAL Sexual Orientation Straight 06/28/2023 6: 50 PM ADULT EDUCATION PROFESSIONAL Last Filed Vital Signs Vital Sign Reading [...] AM CDT Clinical Communication Virtual Review in [place], [place] [address] [place] [address] 04/01/2024 3:30 PM CDT Appointment Department of Radiation Oncology in [address] [phone] Nathen Baker M.D. [address] [place] [address] Health Maintenance Due Date Last Done Comments CT Colonography 1960 Cologuard 1960 Hepatitis C Screening 1960 Pneumococcal vaccine (65+ years) (1 of 2 - PCV) 1964 DTaP,Tdap,and Td Vaccines (3 - Td or Tdap) 06/10/2022 06/10/2012, 12/05/2007, 12/05/2007, Additional history exists Colonoscopy 07/14/2022 07/14/2017, 01/04/2009 Colorectal Cancer Surveillance 07/14/2022 Creatinine Level (Kidney Function Test) 07/12/2023 07/12/2022 Potassium Level 07/12/2023 07/12/2022 Sodium Level 07/12/2023 07/12/2022 Depression Screening (Annual PHQ-2) 07/15/2023 COVID-19 Vaccine ( season) 2024 03/26/2022, 07/05/2021, 10/28/2020, Additional history exists Fasting Glucose for Diabetes Screening 07/11/2026 07/11/2023, 07/12/2022 Zoster Vaccines Completed 10/19/2020, 08/15, 08/19/2020, Additional history exists Fall Risk Screen (Annual) Completed 10/25/2023 HPV Vaccines Aged Out No longer eligi ble based on patient's age to complete this topic Procedures Procedure Name Priority Date/Time Associated Diagnosis Comments GLUCOSE POCT, B Routine 07/11/2023 2:50 PM ADULT EDUCATION PROFESSIONAL from Last 3 Months or Most Recently Relevant to Health Maintenance Results * (ABNORMAL) Glucose, POCT (07/11/2023 2:50 PM ADULT EDUCATION PROFESSIONAL) Glucose, POCT, B 212(H) 70 - 140 mg/dL 07/11/2023 2:54 PM ADULT EDUCATION PROFESSIONAL PCMO Site Capillary 07/11/2023 2:54 PM ADULT EDUCATION PROFESSIONAL PCMO Blood 07/11/2023 2:50 PM ADULT EDUCATION PROFESSIONAL 07/11/2023 2:54 PM ADULT EDUCATION PROFESSIONAL Unknown Provider LAB POCT ORDERABLES- MANUAL POC [facility] [address] [place] [address], [facility] PCMO [facility] POC [address] [place] [address] from Last 3 Months or Most Recently Relevant to Health Maintenance
--- OUTSIDE RECORDS SUMMARY | 2024-03-23 13:39 | XMS_ITS | Referral Summary ---
Author Organization [facility] Address [address] [place] [address] Care Team Providers Care Web Database Developer Name Role Phone No Ref-Primary, Physician Primary [...] PROSTATE SPEC ANTIGEN,SCREEN Routine 08/01/2009 9:37 AM PIANO CASE MAKER Screening PSA (Prostate Specific Antigen) COLONOSCOPY Routine 01/04/2009 10:55 AM CDT from Last 3 Months or Most Recently Relevant to Health Maintenance Results * (ABNORMAL) Hemoglobin A1c (11/13/2013 8:17 AM CDT) Hemoglobin A1C 7.9(H) 4.3 - 6.0 % [facility] Blood specimen (specimen) 11/13/2013 8:17 AM CDT 11/13/2013 8:22 AM CDT Hardeep Pickett MD LAB - BLOOD OR DERABLES [facility] [address] [place] [address] * (ABNORMAL) Basic metabolic panel (11/13/2013 8:17 AM CDT) Sodium 135 133 - 144 mmol/L [facility] Potassium 4.3 3.4 - 5.3 mmol/L [facility] Chloride 95 94 - 109 mmol/L [facility] Carbon Dioxide 27 20 - 32 mmol/L [facility] Anion Gap 13 6 - 17 mmol/L [facility] Glucose 177(H) 60 - 99 mg/dL [facility] Urea Nitrogen 14 7 - 30 mg/dL [facility] Creatinine 0.77 0.66 - 1.25 mg/dL [facility] GFR Estimate >90 >60 mL/min/1.7 m2 [facility] GFR Estimate If Black >90 >60 mL/min/1.7 m2 [facility] Calcium 8.8 8.5 - 10.4 mg/dL [facility] Blood specimen (specimen) 11/13/2013 8:17 AM CDT 11/13/2013 8:22 AM CDT Hardeep Pickett MD LAB - BLOOD OR DERABLES Performing Organization Address City/[facility]/ZIP Co de Phone Number [facility] [address] [place], [place] [phone] * Microalbumin quantitative random urine (05/07/2013 8:32 AM CDT) Creatinine Urine 154 mg/dL [facility] Albumin Urine mg/L <5 Urine Microalbumin lowest reportable value has been changed from 2 mg/L to 5 mg/L due to a methodology change on October. mg/L [facility] Albumin Urine mg/g Cr Unable to calculate 0 - 17 mg/g Cr [facility] Urine specimen (specimen) 05/07/2013 8:32 AM CDT 05/07/2013 8:34 AM CDT Hardeep Pickett MD LAB - URINE OR DERABLES [facility] * (ABNORMAL) Lipid Profile with reflex to direct LDL (05/07/2013 8:22 AM CDT) Cholesterol 122 0 - 200 mg/dL [facility] Comment: LDL Cholesterol is the primary guide to therapy. The NCEP recommends further evaluation of: patients with cholesterol greater than 200 mg/dL if additional risk factors are present, cholesterol greater than 240 mg/dL, triglycerides greater than 150 mg/dL, or HDL less than 40 mg/dL. Triglycerides 248(H) 0 - 150 mg/dL [facility] HDL Cholesterol 32(L) 40 - 110 mg/dL [facility] LDL Cholesterol Calculated 40 0 - 129 mg/dL [facility] Comment: LDL Cholesterol is the primary guide to therapy: LDL-cholesterol goal in high risk patients is <100 mg/dL and in very high risk patients is <70 mg/dL. VLDL-Cholesterol 50(H) 0 - 30 mg/dL [facility] Cholesterol/HDL Ratio 3.8 0.0 - 5.0 [facility] Blood specimen (specimen) 05/07/2013 8:22 AM CDT 05/07/2013 8:24 AM CDT Hardeep Pickett MD LAB - BLOOD OR DERABLES Performing Organization Address City/[facility]/ZIP Co de Phone Number [address] [address] * PROSTATE SPEC ANTIGEN,SCREEN (08/01/2009 9:37 AM PIANO CASE MAKER) PSA 2.60 0 - 4 ug/L [facility] 08/01/2009 9:37 AM PIANO CASE MAKER 08/01/2009 9:39 AM PIANO CASE MAKER Hardeep Pickett MD LABORATORY [facility] * COLONOSCOPY (01/04/2009 10:55 AM CDT) [...] ? saturations were monitored continuously. The ? [id number] was introduced through the anus and ? [...] Recently Relevant to Health Maintenance Care Teams Web Database Developer Relationship Specialty Start Date End Date No Ref-Primary, Physician PCP - General 05/02/22
--- OUTSIDE RECORDS SUMMARY | 2024-03-23 13:39 | XMS_ITS | Referral Summary ---
Author Organization [facility] Address [address] [place] [address] Care Team Providers Care Woolen Tester Name Role Phone Unavailable Primary Care Provider Unavailabl e Source Comments Patient records contain information from all sites at [facility]. For routine questions regarding patient records, call [phone] during business hours, M-F 8:00 AM - 5:00 PM Central Time. Record requests for emergency care only can be directed to [phone] at any time.[facility] Encounters Date Type Department Care Team Description 01/09/2024 Clinical Communication Department of Radiation Oncology in [place], [place] [address] [place] [phone] Nathen Baker M.D. from Last 3 Months Allergies Active Allergy [...] = 0.6 oz pur e alcohol) rarely [facility] Utilities Answer Date Recorded In the past 12 months has [employer], [employer], or water [employer] threatened to shut off services in your [...] Sex Assigned at Male 06/28/2023 6:50 PM PAINTER ORDNANCE Gender Identity Male 06/28/2023 6:50 PM PAINTER ORDNANCE Sexual Orientation Straight 06/28/2023 6: 50 PM PAINTER ORDNANCE Last Filed Vital Signs Vital Sign Reading [...] AM CDT Clinical Communication Virtual Review in [place], [place] [address] [place] [address] 04/01/2024 3:30 PM CDT Appointment Department of Radiation Oncology in [place], [place] [address] [place] [phone] Nathen Baker M.D. [address] [place] [address] Procedures Procedure Name Priority Date/Time Associated Diagnosis Comments GLUCOSE POCT, B Routine 07/11/2023 2:50 PM PAINTER ORDNANCE from Last 3 Months or Most Recently Relevant to Health Maintenance Results * (ABNORMAL) Glucose, POCT (07/11/2023 2:50 PM PAINTER ORDNANCE) Glucose, POCT, B 212(H) 70 - 140 mg/dL 07/11/2023 2:54 PM PAINTER ORDNANCE PCMO Site Capillary 07/11/2023 2:54 PM PAINTER ORDNANCE PCMO Blood 07/11/2023 2:50 PM PAINTER ORDNANCE 07/11/2023 2:54 PM PAINTER ORDNANCE Unknown Provider LAB POCT ORDERABLES- MANUAL POC [facility] [address] [place] [address], [place] PCMO [facility] POC [address] [place] [address] from Last 3 Months or Most Recently Relevant to Health Maintenance
--- OUTSIDE RECORDS SUMMARY | 2024-03-23 13:39 | XMS_ITS ---
Author Organization [facility] Address [address] [place] [address] Care Team Providers Care Folding Machine Feeder Name Role Phone Unavailable Unavailable Unavailable Surgery Details Not on file Complications Check Surgery Details section. Procedure Estimated Blood Loss Check Surgery Details section. Procedure Findings Check Surgery Details section. Procedure Specimens Taken Check Surgery Details section.
--- OUTSIDE RECORDS SUMMARY | 2024-03-23 13:39 | XMS_ITS | Clinical Summary ---
Author Organization [facility] Address [place], [place] [address] Care Team Providers Care Supervisor Evaporator Name Role Phone Toi Schwartz MD Primary [...] Comments Blood Pressure 117/61 07/12/2022 7:00 AM OPS MANAGER Pulse 79 07/12/2022 7:00 AM OPS MANAGER Temperature 36.7 ??C (98.1 ??F) 07/12/2022 7:00 AM CS T Respiratory Rate 14 07/12/2022 7:00 AM OPS MANAGER Oxygen Saturation 93% 07/12/2022 7:00 AM OPS MANAGER Inhaled Oxygen Concentration - - Weight 97.7 kg (215 lb 4.8 oz) 07/12/2022 6:00 A M OPS MANAGER Height 167.6 cm (5' 6) 07/11/2022 6:47 AM OPS MANAGER Body Mass Index 34.75 07/11/2022 6:47 AM OPS MANAGER Plan of Treatment Health Maintenance Due Date Last Done Comments Tdap 1969 Depression screening for age 12+ 1970 BMI (ht and wt on same day) for age 18+ 1976 Hepatitis C screening for ag e 18-79 1976 Tetanus booster 1978 Colonoscopy through age 75 2003 Lipids for age 45-75 2003 Zoster (shingles) series for age 50+ (1 of 2) 2008 Pneumococcal series for age 65+ (1 of 1 - PCV) 2023 COVID-19 vaccine series ( - 2022- season) 2024 03/26/2022, 07/05/2021, 10/28/2020, Additional history exists Influenza for age 65+ 03/15/2024 Advance Directives * Full Code (Latest Code Status on File) Date Activated Date Inactivated Comments 07/11/2022 5:59 AM 07/12/2022 3:22 PM Question Answer Comments Code Status Discussion: Not Discussed Care Teams Supervisor Evaporator Relationship Specialty Start Date End Date Toi Schwartz MD [address] [place] [address] PCP - General Family Practice 06/22/22
--- OUTSIDE RECORDS SUMMARY | 2024-03-23 13:39 | XMS_ITS ---
Author Organization [facility] Address [address] [place] [address] Care Team Providers Care Plastic And Reconstructive Surgeon Name Role Phone Unavailable Primary Care Provider [...] Treated Prescribed Fraction Dose Prescribed Total Dose [id number] 12/03/2023 43 7 of 7 215 cGy 1,505 cGy [id number] 11/22/2023 32 25 of 25 215 cGy 5,375 cGy Reference Point Last Treated On Elapsed Days Session Dose Total Dose [id number] 12/03/2023 43 215 cGy 6,880 cGy
--- OUTSIDE RECORDS SUMMARY | 2024-03-23 13:39 | XMS_ITS | Clinical Summary ---
Author Organization [facility] Address [address] [place] [id number] Care Team Providers Care Wood [employer] Wood Products Labourer Name Role Phone No Ref-Primary, Physician Primary [...] Years (1 of 2 - PCV) 1966 HEPATITIS C SCREENING 1976 PSA 08/01/2010 08/01/2009, 06/14, 12/08/2004, Additional history exists LIPID 05/07/2014 05/07/2013, 05/16, 05/02/2011, Additional history exists MICROALBUMIN 05/07/2014 05/07/2013, 06/01/2012, 05/02/2011, Additional history exists A1C 05/16/2014 11/13/2013, 08/16, 05/07/2013, Additional history exists BMP 11/13/2014 11/13/2013, 04/15, 01/13/2013, Additional history exists RSV VACCINE (1 - 1-dose 60+ series) 2018 COLONOSCOPY 01/04/2019 01/04/2009 COLORECTAL CANCER SCREENING 01/04/2019 DTAP/TDAP/TD IMMUNIZATION (2 - Td or Tdap) 06/10/2022 06/10/2012, 12/05/2007, 12/05/2007, Additional history exists FALL RISK ASSESSMENT 2023 MEDICARE ANNUAL WELLNESS VISIT 2023 PHQ-2 (once per calendar year) 2023 COVID-19 Vaccine ( season) 2024 03/26/2022, 07/05/2021, 10/28/2020, Additional history exists INFLUENZA VACCINE (#1) 2024 ZOSTER IMMUNIZATION Completed [...] PROSTATE SPEC ANTIGEN,SCREEN Routine 08/01/2009 9:37 AM NOVELTY BALLOON ASSEMBLER AND PACKER Screening PSA (Prostate Specific Antigen) COLONOSCOPY Routine 01/04/2009 10:55 AM CDT from Last 3 Months or Most Recently Relevant to Health Maintenance Results * (ABNORMAL) Hemoglobin A1c (11/13/2013 8:17 AM CDT) Hemoglobin A1C 7.9(H) 4.3 - 6.0 % [facility] Blood specimen (specimen) 11/13/2013 8:17 AM CDT 11/13/2013 8:22 AM CDT Hardeep Pickett MD LAB - BLOOD OR DERABLES Performing Organization Address [facility] Co de Phone Number [facility] [address] [place], [place] [phone] * (ABNORMAL) Basic metabolic panel (11/13/2013 8:17 AM CDT) Sodium 135 133 - 144 mmol/L [facility] Potassium 4.3 3.4 - 5.3 mmol/L [facility] Chloride 95 94 - 109 mmol/L [facility] Carbon Dioxide 27 20 - 32 mmol/L [facility] Anion Gap 13 6 - 17 mmol/L [facility] Glucose 177(H) 60 - 99 mg/dL [facility] Urea Nitrogen 14 7 - 30 mg/dL [facility] Creatinine 0.77 0.66 - 1.25 mg/dL [facility] GFR Estimate >90 >60 mL/min/1.7 m2 [facility] GFR Estimate If Black >90 >60 mL/min/1.7 m2 [facility] Calcium 8.8 8.5 - 10.4 mg/dL [facility]3] Blood specimen (specimen) 11/13/2013 8:17 AM CDT 11/13/2013 8:22 AM CDT Hardeep Pickett MD LAB - BLOOD OR DERABLES Performing Organization Address City/[facility] Co de Phone Number [facility]3] [address] [place] [address] * Microalbumin quantitative random urine (05/07/2013 8:32 AM CDT) Creatinine Urine 154 mg/dL [facility] Albumin Urine mg/L <5 Urine Microalbumin lowest reportable value has been changed from 2 mg/L to 5 mg/L due to a methodology change on October. mg/L [facility] Albumin Urine mg/g Cr Unable to calculate 0 - 17 mg/g Cr [facility] Urine specimen (specimen) 05/07/2013 8:32 AM CDT 05/07/2013 8:34 AM CDT Hardeep Pickett MD LAB - URINE OR DERABLES [facility] * (ABNORMAL) Lipid Profile with reflex to direct LDL (05/07/2013 8:22 AM CDT) Cholesterol 122 0 - 200 mg/dL [facility]3] Comment: LDL Cholesterol is the primary guide to therapy. The NCEP recommends further evaluation of: patients with cholesterol greater than 200 mg/dL if additional risk factors are present, cholesterol greater than 240 mg/dL, triglycerides greater than 150 mg/dL, or HDL less than 40 mg/dL. Triglycerides 248(H) 0 - 150 mg/dL [facility]3] HDL Cholesterol 32(L) 40 - 110 mg/dL [facility]3] LDL Cholesterol Calculated 40 0 - 129 mg/dL [facility]3] Comment: LDL Cholesterol is the primary guide to therapy: LDL-cholesterol goal in high risk patients is <100 mg/dL and in very high risk patients is <70 mg/dL. VLDL-Cholesterol 50(H) 0 - 30 mg/dL [facility]3] Cholesterol/HDL Ratio 3.8 0.0 - 5.0 [facility]3] Blood specimen (specimen) 05/07/2013 8:22 AM CDT 05/07/2013 8:24 AM CDT Hardeep Pickett MD LAB - BLOOD OR DERABLES Performing Organization Address City/[facility]/ZIP Co de Phone Number [address] [address] * PROSTATE SPEC ANTIGEN,SCREEN (08/01/2009 9:37 AM NOVELTY BALLOON ASSEMBLER AND PACKER) PSA 2.60 0 - 4 ug/L [facility] 08/01/2009 9:37 AM NOVELTY BALLOON ASSEMBLER AND PACKER 08/01/2009 9:39 AM NOVELTY BALLOON ASSEMBLER AND PACKER Hardeep Pickett MD LABORATORY [facility] * COLONOSCOPY (01/04/2009 10:55 AM [...] ? saturations were monitored continuously. The ? [facility]-[id number] was introduced through the anus and ? [...] Recently Relevant to Health Maintenance Care Teams [employer] Labourer Relationship Specialty Start Date End Date No Ref-Primary, Physician PCP - General 05/02/22
--- OUTSIDE RECORDS SUMMARY | 2024-03-23 13:39 | XMS_ITS | Encounter Summary ---
Author Organization [facility] Address [address] [place] [address] Care Team Providers Care Salesperson Neckties Name Role Phone Unavailable Primary Care Provider Unavailabl e Encounter Details Date Type Department Care Team (Late st Contact Info) Description 12/03/2023 Documentation Department of Radiation Oncology in [place], [place] [address] [place] [address] Nathen Baker M.D. [address] [place] [phone] Social History Tobacco Use Types Packs/Day Years Used Date Smoking Tobacco: Never Smokeless Tobacco: Never Alcohol Use Standard Drinks/Week Comments Yes 0 (1 standard drink = 0.6 oz pur e alcohol) rarely [facility] Utilities Answer Date Recorded In the past 12 months has [employer], [employer], oil, or water [employer] threatened to shut off services in your [...] your living situation today? I have a [facility] place to live 06/28/2023 Sex and Gender Information Value Date Recorded Sex Assigned at Male 06/28/2023 6:50 PM BOTTOM LOADER Gender Identity Male 06/28/2023 6:50 PM BOTTOM LOADER Sexual Orientation Straight 06/28/2023 6: 50 PM BOTTOM LOADER documented as of this encounter Miscellaneous Notes * Radiation Completion Notes - Anni Godwin R.N. - 12/03/2023 11:59 PM CDT DIAGNOSIS: 1. Primary Malignant Neoplasm Of Prostate (HCC) Attending Physician: Nathen Baker M.D. ([phone]) Treatment Intent: Curative Concomitant Therapy: Hormonal Therapy Single Plan Treatment Course: 1xProsLN Plan ID Fractions Dose / Fraction (cGy) Dose Treated (cGy) Dose Planned (cGy) First Treatment Last Treatment Elapsed Days [id number] [phone] 10/21/2023 11/22/2023 32 [id number] 215 1505 1505 11/25/2023 12/03/2023 8 Treatment [...] pre-visitPSA and testosterone labs are drawn at [facility] in [place]. Signed by: Anni Godwin R.N., 12/16/2023 2:59 PM CDT [facility] [address] [place] [address] documented in this encounter Plan of Treatment Upcoming Encounters Date Type Department Care Team (Latest Contact Info) Description 03/30/2024 9:45 AM CDT Clinical Communication Virtual Review in [address] [phone] 04/01/2024 3:30 PM CDT Appointment Department of Radiation Oncology in [address] [phone] Nathen Baker M.D. [address] [place] [phone] documented as of this encounter Visit Diagnoses Diagnosis Primary Malignant Neoplasm Of Prostate (HCC)- Primary documented in this encounter
--- OUTSIDE RECORDS SUMMARY | 2024-03-23 13:39 | XMS_ITS | Encounter Summary ---
Author Organization [facility] Address [address] [place] [address] Care Team Providers Care Database Administration Associate Name Role Phone Hardeep Pickett MD Primary Care Provider None Primary Care Provider Unavailabl e No Ref-Primary, Physician Primary Care Provider Reason for Visit * Reason Onset Date Comments MyChart Communication 06/08/2013 Encounter Details Date Type Department Care Team (Latest Contact Info) Description 06/08/[address] [phone] Hardeep Pickett MD [address] [place] [phone] MyChart Communication Social History Tobacco Use Types [...] on filedocumented in this encounter Care Teams Database Administration Associate Relationship Specialty Start Date End Date Hardeep Picektt MD PCP - General 01/26/08 08/31/14 None PCP - General 09/01/14 03/14/17 No Ref-Primary, Physician PCP - General 05/02/22 documented as of this encounter
--- OUTSIDE RECORDS SUMMARY | 2024-03-23 13:39 | XMS_ITS | Encounter Summary ---
Author Organization [facility] Address [address] [place] [address] Care Team Providers Care Patient Clerical Assistant Name Role Phone Unavailable Primary Care Provider Unavailabl e Encounter Details Date Type Department Care Team (Late st Contact Info) Description 01/09/2024 Clinical Communication Department of Radiation Oncology in [place], [place] [address] [place] [address] Nathen Baker M.D. [address] [place] [address] Social History Tobacco Use Types Packs/Day Years Used Date Smoking Tobacco: Never Smokeless Tobacco: Never Alcohol Use Standard Drinks/Week Comments Yes 0 (1 standard drink = 0.6 oz pur e alcohol) rarely [facility] Utilities Answer Date Recorded In the past 12 months has [employer], gas, oil, or water [employer] threatened to shut off services in your [...] your living situation today? I have a [facility] place to live 06/28/2023 Sex and Gender Information Value Date Recorded Sex Assigned at Male 06/28/2023 6:50 PM ANALYTICS CONSULTANT Gender Identity Male 06/28/2023 6:50 PM ANALYTICS CONSULTANT Sexual Orientation Straight 06/28/2023 6: 50 PM ANALYTICS CONSULTANT documented as of this encounter Plan of Treatment Upcoming Encounters Date Type Department Care Team (Latest Contact Info) Description 03/30/2024 9:45 AM CDT Clinical Communication Virtual Review in [place], [place] [address] [place] [address] 04/01/2024 3:30 PM CDT Appointment Department of Radiation Oncology in [place] [id number] [place] [phone] Nathen Baker M.D. [address] [place] [phone] documented as of this encounter Visit Diagnoses Not on filedocumented in this encounter
[2024-03-23 16:21] LABS: PSA Diagnostic* < 0.06 ng/mL (0.10-4.00)
[2024-03-26 02:36] LABS: Testosterone, Adult Male 3 ng/dL (300-720)
== END 2024-03-23 13:37 | disposition home or self-care (01) ==
LOC: NPINS 13:36
PROVIDERS: PCP Family Medicine; Visit Provider Internal Medicine
DX: R97.21 Rising PSA following treatment for malignant neoplasm of prostate (principal)
CPT/HCPCS: 84153; 84403

== ENCOUNTER 2024-05-25 08:13 | Outpatient (CLI) | payer BC, MEDICARE, SELFPAY ==
--- OUTSIDE RECORDS SUMMARY | 2024-05-26 09:36 | XMS_ITS ---
Author Organization [facility] Address [address] [place] [address] Care Team Providers Care Automotive Maintenance Technician Name Role Phone Unavailable Primary Care [...] Treated Prescribed Fraction Dose Prescribed Total Dose [id number] 12/03/2023 43 7 of 7 215 cGy 1,505 cGy [id number] 11/22/2023 32 25 of 25 215 cGy 5,375 cGy Reference Point Last Treated On Elapsed Days Session Dose Total Dose [id number] 12/03/2023 43 215 cGy 6,880 cGy
--- OUTSIDE RECORDS SUMMARY | 2024-05-26 09:36 | XMS_ITS | Referral Summary ---
Author Organization [facility] Address [address] [place] [address] Care Team Providers Care Scheduling Coordinator Name Role Phone Unavailable Primary Care Provider Unavailabl e Source Comments Patient records contain information from all sites at [facility]. For routine questions regarding patient records, call [phone] during business hours, M-F 8:00 AM - 5:00 PM Central Time. Record requests for emergency care only can be directed to [phone] at any time.[facility] Encounters Date Type Department Care Team Description 04/01/2024 3:01 PM CDT - 04/02/2024 1:52 PM CDT Hospital Encounter Department of Radiation Oncology in [address] [phone] Nathen Baker M.D. Rising Prostate Specific Antigen Following Treatment For Malignant Cancer Of Prostate (Primary Dx) 03/30/2024 9:45 AM CDT Clinical Communication Virtual Review in [place], [place] [address] [place] [address] Pre-visit Intake from Last 3 Months Allergies Active Allergy Reactions Criticality Noted Date Comments Flu Vac 2015 (65 Up)-Mf59c(Pf) Other (see comments) 07/04/2023 Haemophilus Influenzae Type B Other (see comments) 01/26/2008 Influenza Virus Vaccines Other (see comments) 0 03/29/2022 Yellow Fever Vaccine Live Other (see comments) 01/26/2008 Medications aspirin 81 mg chewable tablet Chew 81 mg. 2 Active Contour Test Strips Use to check blood sugars twice daily.* 3 Active calcium carbonate-mu min D3 1,500 mg (600 mg calcium)-5 mcg (200 Unit) per tablet daily. Active glipiZIDE (GLUCOTROL XL) 10 mg 24 hr tablet TAKE ONE TABLET BY MOUTH TWICE DAILY* Active lisinopril-hyd roCHLOROthiazi de (PRINZIDE,ZEST ORETIC) 20-25 mg per tablet take 1 tab orally daily* 2 Active metFORMIN (GLUCOPHAGE) 500 mg tablet Active Ozempic 1 mg/dose (4 mg/3 mL) injection INJECT 1 mg (0.75 mL) subcutaneously every week* Active simvastatin (ZOCOR) 20 mg tablet Take 1 tablet by mouth at bedtime. 4 Active lancets 1 test by not applicable route daily. ACCU-CHEK MULTICLIX LANCETS [facility] 8 Active simvastatin (Zocor) 20 mg tablet Take 20 mg by mouth at bedtime. 4 Active Active Problems Problem Noted Date Diagnosed Date Rising Prostate Specific Ant igen Following Treatment For Malignant Cancer Of Prostate 07/01/2023 Primary Malignant Neoplasm Of Prostate 2 Cancer Staging:Pathologic stage from 07/11/2022: pT2, cN0, cM0, PSA: 6.5, Grade Group: 2 - Unsigned Social History Tobacco Use Types Packs/Day Years Used Date Smoking Tobacco: Never Passive Smoke Exposure: Past Smokeless Tobacco: Never Tobacco Cessation:Counseling Given: Not Answered Passive Exposure Comments:Childhood & Adulthood (employment) Alcohol Use Standard Drinks/Week Comments Yes 0 (1 standard drink = 0.6 oz pur e alcohol) rarely [facility] Utilities Answer Date Recorded In the past 12 months has e [employer], gas, oil, or water [employer] threatened to shut off services in your [...] living? No 06/28/2023 Nutrition Answer Date Recorded On average, how many serving s of [...] your living situation today? I have a [facility] place to live 06/28/2023 Sex and Gender Information Value Date Recorded Sex Assigned at Male 06/28/2023 6:50 PM FLOOR CARE SPECIALIST Legal Sex Male 10:17 AM FLOOR CARE SPECIALIST Gender Identity Male 06/28/2023 6:50 PM FLOOR CARE SPECIALIST Sexual Orientation Straight 06/28/2023 6: 50 PM FLOOR CARE SPECIALIST Last Filed Vital Signs Vital Sign Reading Time Taken Comments Blood Pressure 117/61 04/01/2024 3:21 PM CDT Pulse 91 04/01/2024 3:21 PM CDT Temperature 37.1 ??C (98.7 ??F) 04/01/2024 3:21 PM CD T Respiratory Rate - - Oxygen Saturation - - Inhaled Oxygen Concentration - - Weight 97.9 kg (215 lb 13.3 oz) 04/01/2024 3:21 PM CDT Height - - Body Mass Index - - Plan of Treatment Not on file Procedures Procedure Name Priority Date/Time Associated Diagnosis Comments GLUCOSE POCT, B Routine 07/11/2023 2:50 PM FLOOR CARE SPECIALIST from Last 3 Months or Most Recently Relevant to Health Maintenance Results * (ABNORMAL) Glucose, POCT (07/11/2023 2:50 PM FLOOR CARE SPECIALIST) Glucose, POCT, B 212(H) 70 - 140 mg/dL 07/11/2023 2:54 PM FLOOR CARE SPECIALIST PCMO Site Capillary 07/11/2023 2:54 PM FLOOR CARE SPECIALIST PCMO Blood 07/11/2023 2:50 PM FLOOR CARE SPECIALIST 07/11/2023 2:54 PM FLOOR CARE SPECIALIST us Unknown Provider LAB POCT ORDERABLES-MANUAL Keely l Result [facility] [address] [place] [address], [facility] POC [address] [place] [address] from Last 3 Months or Most Recently Relevant to Health Maintenance Insurance [facility] [place] [address] MEDICARE
--- OUTSIDE RECORDS SUMMARY | 2024-05-26 09:36 | XMS_ITS | Clinical Summary ---
Author Organization [facility] Address [address] [place] [address] Care Team Providers Care Client Support Professional Name Role Phone No Ref-Primary, Physician Primary Care Provider Allergies Active Allergy Reactions Criticality Noted Date Comments Flu Virus Vaccine 01/26/2008 Yellow Fever Vaccine 01/26/2008 Medications ACCU-CHEK MULTICLIX LANCETS MISCIndications:T ype II or unspecified type diabetes mellitus without mention of complication, not stated as uncontrolled test QID as directed 3 months 1 year 8 Active ASPIRIN 81 MG OR TABSIndications:T ype II or unspecified type diabetes mellitus without mention of complication, not stated as uncontrolled ONE DAILY 0 0 8 Active FISH OIL 1000 MG PO CAPS 1 daily Active CALCIUM + D PO 1 daily Activ e glucose blood test strips stripIndications: Type II or unspecified type diabetes mellitus without mention of complication, not stated as uncontrolled 1 strip by In Vitro route 4 times daily (before meals and nightly) test QID as directed. 3 Month 0 3 Active metFORMIN (GLUCOPHAGE-XR) 500 MG 24 hr tabletIndications :Type 2 diabetes, HbA1c goal < 7% (H) Take 2 tablets (1,000 mg) by mouth 2 times daily (with meals) 360 tablet 1 4 Active glipiZIDE (GLUCOTROL) 10 MG tabletIndications :Type 2 diabetes, HbA1c goal < 7% (H) Take 1 tablet (10 mg) by mouth 2 times daily (before meals) 180 tablet 1 4 Active sitagliptan (JANUVIA) 100 MG tabletIndications :Type 2 diabetes, HbA1c goal < 7% (H) Take 1 tablet (100 mg) by mouth daily 90 tablet 1 4 Active lisinopril-hydroc hlorothiazide (PRINZIDE,ZESTORE TIC) 20-12.5 MG per tabletIndications :Hypertension goal BP (blood pressure) < 140/90 Take 2 tablets by mouth daily 180 tablet 1 4 Active simvastatin (ZOCOR) 20 MG tabletIndications :Hyperlipidemia LDL goal <100 1 tab in the evening 90 tablet 1 4 Active Active Problems Problem Noted Date Diagnosed Date Hypertension goal BP (blood pressure) < 140/90 0 12/12/2010 TYPE 2 DIABETES, HBA1C GOAL < 7% 05/14/2010 Hyperlipidemia LDL goal <100 01/26/2008 Resolved Problems Problem Noted Date Diagnosed Date Resolved Date Diabetes mellitus, type 2 01/26/2008 Overview (04/15/2015): Problem list name updated by automated process. 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 Gender Identity Not on file Sexual Orientation Not on file Occupation Industry Job Start Date Job End Date Not on file Not on file Not on file Not on file Last Filed Vital Signs [...] 05/02/2011, Additional history exists MICROALBUMIN 05/07/2014 05/07/2013, 06/0 01/2012, 05/02/2011, Additional history exists A1C 05/16/2014 11/13/2013, 08/16, 05/07/2013, Additional history exists BMP 11/13/2014 11/13/2013, 04/15, 01/13/2013, Additional history exists RSV VACCINE (1 - Risk 60-74 years 1-dose series) 2018 COLONOSCOPY 01/04/2019 01/04/2009 COLORECTAL CANCER SCREENING 01/04/2019 DTAP/TDAP/TD IMMUNIZATION (2 - Td or Tdap) 06/10/2022 06/10/2012, 12/05/2007, 12/05/2007, Additional history exists FALL RISK ASSESSMENT 2023 MEDICARE ANNUAL WELLNESS VISIT 2023 PHQ-2 (once per calendar year) 2023 COVID-19 Vaccine ( season) 2024 03/26/2022, 07/05/2021, 10/28/2020, Additional history exists INFLUENZA VACCINE (#1) 2024 TSH W/FREE T4 REFLEX Discontinued 05/07/2013, 05/02/2011, 08/01/2009, Additional history exists ZOSTER IMMUNIZATION Completed 10/19/2020, 08/30/2020, 08/19/2020, Additional [...] 2 diabetes, HbA1C goal < 7% (H) TSH WITH FREE T4 REFLEX Routine 05/07/2013 8:22 AM CDT Hypertension goal BP (blood pressure) < 140/90 Type 2 diabetes, HbA1C goal < 7% (H) LIPID REFLEX TO DIRECT LDL PANEL Routine 05/07/2013 8:22 AM CDT Hyperlipidemia LDL goal <100 Hypertension goal BP (blood pressure) < 140/90 HCL PROSTATE SPEC ANTIGEN,SCREEN Routine 08/01/2009 9:37 AM FOUNTAIN WAITRESS/WAITER Screening PSA (Prostate Specific Antigen) COLONOSCOPY Routine 01/04/2009 10:55 AM CDT from Last 3 Months or Most Recently Relevant to Health Maintenance Results * (ABNORMAL) Hemoglobin A1c (11/13/2013 8:17 AM CDT) Hemoglobin A1C 7.9(H) 4.3 - 6.0 % [facility] Blood specimen (specimen) 11/13/2013 8:17 AM CDT 11/13/2013 8:22 AM CDT us Hardeep Pickett MD LAB - BLOOD ORDERABLES Final Result [facility] [address] [place] [address] * (ABNORMAL) Basic metabolic panel (11/13/2013 8:17 AM CDT) Sodium 135 133 - 144 mmol/L [facility] Potassium 4.3 3.4 - 5.3 mmol/L [facility] Chloride 95 94 - 109 mmol/L [facility] Carbon Dioxide 27 20 - 32 mmol/L [facility] Anion Gap 13 6 - 17 mmol/L [facility] Glucose 177(H) 60 - 99 mg/dL [facility] Urea Nitrogen 14 7 - 30 mg/dL [facility] Creatinine 0.77 0.66 - 1.25 mg/dL [facility] GFR Estimate >90 >60 mL/min/1.7 m2 [facility] GFR Estimate If Black >90 >60 mL/min/1.7 m2 [facility] Calcium 8.8 8.5 - 10.4 mg/dL [facility] Blood specimen (specimen) 11/13/2013 8:17 AM CDT 11/13/2013 8:22 AM CDT us Hardeep Pickett MD LAB - BLOOD ORDERABLES Final Result [facility] [address] [place] [address] * Microalbumin quantitative random urine (05/07/2013 8:32 AM CDT) Creatinine Urine 154 mg/dL [facility] Albumin Urine mg/L <5 Urine Microalbumin lowest reportable value has been changed from 2 mg/L to 5 mg/L due to a methodology change on October. mg/L [facility] Albumin Urine mg/g Cr Unable to calculate 0 - 17 mg/g Cr [facility] Urine specimen (specimen) 05/07/2013 8:32 AM CDT 05/07/2013 8:34 AM CDT Hardeep Pickett MD LAB - URINE ORDERABLES Final Result Performing Organization Address City/[facility]/ZIP Co de Phone Number [facility] [address] [place] [address] * TSH with free T4 reflex (05/07/2013 8:22 AM CDT) TSH 1.66 0.4 - 5.0 mU/L [facility] Blood specimen (specimen) 05/07/2013 8:22 AM CDT 05/07/2013 8:24 AM CDT us Hardeep Pickett MD LAB - BLOOD ORDERABLES Final Result [facility] [address] [place] [address] * (ABNORMAL) Lipid Profile with reflex to direct LDL (05/07/2013 8:22 AM CDT) Cholesterol 122 0 - 200 mg/dL [facility] Comment: LDL Cholesterol is the primary guide to therapy. The NCEP recommends further evaluation of: patients with cholesterol greater than 200 mg/dL if additional risk factors are present, cholesterol greater than 240 mg/dL, triglycerides greater than 150 mg/dL, or HDL less than 40 mg/dL. Triglycerides 248(H) 0 - 150 mg/dL [facility] HDL Cholesterol 32(L) 40 - 110 mg/dL [facility] LDL Cholesterol Calculated 40 0 - 129 mg/dL [facility] Comment: LDL Cholesterol is the primary guide to therapy: LDL-cholesterol goal in high risk patients is <100 mg/dL and in very high risk patients is <70 mg/dL. VLDL-Cholesterol 50(H) 0 - 30 mg/dL [facility] Cholesterol/HDL Ratio 3.8 0.0 - 5.0 [facility] Blood specimen (specimen) 05/07/2013 8:22 AM CDT 05/07/2013 8:24 AM CDT Hardeep Pickett MD LAB - BLOOD ORDERABLES Final Result Performing Organization Address City/[facility]/ZIP Co de Phone Number [facility] [address] [place] [address] * PROSTATE SPEC ANTIGEN,SCREEN (08/01/2009 9:37 AM FOUNTAIN WAITRESS/WAITER) PSA 2.60 0 - 4 ug/L [facility] 08/01/2009 9:37 AM FOUNTAIN WAITRESS/WAITER 08/01/2009 9:39 AM FOUNTAIN WAITRESS/WAITER us Hardeep Pickett MD LABORATORY Final Result Performing Organization Address City/[facility]/ZIP Co de Phone Number [facility] [address] [place] [address] * COLONOSCOPY (01/04/2009 10:55 AM CDT) COLONOSCOPY [...] ? saturations were monitored continuously. The ? [id number] was introduced through the anus and ? [...] Return to primary care physician PRN. ? Harriet Menezes M.D Jassi Menezes MD Signed Date: 01/04/2009 11:10 AM Number of Addenda: 0 I was physically present for the entire viewing portion of the exam. Note initiated on 01/04/2009 10:53 AM RADIOLOGY RESULTS COLONOSCOPY RADIOLOG Y RESULTS 01/04/2009 10:5 5 AM CDT Hardeephermelinda Pickett MD PROCEDURES Final Result RADIOLOGY RESULTS from Last 3 Months or Most Recently Relevant to Health Maintenance Insurance [facility] [place] Care Teams Client Support Professional Relationship Specialty Start Date End Date No Ref-Primary, Physician PCP - General 05/02/22
--- OUTSIDE RECORDS SUMMARY | 2024-05-26 09:36 | XMS_ITS | Encounter Summary ---
Author Organization [facility] Address [address] [place] [address] Care Team Providers Care Au Pair Name Role Phone Unavailable Primary Care Provider Unavailabl e Reason for Visit * Reason Onset Date Comments Pre-visit Intake 03/30/2024 Encounter Details Date Type Department Care Team (Latest Contact Info) Description 03/30/2024 9:45 AM CDT Clinical Communication Virtual Review in [place], [place] [address] [place] [id number] Pre-visit Intake Social History Tobacco Use Types Packs/Day Years Used Date Smoking Tobacco: Never Passive Smoke Exposure: Past Smokeless Tobacco: Never Tobacco Cessation:Counseling Given: Not Answered Passive Exposure Comments:Childhood & Adulthood (employment) Alcohol Use Standard Drinks/Week Comments Yes 0 (1 standard drink = 0.6 oz pur e alcohol) rarely [facility] Utilities Answer Date Recorded In the past 12 months has e [employer], gas, oil, or water [email or web address] threatened to shut off services in your [...] the money to buy more. Never true 12/15/20 23 Within the past 12 months, t [...] your living situation today? I have a [facility] to live 06/28/2023 Sex and Gender Information Value Date Recorded Sex Assigned at Male 06/28/2023 6:50 PM LIFE MANAGER Legal Sex Male 10:17 AM LIFE MANAGER Gender Identity Male 06/28/2023 6:50 PM LIFE MANAGER Sexual Orientation Straight 06/28/2023 6: 50 PM LIFE MANAGER documented as of this encounter Plan of Treatment Not on file documented as of this encounter Visit Diagnoses Not on filedocumented in this encounter
--- OUTSIDE RECORDS SUMMARY | 2024-05-26 09:36 | XMS_ITS | Clinical Summary ---
Author Organization [facility] Address [address] [place] [address] Care Team Providers Care Radio Talk Show Host Name Role Phone Unavailable Primary Care Provider Unavailabl e Source Comments Patient records contain information from all sites at [facility]. For routine questions regarding patient records, call [phone] during business hours, M-F 8:00 AM - 5:00 PM Central Time. Record requests for emergency care only can be directed to [phone] at any time.[facility] Allergies Active Allergy Reactions Criticality Noted Date [...] not applicable route daily. ACCU-CHEK MULTICLIX LANCETS [facility] 8 Active simvastatin (Zocor) 20 mg tablet [...] Hospital Encounter Department of Radiation Oncology in [address] [phone] Nathen Baker M.D. Rising Prostate Specific Antigen Following Treatment For Malignant Cancer Of Prostate (Primary Dx) 03/30/2024 9:45 AM CDT Clinical Communication Virtual Review in [address] [phone] Pre-visit Intake from Last 3 Months Family History Medical [...] alcohol) rarely [facility] Utilities Answer Date Recorded In the past 12 months has th e [employer], gas, oil, or water company threatened to [...] your living situation today? I have a [facility] place to live 06/28/2023 Sex and Gender Information Value Date Recorded Sex Assigned at Male 06/28/2023 6:50 PM HAND LAMINATOR Legal Sex Male 10:17 AM HAND LAMINATOR Gender Identity Male 06/28/2023 6:50 PM HAND LAMINATOR Sexual Orientation Straight 06/28/2023 6: 50 PM HAND LAMINATOR Last Filed Vital Signs Vital Sign Reading [...] Mass Index - - Plan of Treatment Health Maintenance Due Date Last Done Comments CT Colonography 1960 Cologuard 1960 Hepatitis C Screening 1960 Pneumococcal vaccine (65+ years) (1 of 2 - PCV) 1964 Colonoscopy 07/14/2022 07/14/2017, 01/04/2009 Colorectal Cancer Surveillance 07/14/2022 Creatinine Level (Kidney Function Test) 07/12/2023 07/12/2022 Potassium Level 07/12/2023 07/12/2022 Sodium Level 07/12/2023 07/12/2022 Depression Screening (Annual PHQ-2) 07/15/2023 COVID-19 Vaccine ( season) 2024 03/26/2022, 07/05/2021, 10/28/2020, Additional history exists Fasting Glucose for Diabetes Screening 07/11/2026 07/11/2023, 07/12/2022 DTaP,Tdap,and Td Vaccines (4 - Td or Tdap) 02/06/2034 02/07/2024, 06/10/2012, 12/05/2007, Additional history exists Zoster Vaccines Completed 10/19/2020, 08/15, 08/19/2020, Additional history exists Fall Risk Screen (Annual) Completed 10/25/2023 HPV Vaccines Aged Out No longer eligi ble based on patient's age to complete this topic IPV Vaccines Aged Out No longer eligi ble based on patient's age to complete this topic Procedures Procedure Name Priority Date/Time Associated Diagnosis Comments GLUCOSE POCT, B Routine 07/11/2023 2:50 PM HAND LAMINATOR from Last 3 Months or Most Recently Relevant to Health Maintenance Results * (ABNORMAL) Glucose, POCT (07/11/2023 2:50 PM HAND LAMINATOR) Glucose, POCT, B 212(H) 70 - 140 mg/dL 07/11/2023 2:54 PM HAND LAMINATOR PCMO Site Capillary 07/11/2023 2:54 PM HAND LAMINATOR PCMO Blood 07/11/2023 2:50 PM HAND LAMINATOR 07/11/2023 2:54 PM HAND LAMINATOR us Unknown Provider LAB POCT ORDERABLES-MANUAL Keely l Result [facility] [address] [place] [address], [place] PCMO [facility] [address] [place] [address] from Last 3 Months or Most Recently Relevant to Health Maintenance Insurance [facility] MEDICARE
--- OUTSIDE RECORDS SUMMARY | 2024-05-26 09:36 | XMS_ITS | Clinical Summary ---
Author Organization [facility] Address [place], [place] [address] Care Team Providers Care Aircraft Line Assembler Name Role Phone Toi Schwartz MD Primary [...] Comments Blood Pressure 117/61 07/12/2022 7:00 AM TEXT TRANSCRIBER Pulse 79 07/12/2022 7:00 AM TEXT TRANSCRIBER Temperature 36.7 ??C (98.1 ??F) 07/12/2022 7:00 AM CS T Respiratory Rate 14 07/12/2022 7:00 AM TEXT TRANSCRIBER Oxygen Saturation 93% 07/12/2022 7:00 AM TEXT TRANSCRIBER Inhaled Oxygen Concentration - - Weight 97.7 kg (215 lb 4.8 oz) 07/12/2022 6:00 A M TEXT TRANSCRIBER Height 167.6 cm (5' 6) 07/11/2022 6:47 AM TEXT TRANSCRIBER Body Mass Index 34.75 07/11/2022 6:47 AM TEXT TRANSCRIBER Plan of Treatment Health Maintenance Due Date [...] - PCV) 2023 COVID-19 vaccine series ( season) 2024 03/26/2022, 07/05/2021, 10/28/2020, Additional history exists Influenza for age 65+ 03/15/2024 Advance Directives * Full Code (Latest Code Status on File) Date Activated Date Inactivated Comments 07/11/2022 5:59 AM 07/12/2022 3:22 PM Question Answer Comments Code Status Discussion: Not Discussed Care Teams Aircraft Line Assembler Relationship Specialty Start Date End Date Toi Schwartz MD [address] [place] [address] PCP - General Family Practice 06/22/22
--- OUTSIDE RECORDS SUMMARY | 2024-05-26 09:36 | XMS_ITS | Encounter Summary ---
Author Organization [facility] Address [address] [place] [address] Care Team Providers Care Home Health Care Provider Name Role Phone Unavailable Primary Care Provider Unavailabl e Reason for Referral * Outpatient (Routine) - Authorized Specialty Diagnoses / Procedures Referred By Amandeep t Referred To Contact Radiation Oncology Sara Mcelroy P.A.-C., M.S. [address] [place] [phone] Phone: tel: fax: Nathen Baker M.D. [address] [place] [phone] Phone: tel: fax: Referral ID Status Reason Start Date Expiration Date V isits Requested Visits Authorized [id number] Authorized 04/01/2024 10/01/2025 1 1 Scheduling Instructions PSA prior at [facility] * Outpatient (Routine) - Closed Specialty Diagnoses / Procedures Referred By Contac t Referred To Contact Radiation Oncology Nathen Baker M.D. [address] [place] [phone] Phone: tel: fax: [facility] [place] [facility] Referral ID Status Reason Start Date Expiration Date Visits Re quested Visits Authorized [id number] Closed 12/02/2023 06/02/2025 1 1 Scheduling Instructions Mar 2024 Reason for Visit * Outpatient (Routine) - Closed Specialty Diagnoses / Procedures Referred By Contac t Referred To Contact Radiation Oncology Nathen Baker M.D. [address] [place] [address] Phone: tel: fax: [facility] Referral ID Status Reason Start Date Expiration Date Visits Re quested Visits Authorized [id number] Closed 12/02/2023 06/02/2025 1 1 Encounter Details Date Type Department Care Team (Latest Contact Info) Description 04/01/2024 3:01 PM CDT - 04/02/2024 1:52 PM CDT Hospital Encounter Department of Radiation Oncology in [place], [place] [address] [place] [phone] Nathen Baker M.D. [address] [place] [phone] Rising Prostate Specific Antigen Following Treatment For Malignant Cancer Of Prostate (Primary Dx) Social History Tobacco Use Types Packs/Day Years Used Date Smoking Tobacco: Never Passive Smoke Exposure: Past Smokeless Tobacco: Never Passive Exposure Comments:Ch ildhood & Adulthood (employment) Alcohol Use Standard Drinks/Week Comments Yes 0 (1 standard drink = 0.6 oz pur e alcohol) rarely [facility] Utilities Answer Date Recorded In the past 12 months has [employer] electric, gas, oil, or water company threatened [...] your living situation today? [facility] 06/28/2023 Sex and Gender Information Value Date Recorded Sex Assigned at Male 06/28/2023 6:50 PM FUR TRAPPER Legal Sex Male 10:17 AM FUR TRAPPER Gender Identity Male 06/28/2023 6:50 PM FUR TRAPPER Sexual Orientation Straight 06/28/2023 6: 50 PM FUR TRAPPER documented as of this encounter Last Filed [...] this encounter Medications at Time of Discharge aspirin 81 mg chewable tablet Chew 81 mg. 07/11/2022 calcium carbonate-vitam in D3 1,500 mg (600 mg calcium)-5 mcg (200 Unit) per tablet daily. Contour Test Strips Use to check blood sugars twice daily.* 06/24/2023 glipiZIDE (GLUCOTROL XL) 10 mg 24 hr tablet TAKE ONE TABLET BY MOUTH TWICE DAILY* lancets 1 test by not applicable route daily. ACCU-CHEK MULTICLIX LANCETS [facility] [place] 02/09/2008 lisinopril-hydr oCHLOROthiazide (PRINZIDE,ZESTO RETIC) 20-25 mg per tablet take 1 tab orally daily* 09/14/2021 metFORMIN (GLUCOPHAGE) 500 mg tablet Ozempic 1 mg/dose (4 mg/3 mL) injection INJECT 1 mg (0.75 mL) subcutaneously every week* simvastatin (ZOCOR) 20 mg tablet Take 1 tablet by mouth at bedtime. 09/10/2013 simvastatin (Zocor) 20 mg tablet Take 20 mg by mouth at bedtime. 03/02/2024 documented as of this encounter Progress Notes * Sara Mcelroy P.A.-C., M.S. - 04/01/2024 3:30 PM CDT SUBJECTIVE DIAGNOSIS 1. Rising Prostate Specific Antigen Following Treatment For Malignant Cancer Of Prostate SUPERVISED BY: Nathen Baker M.D. ([phone]) HISTORY OF PRESENT ILLNESS Mr. Vick Lafleur is a 64-year-old male with a rising PSA following prostatectomy. He completed salvage radiation therapy on December 03, 2023. His oncologic history is as follows: Oncology History Primary Malignant Neoplasm Of Prostate (HCC) 11/29/2021 Other 09/08/2021: PSA 6.28 ng/mL 11/29/2021: PSA 6.5 ng/mL Patient evaluated by Dr. Aubrey Stringer, Urology, for elevated PSA. RAUL demonstrated 40 cc prostate without firmness or nodularity, no tenderness or bogginess. 01/20/2022 Critical Imaging MR prostate FINDINGS: The prostate measures 4.8 x 4.0 x 3.6 cm. The prostate volume was estimated at 35.4 mL. No suspicious area of restricted diffusion either within the peripheral zone or within a transitionzone. No focal masslike area of reduced T2 signal or suspicious or enhancement. 03/21/2022 Biopsy/Pathology Final diagnosis Left: A. Benign prostatic tissue B. Adenocarcinoma; Wat[place] score 6 (3+3); 20% of the needle [...] tissue H. Benign prostatic tissue I. Adenocarcinoma; Wat[place] score 6 (3+3); 5% of the needle core tissue involved by tumor; 1 of 1 core involved J. Atypical small acinar proliferation K. Adenocarcinoma; Hemal score 6 (3+3); 50% of the needle core tissue involved by tumor; 1 of 1 core involved L. Atypical small acinar proliferation 6/12 positive cores 05/02/2022 Critical Imaging Bone scan demonstrated no signs of osseous metastases. CT abdomen and pelvis demonstrated mild prostatic enlargement with no convincing evidence for metastatic disease in the abdomen or pelvis. 07/11/2022 Surgery and Procedures Robotic assisted laparoscopic prostatectomy performed by Dr. Mal Serrano. Final Diagnosis A) PROSTATE AND PERIPROSTATIC ADIPOSE TISSUE, ROBOT ASSISTED PROSTATECTOMY: 1. Adenocarcinoma, characterized by: a. Hemal grade: 3 + 4 = 7 b. [...] Area of Extraprostatic Extension (EPE): Not identified [place] Pattern at Margin(s) Involved by Carcinoma: Pattern [...] scan revealed no evidence of metastatic osseous disease. CT abdomen and pelvis demonstrated no evidence of metastatic disease. 07/11/2023 Critical Imaging PSA 0.45 ng/mL. 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 07/30/2023 - 12/2023 Biological/Targeted/Hormone Therapy 07/30/2023: 7.5 mg leuprolide injection 08/27/2023: 22.5 mg leuprolide injection 11/19/2023: 7.5 mg leuprolide injection 10/21/2023 - 12/03/2023 Radiation Therapy Total dose of 6880 cGy in 32 fractions. Radiation Therapy Treatment Details (10/21/2023 - 12/03/2023) Site: Prostate bed Technique: IMRT Goal: Curative Planned Treatment Start Date: 10/21/2023 03/23/2024 Other PSA <0.06 ng/mL. Testosterone total 3 ng/dL. INTERVAL HISTORY: The patient was seen and examined today with Dr. Baker. The patient reports doing well overall. He rates his fatigue as 1/10 in severity. He reports decreased energy and leg fatigue with ADT. He denies hot flashes. He reports stable urination overall. He can experience occasional, small volume urinary incontinence, but reports that this is better overall. He uses one pad per day. He reports not performing his exercises from PT regularly. He denies dysuria or hematuria. He averages one bowel movement per day. He denies rectal bleeding or fecal incontinence. He denies concerns with erectile function. PATIENT COMPLETED QUESTIONNAIRES: I-PSS I-PSS Urinary Symptoms Score: 7 I-PSS Quality of Life Score: 3 IIEF-15 Erectile Function:08/13 Orgasmic Function:0/10 Sexual Desire:210 Joy Satisfaction: 0/15 Overall satisfaction:04/23 Total Score:13/75 REVIEW OF SYSTEMS Review of systems was negative except as documented above. PATIENT REPORTED SYMPTOM SCREEN: FATIGUE (Scale: 0 = no fatigue; 10 = worst fatigue you can imagine): 1 PAIN (Scale: 0 = no pain; 10 = worst pain you can imagine): 0 OVERALL QUALITY OF LIFE (Scale: 0 = as bad as can be; 10 = as good as can be): 10 OBJECTIVE BP 117/61 (BP Location: Right arm, Patient Position: Sitting, Cuff Size: Regular) Pulse 91 Temp37.1 ??C (Temporal) Wt 97.9 kg PHYSICAL EXAMINATION General: Alert and oriented, in no apparent distress. The patient is here today with his . ASSESSMENT / PLAN #1 Stage IIB (pT2, [...] and pelvic lymph nodes initiated on 2023; completed on December 03, 2023 The patient is doing well overall following radiation therapy, now almost 4 months from treatment completion. We reviewed his recent PSA result of less than 0.06 ng/mL and his testosterone total result of 3 ng/dL. We discussed the anticipated time frame of testosterone recovery following ADT. The patient was encouraged to continue with physical activity as he is able to help with his energy and maintain muscle. He was educated to start slow and gradual advance as he tolerates exercise well. He has already attended PT for pelvic floor re- training and he was encouraged to perform the exercises on a regular basis for maximum benefit. We discussed continued PSA monitoring following radiation therapy. We will order for a PSA and testosterone lab draw to be done in 3 months at [facility] in [place]. The patient will be contacted with the results by our care team when available. We will then order for return visit to be scheduled here in November 2024 with a pre-visit PSA lab draw completed. The patient will contact us with questions or concerns. He verbally expressed his understanding of the plan. EDUCATION: Ready to learn, no apparent learning barriers were identified; learning preferences include listening. Explained diagnosis and treatment plan; patient expressed understanding of the content. I personally spent 18 minutes in care of the patient today. Time includes both non face to face andface to face patient care. Signed by: Sara Mcelroy P.A.-C., M.S. 04/01/2024 4:06 PM CDT [facility] [address] [place] [address] Cosigned by Nathen Baker M.D. at 04/02/2024 1:52 PM CDT Associated attestation - Nathen Baker M.D. - 04/02/2024 1:52 PM CDT I saw and evaluated the patient and participated in the burkett portions of the service. I reviewed thedocumentation of Sara Mcelroy P.A.-C. and agree with the findings and plan. Mr. Vick Lafleur is a 64 y.o. male with a rising PSA following [...] 22.5mg leuprolide injection on August 27, 2023. He received a leuprolide 7.5 mg injection on November 19, 2023 for a total of 5 months of ADT. He completed salvage radiotherapy to the prostate fossa and pelvic lymph nodes on December 03, 2023. He returns in 4-month follow-up. His PSA on March 23, 2024 was undetectable and testosterone was low. He is recovering well from treatment. With some residual fatigue but no hot flashes. His urinary function is good with some small volume incontinence. He has had pelvic floor retraining but is not doing exercises faithfully. He has 1 bowel movement daily. ECOG performance status is 0. The patient appears well on exam. He is here with his Brandie. The patient is doing well now 4 months out from treatment completion. His PSA is undetectable and his testosterone is low. He will re zoom his efforts at pelvic floor exercise. Also begin physical exercise aiming for 30 minutes of exercise 5 days a week. We will continue to follow his PSA every 3 months at [facility] in [place]. We will contact him with those results. We will see him back in November of 2024 with pre visit laboratories. The patient can contact us in the interim with questions or concerns. He verbalized satisfaction with this plan. I have spent 10 minutes caring for this patient including [id number] and lyj-[id number]-gm-face time. Signed by: Nathen Baker M.D. 04/02/24 1:52 PM CDT [facility] [place] documented in this encounter Miscellaneous Notes * Addendum Note - Emily Estrada C.NEnoch - 04/01/2024 3:30 PM CDTEncounter addended by: Emily Estrada C.NEnoch on: 04/02/2024 3:28 PM Actions taken: Letter saved documented in this encounter Plan of Treatment Scheduled Orders Name Type Priority Associated Diagnoses Orde r Schedule PSA (Prostate-Specific Antigen), Diagnostic Lab Routine Rising Prostate Specific Antigen Following Treatment For Malignant Cancer Of Prostate Expected: 07/01/2024 (Approximate), Expires: 04/01/2025 PSA (Prostate-Specific Antigen), Diagnostic Lab Routine Rising Prostate Specific Antigen Following Treatment For Malignant Cancer Of Prostate Expected: 12/02/2024 (Approximate), Expires: 04/01/2025 Testosterone, Total by Mass Spectrometry, Serum Lab Routine Rising Prostate Specific Antigen Following Treatment For Malignant Cancer Of Prostate Expected: 07/01/2024, Expires: 07/01/2025 Scheduled Referrals Name Type Priority Associated Diagnoses Order Schedule Radiation Oncology office visit (clinic) Outpatient Referral Routine Once for 1 Occurrences starting 04/01/2024 until 04/01/2024 Radiation Oncology office visit (clinic) Outpatient Referral Routine Expected: (Approximate), Expires: 04/01/2025 documented as of this encounter Visit Diagnoses Diagnosis Rising Prostate Specific Antigen Following Treatment For Malignant Cancer Of Prostate- Primary documented in this encounter
--- OUTSIDE RECORDS SUMMARY | 2024-05-26 09:36 | XMS_ITS ---
Author Organization [facility] Address [address] [place] [address] Care Team Providers Care Dealer Sales Manager Name Role Phone Unavailable Unavailable Unavailable Surgery Details Not on file Complications Check Surgery Details section. Procedure Estimated Blood Loss Check Surgery Details section. Procedure Findings Check Surgery Details section. Procedure Specimens Taken Check Surgery Details section.
--- OUTSIDE RECORDS SUMMARY | 2024-05-26 09:36 | XMS_ITS | Encounter Summary ---
Author Organization [facility] Address [address] [place] [id number] Care Team Providers Care Senior Systems Software Engineer Name Role Phone Hardeep Pickett MD Primary Care Provider None Primary Care Provider Unavailabl e No Ref-Primary, Physician Primary Care Provider Reason for Visit * Reason Onset Date Comments MyChart Communication 06/08/2013 Encounter Details Date Type Department Care Team (Latest Contact Info) Description 06/08/2013 [facility] [id number] [place] [phone] Hardeep Pickett MD [address] [place] [phone] MyChart Communication Social History Tobacco Use Types Packs/Day Years Used Date Smoking Tobacco: Never Smokeless Tobacco: Never Alcohol Use Standard Drinks/Week Comments Yes 0 (1 standard drink = 0.6 oz pur e alcohol) RARE Sex and Gender Information Value Date Recorded Sex Assigned at Not on file 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
--- OUTSIDE RECORDS SUMMARY | 2024-05-26 09:36 | XMS_ITS | Referral Summary ---
Author Organization [facility] Address [address] [place] [address] Care Team Providers Care Bioprocess Development Engineer Name Role Phone No Ref-Primary, Physician Primary [...] on file Legal Sex Male 3:35 AM DRAFTER PATENT Gender Identity Not on file Sexual Orientation [...] PROSTATE SPEC ANTIGEN,SCREEN Routine 08/01/2009 9:37 AM DRAFTER PATENT Screening PSA (Prostate Specific Antigen) COLONOSCOPY Routine 01/04/2009 10:55 AM CDT from Last 3 Months or Most Recently Relevant to Health Maintenance Results * (ABNORMAL) Hemoglobin A1c (11/13/2013 8:17 AM CDT) Hemoglobin A1C 7.9(H) 4.3 - 6.0 % [facility] Blood specimen (specimen) 11/13/2013 8:17 AM CDT 11/13/2013 8:22 AM CDT Hardeep Pickett MD LAB - BLOOD ORDERABLES Final Result Performing Organization Address [facility] Co de Phone Number [facility] [address] [place] [address] * (ABNORMAL) Basic metabolic panel (11/13/2013 8:17 AM CDT) Sodium 135 133 - 144 mmol/L [facility] Potassium 4.3 3.4 - 5.3 mmol/L [facility] Chloride 95 94 - 109 mmol/L [facility] Carbon Dioxide 27 20 - 32 mmol/L [facility] Anion Gap 13 6 - 17 mmol/L [facility] Glucose 177(H) 60 - 99 mg/dL [facility] Urea Nitrogen 14 7 - 30 mg/dL [facility] Creatinine 0.77 0.66 - 1.25 mg/dL [facility] GFR Estimate >90 >60 mL/min/1.[address] [facility] GFR Estimate If Black >90 >60 mL/min/1.7 m2 [facility] Calcium 8.8 8.5 - 10.4 mg/dL [facility] Blood specimen (specimen) 11/13/2013 8:17 AM CDT 11/13/2013 8:22 AM CDT Hardeep Pickett MD LAB - BLOOD ORDERABLES Final Result Performing Organization Address [facility] Co de Phone Number [facility] [address] [place] [address] * Microalbumin quantitative random urine (05/07/2013 8:32 AM CDT) Creatinine Urine 154 mg/dL [facility] Albumin Urine mg/L <5 Urine Microalbumin lowest reportable value has been changed from 2 mg/L to 5 mg/L due to a methodology change on October. mg/L [facility] Albumin Urine mg/g Cr Unable to calculate 0 - 17 mg/g Cr [facility] Urine specimen (specimen) 05/07/2013 8:32 AM CDT 05/07/2013 8:34 AM CDT us Hardeep Pickett MD LAB - URINE ORDERABLES Final Result Performing Organization Address City/[facility]/ZIP Co de Phone Number [facility] [address] [place] [address] * TSH with free T4 reflex (05/07/2013 8:22 AM CDT) TSH 1.66 0.4 - 5.0 mU/L [facility] Blood specimen (specimen) 05/07/2013 8:22 AM CDT 05/07/2013 8:24 AM CDT Hardeep Pickett MD LAB - BLOOD ORDERABLES Final Result Performing Organization Address City/[facility] Co de Phone Number [facility] [address] [place] [address] * (ABNORMAL) Lipid Profile with reflex to direct LDL (05/07/2013 8:22 AM CDT) Cholesterol 122 0 - 200 mg/dL [facility] Comment: LDL Cholesterol is the primary guide to therapy. The NCEP recommends further evaluation of: patients with cholesterol greater than 200 mg/dL if additional risk factors are present, cholesterol greater than 240 mg/dL, triglycerides greater than 150 mg/dL, or HDL less than 40 mg/dL. Triglycerides 248(H) 0 - 150 mg/dL [facility] HDL Cholesterol 32(L) 40 - 110 mg/dL [facility] LDL Cholesterol Calculated 40 0 - 129 mg/dL [facility] Comment: LDL Cholesterol is the primary guide to therapy: LDL-cholesterol goal in high risk patients is <100 mg/dL and in very high risk patients is <70 mg/dL. VLDL-Cholesterol 50(H) 0 - 30 mg/dL [facility] Cholesterol/HDL Ratio 3.8 0.0 - 5.0 [facility] Blood specimen (specimen) 05/07/2013 8:22 AM CDT 05/07/2013 8:24 AM CDT us Hardeep Pickett MD LAB - BLOOD ORDERABLES Final Result Performing Organization Address City/[facility]/ZIP Co de Phone Number [facility] [address] [place] [address] * PROSTATE SPEC ANTIGEN,SCREEN (08/01/2009 9:37 AM DRAFTER PATENT) PSA 2.60 0 - 4 ug/L [facility] 08/01/2009 9:37 AM DRAFTER PATENT 08/01/2009 9:39 AM DRAFTER PATENT us Hardeep Pickett MD LABORATORY Final Result Performing Organization Address City/[facility]/ZIP Co de Phone Number [facility] [address] [place] [address] * COLONOSCOPY (01/04/2009 10:55 AM CDT) COLONOSCOPY [...] ? saturations were monitored continuously. The ? [id number] was introduced through the anus and ? [...] to primary care physician PRN. ? Harriet MccormackD Jassi Menezes MD Signed Date: 01/04/2009 11:10 AM Number of Addenda: 0 I was physically present for the entire viewing portion of the exam. Note initiated on 01/04/2009 10:53 AM RADIOLOGY RESULTS COLONOSCOPY RADIOLOG Y RESULTS 01/04/2009 10:5 5 AM CDT us Hardeep Pickett MD PROCEDURES Final Result RADIOLOGY RESULTS from Last 3 Months or Most Recently Relevant to Health Maintenance [place] Care Teams Bioprocess Development Engineer Relationship Specialty Start Date End Date No Ref-Primary, Physician PCP - General 05/02/22
== END 2024-05-25 08:14 | disposition home or self-care (01) ==
LOC: NFLDREF 05-26 09:34
PROVIDERS: PCP Family Medicine; Referring Provider Family Medicine; Visit Provider Family Medicine
DX: E78.5 Hyperlipidemia, unspecified (principal); I10 Essential (primary) hypertension; E11.9 Type 2 diabetes mellitus without complications; C61 Malignant neoplasm of prostate; Z12.5 Encounter for screening for malignant neoplasm of prostate
CPT/HCPCS: 80053; 80061; G0103